=== PATIENT | female | born 1935 | race Caucasian/White ===

== ENCOUNTER 2020-04-28 11:52 | Emergency (ER) | payer MEDICARE, OTHER ==
--- NOTE | 2020-04-28 12:03 | EDM.PDOC ---
ED HPI GENERAL MEDICAL PROBLEM - General Stated Complaint: FALL VIA NORTH Time Seen by Provider: 04/28/20 11:56 Source of Information: Reports: Patient, EMS History Limitations: Reports: No Limitations - History of Present Illness INITIAL COMMENTS - FREE TEXT/NARRATIVE: Kathy is an 84 year old female who presents to the ED today via EMS after she fell down 2 stairs, striking her face on a carpeted surface. Patient reports that her left knee gave out on her. She denies any chest pain, lightheadedness/ SOB prior to the fall. Patient denies any injuries other than right eye swelling. Patient denies any visual changes or any significant pain. Patient is currently receiving IV antibiotics out patient for LE stasis ulcerations. Patient arrives here bradycardic, states that her heart rate normally runs low. Onset: Today, Sudden - Related Data Allergies Allergy/AdvReac Type Severity Reaction Status Date / Time bee venom protein (honey bee) Allergy Severe Anaphylactic Verified 04/24/20 14: 50 Shock Sulfa (Sulfonamide Allergy Hives Verified 04/20/20 12:50 Antibiotics) Home Meds: Home Meds Aspirin [Children's Aspirin] 81 mg PO DAILY 04/20/20 [History] Furosemide 40 mg PO BID 04/20/20 [History] Insuln Asp Prot/Insulin Aspart [NovoLOG Mix 70-30] 22 units SQ QPM 04/20/20 [ History] Insuln Asp Prot/Insulin Aspart [NovoLOG Mix 70-30] 25 units SQ QAM 04/20/20 [ History] Levothyroxine Sodium [Synthroid] 125 mcg PO DAILY 04/20/20 [History] Simvastatin 80 mg PO DAILY 04/20/20 [History] atenoloL [Tenormin] 100 mg PO DAILY 04/20/20 [History] lisinopriL [Lisinopril] 40 mg PO DAILY 04/20/20 [History] Review of Systems - Review of Systems Review Of Systems: Comprehensive ROS is negative, except as noted in HPI. ED EXAM, GENERAL - Physical Exam Exam: See Below Exam Limited By: No Limitations General Appearance: Alert, WD/WN, No Apparent Distress Eye Exam: Bilateral Eye: EOMI, Normal Fundi, Normal Inspection, PERRL Ears: Normal External Exam Nose: Normal Inspection Throat/Mouth: Normal Oropharynx Head: Facial Swelling (right periorbital region, no crepitus) Neck: Normal Inspection, Supple, Non-Tender. No: Tender Lateral, Tender Midline Respiratory/Chest: No Respiratory Distress, Lungs Clear, Normal Breath Sounds, Chest Non-Tender Cardiovascular: Normal Peripheral Pulses, Bradycardia GI/Abdominal: Normal Bowel Sounds, Soft, Non-Tender Back Exam: Normal Inspection, Full Range of Motion. No: Vertebral Tenderness Extremities: Other (left leg wrapped due to ulcerations) Neurological: Alert, Oriented, CN II-XII Intact Psychiatric: Normal Affect, Normal Mood Skin Exam: Warm, Dry, Intact, Other (PICC line in left AC) Lymphatic: No Adenopathy Course - Vital Signs Text/Narrative:: Kathy is an 84 year old female, presents to the ED via EMS today after she fell down two steps. Please refer to HPI and focused exam. Trauma called secondary to mechanism. Patient arrives alert and oriented, no loc, only positive finding on exam is right periorbital swelling and bruising. CT of head , cervical spine and facial CT obtained. Heart rate is bradycardic, in the 40' s. Last two clinic visits in [facility] reviewed with heart rate in the 40's. Radiology called, patient has non displaced fractures through both pedicles at C5 with no subluxation. CT of head and facial bones/orbits are negative for anything acute related to fall. GCS remains 15. I discussed patient with neurosurgeon, Dr. Dunne at [facility] who states this is a stable fracture and would like patient to wear a cervical collar for 3 months at all times, no driving during this time, she would like to see her in 3 months for reimaging. Patient was placed in foam collar as a [place] collar and [place] collar will in now way fit due to patient's body habitus. Patient instructed on fracture, C-Collar use including wearing at all times including bedtime. Tylenol for pain, ice right eye. Reasons to return to the ED discussed in detail. Patient's updated on plan of care by nursing staff. Patient discharged in stable condition with her driving to her infusion appt which is at 2 PM. Patient discharged in stable condition with GCS of 15 and intact neuro/focal status. - Orders/Labs/Meds Orders: Active Orders 24 hr Category Date Time Status EKG Documentation Completion [RC] ASDIRECTED Care 04/28/20 12:03 Active EKG 12 Lead [EK] Stat Ther 04/28/20 12:03 Stop Req Departure - Departure Time of Disposition: 13:30 Disposition: Home, Self-Care 01 Condition: Fair Clinical Impression: Fall (on) (from) other stairs and steps, initial encounter, C5 pedicle fracture Periorbital contusion of right eye Qualifiers: Encounter type: initial encounter Qualified Code(s): S05.11XA - Contusion of eyeball and orbital tissues, right eye, initial encounter - Discharge Information Instructions: Fall Prevention in the Home, Adult, [id number], Eye Contusion, [id number], Cervical Spine Fracture, Stable Referrals: PCP,None [Primary Care Provider] - Additional Instructions: Kathy, Wear collar at all times, you can remove to bath and change clothes, wear at bedtime as well. Do not drive for 3 months until collar can be cleared which you will need to follow up with Dr. Dunne, neurosurgeon, at [facility], in 3 months for repeat Cervical spine CT scan. I would recommend Tylenol 650 mg every 4 hours for pain as needed, do not exceed more than 4,000 mg in 24 hours. Ice to right eye for twenty minutes every couple of hours for the first 2 days. Return here with any new concerns or worsening symptoms. - My Orders Last 24 Hours: My Active Orders 04/28/20 12:03 EKG Documentation Completion [RC] ASDIRECTED EKG 12 Lead [EK] Stat - Assessment/Plan Last 24 Hours: My Active Orders 04/28/20 12:03 EKG Documentation Completion [RC] ASDIRECTED EKG 12 Lead [EK] Stat
--- NOTE | 2020-04-28 12:56 | CT ---
Cervical Spine wo Cont CLINICAL HISTORY: Fall TECHNIQUE: Multiple CT sections were taken through the cervical spine in the transaxial projection. Coronal and sagittal views were reconstructed. Images were viewed at bone as well as soft tissue windows on a digital workstation. Auto dosage reduction and iterative reconstruction techniques employed. FINDINGS: There is a nondisplaced fracture through both pedicles at C5. There is severe diffuse degenerative disc disease. There is moderate osteoarthritis throughout the cervical facets. Alignment is maintained. IMPRESSION: Nondisplaced fractures through both pedicles at C5. 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
--- NOTE | 2020-04-28 12:59 | CT ---
Head wo Cont CLINICAL HISTORY: Fall COMPARISON: None TECHNIQUE: Transverse scans were obtained from the base of the skull through the vertex without IV contrast on a multislice, multidetector CT scanner. 04/27/2020 FINDINGS: No focal abnormal parenchymal density is identified.. There is no mass effect, hemorrhage, or extraaxial collection. The basal cisterns and sulci over the convexities are prominent. The ventricles are prominent. There is sphenoid sinusitis. IMPRESSION: Moderate age-related atrophy. No acute intracranial findings
--- NOTE | 2020-04-28 13:07 | CT ---
Max Facial Sinus wo Cont : TECHNIQUE: Axial tomographic images were obtained from the upper calvarium through the upper neck, without iodinated contrast enhancement. Auto dosage reduction and iterative reconstruction techniques employed. CLINICAL HISTORY: Patient trauma FINDINGS: There is left maxillary, ethmoid and sphenoid sinusitis. Bony sinuses are intact. There is some moderate leftward deviation of the nasal septum and some leftward the angulation of the nasal bones. This is likely chronic. There is a punctate ossific or calcific density just off the tip of the anterior nasal spine. A small fracture is not excluded. Zygomatic arches are intact. Bony orbits appear intact orbital fat planes are well preserved. Mandible and TMJs appear intact IMPRESSION: Pansinusitis Moderate deviation of the nasal septum and curvature of the nasal bones Small defect off the tip of the anterior nasal spine could represent a tiny fracture
== END 2020-04-28 13:20 | disposition home or self-care (01) ==
LOC: JP.ED 11:52
DX: S12.401A Unspecified nondisplaced fracture of fifth cervical vertebra, initial encounter for closed fracture (principal); W10.8XXA Fall (on) (from) other stairs and steps, initial encounter; S05.11XA Contusion of eyeball and orbital tissues, right eye, initial encounter; Z91.030 Bee allergy status; Z88.2 Allergy status to sulfonamides; Z79.82 Long term (current) use of aspirin; Z79.84 Long term (current) use of oral hypoglycemic drugs; Z79.899 Other long term (current) drug therapy; L08.9 Local infection of the skin and subcutaneous tissue, unspecified
CPT/HCPCS: 70450; 70486; 72125; 96365; 99284; 99285; J1335; J7050; 93005

== ENCOUNTER 2020-04-29 19:57 | Emergency (ER) | payer MEDICARE, OTHER ==
--- NOTE | 2020-04-29 20:28 | EDM.PDOC ---
ED HPI GENERAL MEDICAL PROBLEM - General Chief Complaint: General Stated Complaint: MEDICAL VIA NORTH Time Seen by Provider: 04/29/20 20:13 Source of Information: Reports: Patient, Old Records, RN Notes Reviewed History Limitations: Reports: No Limitations - History of Present Illness INITIAL COMMENTS - FREE TEXT/NARRATIVE: 84-year-old female presents emergency department today for a fall, she was evaluated in the emergency department yesterday for a fall fell down [address] scan head facial bones and neck abnormality is nondisplaced fracture C5 pedicles. She also has a known history of bradycardia review of clinic records reveal multiple visits heart rate in the 40s she does take 100 mg daily of atenolol history of hypertension, she denies pain at this time states today's fall was mainly on her backside she did not hit her head there was no loss of consciousness she recently acquired a walker yesterday but has not had time to use it denies pain Pain Score (Numeric/FACES): 0 - Related Data Allergies Allergy/AdvReac Type Severity Reaction Status Date / Time bee venom protein (honey bee) Allergy Severe Anaphylactic Verified 04/29/20 20: 00 Shock Sulfa (Sulfonamide Allergy Hives Verified 04/29/20 20:00 Antibiotics) Home Meds: Home Meds Aspirin [Children's Aspirin] 81 mg PO DAILY 04/20/20 [History] Furosemide 40 mg PO BID 04/20/20 [History] Insuln Asp Prot/Insulin Aspart [NovoLOG Mix 70-30] 22 units SQ QPM 04/20/20 [ History] Insuln Asp Prot/Insulin Aspart [NovoLOG Mix 70-30] 25 units SQ QAM 04/20/20 [ History] Levothyroxine Sodium [Synthroid] 125 mcg PO DAILY 04/20/20 [History] Simvastatin 80 mg PO DAILY 04/20/20 [History] atenoloL [Tenormin] 100 mg PO DAILY 04/20/20 [History] lisinopriL [Lisinopril] 40 mg PO DAILY 04/20/20 [History] Past Medical History Cardiovascular History: Reports: Arrhythmia (Bradycardia), Hypertension Respiratory History: Reports: Sleep Apnea Social & Family History - Tobacco Use Smoking Status *Q: Never Smoker - Caffeine Use Caffeine Use: Reports: Coffee, Soda - Recreational Drug Use Recreational Drug Use: No ED ROS GENERAL - Review of Systems Review Of Systems: See Below Constitutional: Reports: No Symptoms HEENT: Reports: No Symptoms Respiratory: Reports: No Symptoms Cardiovascular: Reports: Other (Slow heart rate). Denies: Chest Pain, Blood Pressure Problem, Lightheadedness GI/Abdominal: Reports: No Symptoms : Reports: No Symptoms Musculoskeletal: Reports: No Symptoms Skin: Reports: No Symptoms Neurological: Reports: No Symptoms ED EXAM, GENERAL - Physical Exam Exam: See Below Free Text/Narrative:: No tenderness to shoulders elbows wrists bilaterally no chest wall tenderness pelvic rocks is negative no tenderness to knees ankles bilaterally Exam Limited By: Other (Is in a soft collar placed yesterday) General Appearance: Alert, WD/WN, No Apparent Distress Ears: Normal External Exam, Normal Canal, Hearing Grossly Normal, Normal TMs Nose: Normal Inspection, Normal Mucosa, No Blood Throat/Mouth: Normal Inspection, Normal Lips, Normal Teeth, Normal Gums, Normal Oropharynx, Normal Voice, No Airway Compromise Head: Atraumatic, Normocephalic Neck: Other (Placed in a soft collar) Respiratory/Chest: No Respiratory Distress, Lungs Clear, Normal Breath Sounds, No Accessory Muscle Use, Chest Non-Tender Cardiovascular: No Murmur, Bradycardia GI/Abdominal: Soft, Non-Tender Course - Vital Signs Last Recorded V/S: Last Vital Signs Temp 97.3 F 04/29/20 20:04 Pulse 49 L 04/29/20 21:27 Resp 29 H 04/29/20 21:27 BP 190/79 H 04/29/20 21:27 Pulse Ox 93 L 04/29/20 21:27 - Orders/Labs/Meds Orders: Active Orders 24 hr Category Date Time Status CULTURE URINE [RM] Urgent Lab 04/29/20 22:02 Received Labs: Laboratory Tests 04/29/20 04/29/20 04/29/20 Range/Units 20:24 21:06 21:06 WBC 11.9 H (4.5-11.0) K/uL RBC 4.81 (3.30-5.50) M/uL Hgb 12.5 (12.0-15.0) g/dL Hct 41.4 (36.0-48.0) % MCV 86 (80-98) fL MCH 26 L (27-31) pg MCHC 30 L (32-36) % Plt Count 146 L (150-400) K/uL Neut % (Auto) 77 H (36-66) % Lymph % (Auto) 14 L (24-44) % [place] % (Auto) 8 H (2-6) % Eos % (Auto) 1 L (2-4) % Baso % (Auto) 0 (0-1) % Sodium 145 (140-148) mmol/L Potassium 5.0 (3.6-5.2) mmol/L Chloride 109 H (100-108) mmol/L Carbon Dioxide 26 (21-32) mmol/L Anion Gap 15.0 H (5.0-14.0) mmol/L BUN 25 H (7-18) mg/dL Creatinine 1.0 (0.6-1.0) mg/dL Est Cr Clr Drug Dosing 32.53 mL/min Estimated GFR (MDRD) 53 L (>60) Glucose 87 (74-106) mg/dL Lactic Acid 1.5 (0.4-2.0) mmol/L Calcium 9.1 (8.5-10.1) mg/dL Total Bilirubin 0.9 (0.2-1.0) mg/dL AST 39 H (15-37) U/L ALT 44 (12-78) U/L Alkaline Phosphatase 80 (46-116) U/L Troponin I 0.024 (0.000-0.056) ng/mL Total Protein 7.1 (6.4-8.2) g/dL Albumin 3.2 L (3.4-5.0) g/dL Globulin 3.9 H (2.3-3.5) g/dL Albumin/Globulin Ratio 0.8 L (1.2-2.2) Urine Color (YELLOW) Urine Appearance (CLEAR) Urine pH (5.0-8.0) Ur Specific [place] (1.008-1.030) Urine Protein (NEGATIVE) mg/dL Urine Glucose (UA) (NEGATIVE) mg/dL Urine Ketones (NEGATIVE) mg/dL Urine Occult Blood (NEGATIVE) Urine Nitrite (NEGATIVE) Urine Bilirubin (NEGATIVE) Urine Urobilinogen (0.2-1.0) EU/dL Ur Leukocyte Esterase (NEGATIVE) Urine RBC (0-5) Urine WBC (0-5) Ur Epithelial Cells Amorphous Sediment Urine Bacteria Urine Mucus 04/29/20 Range/Units 21:36 WBC (4.5-11.0) K/uL RBC (3.30-5.50) M/uL Hgb (12.0-15.0) g/dL Hct (36.0-48.0) % MCV (80-98) fL MCH (27-31) pg MCHC (32-36) % Plt Count (150-400) K/uL Neut % (Auto) (36-66) % Lymph % (Auto) (24-44) % [place] % (Auto) (2-6) % Eos % (Auto) (2-4) % Baso % (Auto) (0-1) % Sodium (140-148) mmol/L Potassium (3.6-5.2) mmol/L Chloride (100-108) mmol/L Carbon Dioxide (21-32) mmol/L Anion Gap (5.0-14.0) mmol/L BUN (7-18) mg/dL Creatinine (0.6-1.0) mg/dL Est Cr Clr Drug Dosing mL/min Estimated GFR (MDRD) (>60) Glucose (74-106) mg/dL Lactic Acid (0.4-2.0) mmol/L Calcium (8.5-10.1) mg/dL Total Bilirubin (0.2-1.0) mg/dL AST (15-37) U/L ALT (12-78) U/L Alkaline Phosphatase (46-116) U/L Troponin I (0.000-0.056) ng/mL Total Protein (6.4-8.2) g/dL Albumin (3.4-5.0) g/dL Globulin (2.3-3.5) g/dL Albumin/Globulin Ratio (1.2-2.2) Urine Color Yellow (YELLOW) Urine Appearance Slightly cloudy A (CLEAR) Urine pH 7.0 (5.0-8.0) Ur Specific [place] 1.020 (1.008-1.030) Urine Protein 30 H (NEGATIVE) mg/dL Urine Glucose (UA) Negative (NEGATIVE) mg/dL Urine Ketones Negative (NEGATIVE) mg/dL Urine Occult Blood Small H (NEGATIVE) Urine Nitrite Negative (NEGATIVE) Urine Bilirubin Negative (NEGATIVE) Urine Urobilinogen 0.2 (0.2-1.0) EU/dL Ur Leukocyte Esterase Small H (NEGATIVE) Urine RBC 0-5 (0-5) Urine WBC 5-10 H (0-5) Ur Epithelial Cells Many Amorphous Sediment Many Urine Bacteria Not seen Urine Mucus Not seen - Re-Assessments/Exams Free Text/Narrative Re-Assessment/Exam: 04/29/20 22:06 We did go for test drive around the emergency department she used a walker moves slow however she was able to get out of bed use the walker ambulate around the emergency department without difficulty heart rate monitor at that time showed an excellent response heart rate was in the upper 50s to mid 60s during her ambulation, remained asymptomatic during this road test Departure - Departure Time of Disposition: 22:08 Disposition: Home, Self-Care 01 Condition: Fair Clinical Impression: Weakness, Bradycardia - Discharge Information Instructions: Weakness, [id number], Bradycardia, Adult Referrals: PCP,None [Primary Care Provider] - Forms: ED Department Discharge Additional Instructions: Continue with your current medications, recommend using the walker at all times , please follow-up with your primary care in the next 3 to 5 days for reevaluation, call or return to the emergency department worsening of symptoms Sepsis Event Note (ED) - Evaluation Sepsis Screening Result: No Definite Risk - Focused Exam Vital Signs: Vital Signs Temp Pulse Resp BP Pulse Ox 04/29/20 21:27 49 L 29 H 190/79 H 93 L 04/29/20 20:51 34 L 15 126/69 92 L 04/29/20 20:24 40 L 18 139/65 92 L 04/29/20 20:04 97.3 F 44 L 14 154/62 H 93 L 04/29/20 20:00 97.3 F 44 L 14 154/62 H 93 L - My Orders Last 24 Hours: My Active Orders 04/29/20 22:02 CULTURE URINE [RM] Urgent - Assessment/Plan Last 24 Hours: My Active Orders 04/29/20 22:02 CULTURE URINE [RM] Urgent Plan: Assessment Acuity = acute Site and laterality = weakness with increasing falls, asymptomatic bradycardia Etiology = unknown probable deconditioning, bradycardia suspicious for relationship to atenolol Manifestations = none Location of injury = Home Lab values = CBC CMP unremarkable urinalysis reveals 5-10 WBCs consistent with a pyuria however no bacteria noted in the urine cultures pending she is currently on antibiotics Invanz Plan I discussed with her hospitalization for weakness versus discharge home she would like to try it at home however she must use her walker whenever she ambulates I discussed this with her as well. Have him follow-up with her primary care in the next 3 to 5 days for reevaluation and also review beta- jersey for the ongoing bradycardia at rest This note was dictated using [employer] voice recognition software please call with any questions on syntax or grammar.
== END 2020-04-29 22:23 | disposition home or self-care (01) ==
LOC: JP.ED 19:57
DX: R53.1 Weakness (principal); R00.1 Bradycardia, unspecified; I10 Essential (primary) hypertension; L08.9 Local infection of the skin and subcutaneous tissue, unspecified; Z88.2 Allergy status to sulfonamides; Z91.030 Bee allergy status; Z79.82 Long term (current) use of aspirin; Z79.899 Other long term (current) drug therapy
CPT/HCPCS: 36415; 80053; 81001; 83605; 84484; 85025; 87086; 96365; 99283; 99284; J1335; J7050

== ENCOUNTER 2020-04-30 18:06 | Inpatient (IN) | payer MEDICARE, OTHER ==
[2020-04-30] MEDS ORDERED: Ertapenem 1 GM in Sodium Chloride 0.9% 100 ML IV ONE (19:13)
--- NOTE | 2020-04-30 19:43 | EDM.PDOC ---
ED HPI GENERAL MEDICAL PROBLEM - General Chief Complaint: General Stated Complaint: MEDICAL [facility] Time Seen by Provider: 04/30/20 18:55 Source of Information: Reports: Patient History Limitations: Reports: No Limitations - History of Present Illness INITIAL COMMENTS - FREE TEXT/NARRATIVE: This is an 84-year-old with a history of hypertension, diabetes, and recent fall who presents to the emergency department with weakness. She reports that she was seen in the ED on Friday after a fall from her mechanical chair. Trauma work-up was negative at that time. She was again seen yesterday for weakness, overall work-up was unrevealing, she was noted to be bradycardic which is not a new problem for her. She was able to pass an ambulatory trial and after discussion with the ED doctor last night, the patient decided to go home rather than be admitted. Early this morning she slid out of her bed, no head strike or LOC. Due to global weakness the patient was unable to get back to standing position. She spent the entire day today on the floor, sometimes crawling around her home. Even with the assistance of her she was unable to stand. She has no headache. No focal weakness. No speech difficulty. She endorses a chronic cough, no fevers or chills, no chest pain. No abdominal pain or urinary symptoms. 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 denies Pain Score (Numeric/FACES): 0 - Related Data Allergies Allergy/AdvReac Type Severity Reaction Status Date / Time bee venom protein (honey bee) Allergy Severe Anaphylactic Verified 04/29/20 20: 00 Shock Sulfa (Sulfonamide Allergy Hives Verified 04/29/20 20:00 Antibiotics) Home Meds: Home Meds Aspirin [Children's Aspirin] 81 mg PO DAILY 04/20/20 [History] Furosemide 40 mg PO BID 04/20/20 [History] Insuln Asp Prot/Insulin Aspart [NovoLOG Mix 70-30] 22 units SQ QPM 04/20/20 [ History] Insuln Asp Prot/Insulin Aspart [NovoLOG Mix 70-30] 25 units SQ QAM 04/20/20 [ History] Levothyroxine Sodium [Synthroid] 125 mcg PO DAILY 04/20/20 [History] Simvastatin 80 mg PO DAILY 04/20/20 [History] atenoloL [Tenormin] 100 mg PO DAILY 04/20/20 [History] lisinopriL [Lisinopril] 40 mg PO DAILY 04/20/20 [History] Past Medical History HEENT History: Reports: Cataract Cardiovascular History: Reports: Arrhythmia, Hypertension Respiratory History: Reports: Sleep Apnea Other Respiratory History: Cpap at home Genitourinary History: Reports: Renal Disease, Other (See Below) Other Genitourinary History: Stage 3 kidney disease Musculoskeletal History: Reports: Arthritis Endocrine/Metabolic History: Reports: Diabetes, Type II, Hypothyroidism Hematologic History: Reports: Anticoagulation Therapy Oncologic (Cancer) History: Reports: Uterine Dermatologic History: Reports: Other (See Below) Other Dermatologic History: Venous ulcer left leg - Infectious Disease History Infectious Disease History: Reports: Chicken Pox - Past Surgical History HEENT Surgical History: Reports: Cataract Surgery, Tonsillectomy Female Surgical History: Reports: Hysterectomy Social & Family History - Tobacco Use Smoking Status *Q: Never Smoker - Caffeine Use Caffeine Use: Reports: Coffee ED ROS GENERAL - Review of Systems Review Of Systems: See Below Constitutional: Reports: Weakness HEENT: Reports: No Symptoms Respiratory: Reports: No Symptoms Cardiovascular: Reports: No Symptoms Endocrine: Reports: No Symptoms GI/Abdominal: Reports: No Symptoms : Reports: No Symptoms Musculoskeletal: Reports: No Symptoms Skin: Reports: No Symptoms Neurological: Reports: No Symptoms Psychiatric: Reports: No Symptoms Hematologic/Lymphatic: Reports: No Symptoms Immunologic: Reports: No Symptoms ED EXAM, GENERAL - Physical Exam Exam: See Below Exam Limited By: No Limitations General Appearance: Alert, No Apparent Distress Nose: Normal Inspection Throat/Mouth: Normal Inspection Head: Normocephalic, Other (Ecchymosis over the right eye, vision is intact, no pain with extraocular movements.) Neck: Normal Inspection, Non-Tender, Full Range of Motion Respiratory/Chest: Lungs Clear Cardiovascular: No Murmur, Bradycardia GI/Abdominal: Soft, Non-Tender Back Exam: Normal Inspection, Full Range of Motion Extremities: Pedal Edema Neurological: Alert, Oriented Psychiatric: Normal Affect, Normal Mood Skin Exam: Warm, Dry EKG INTERPRETATION EKG Date: 04/30/20 Rhythm: A-Fib Course - Vital Signs Last Recorded V/S: Last Vital Signs Temp 37.5 C 04/30/20 21:09 Pulse 39 L 04/30/20 21:09 Resp 20 04/30/20 21:09 BP 174/102 H 04/30/20 21:29 Pulse Ox 96 04/30/20 21:22 - Orders/Labs/Meds Orders: Active Orders 24 hr Category Date Time Status EKG Documentation Completion [RC] ASDIRECTED Care 04/30/20 18:23 Active CXR [Chest 1V Frontal] [CR] Stat Exams 04/30/20 18:24 Taken EKG 12 Lead [EK] Routine Ther 04/30/20 18:22 Ordered Medication Orders Acetaminophen (Tylenol) 650 mg PO Q4H PRN PRN Reason: Pain (Mild 1-3)/fever Albuterol (Proventil Neb Soln) 2.5 mg NEB Q4H PRN PRN Reason: Shortness Of Breath/wheezing Enoxaparin Sodium (Lovenox) 30 mg SUBCUT DAILY [facility] Furosemide (Lasix) 40 mg PO DAILY [facility] Hydroxyzine HCl (Vistaril) 100 mg IM Q6H PRN PRN Reason: Nausea/Vomiting Promethazine HCl 6.25 mg/ (Sodium Chloride) 50.25 mls @ 200 mls/hr IV Q6H PRN PRN Reason: Nausea/Vomiting Ertapenem 1 gm/ Sodium (Chloride) 100 mls @ 200 mls/hr IV Q24H [facility] Insulin Human Isoph/Insulin Regular (Humulin 70-30) 25 units SUBCUT BIDAC [facility] Levothyroxine Sodium (Synthroid) 100 mcg PO ACBREAKFAST [facility] Lisinopril (Prinivil) 40 mg PO DAILY [facility] Morphine Sulfate (Morphine) 2 mg IVPUSH Q2H PRN PRN Reason: Pain (severe 7-10) Ondansetron HCl (Zofran Odt) 4 mg PO Q6H PRN PRN Reason: Nausea able to take PO Oxycodone HCl (Oxycodone) 5 mg PO Q4H PRN PRN Reason: Pain (moderate 4-6) Simvastatin (Zocor) 80 mg PO BEDTIME [facility] Last Admin: 04/30/20 21:48 Dose: 80 mg Labs: Laboratory Tests 04/30/20 04/30/20 04/30/20 Range/Units 18:00 18:36 18:36 WBC 10.5 (4.5-11.0) K/uL RBC 4.90 (3.30-5.50) M/uL Hgb 12.4 (12.0-15.0) g/dL Hct 42.1 (36.0-48.0) % MCV 86 (80-98) fL MCH 25 L (27-31) pg MCHC 30 L (32-36) % Plt Count 198 (150-400) K/uL Sodium 145 (140-148) mmol/L Potassium 3.9 (3.6-5.2) mmol/L Chloride 107 (100-108) mmol/L Carbon Dioxide 30 (21-32) mmol/L Anion Gap 7.9 (5.0-14.0) mmol/L BUN 22 H (7-18) mg/dL Creatinine 1.1 H (0.6-1.0) mg/dL Est Cr Clr Drug Dosing 29.57 mL/min Estimated GFR (MDRD) 47 L (>60) Glucose 134 H (74-106) mg/dL Calcium 8.9 (8.5-10.1) mg/dL Magnesium (1.8-2.4) mg/dL Total Bilirubin 1.1 H (0.2-1.0) mg/dL AST 43 H (15-37) U/L ALT 45 (12-78) U/L Alkaline Phosphatase 82 (46-116) U/L Troponin I (0.000-0.056) ng/mL Total Protein 7.0 (6.4-8.2) g/dL Albumin 3.2 L (3.4-5.0) g/dL Globulin 3.8 H (2.3-3.5) g/dL Albumin/Globulin Ratio 0.8 L (1.2-2.2) TSH, Ultra Sensitive 2.147 (0.358-3.740) uIU/mL 04/30/20 04/30/20 Range/Units 18:36 18:36 WBC (4.5-11.0) K/uL RBC (3.30-5.50) M/uL Hgb (12.0-15.0) g/dL Hct (36.0-48.0) % MCV (80-98) fL MCH (27-31) pg MCHC (32-36) % Plt Count (150-400) K/uL Sodium (140-148) mmol/L Potassium (3.6-5.2) mmol/L Chloride (100-108) mmol/L Carbon Dioxide (21-32) mmol/L Anion Gap (5.0-14.0) mmol/L BUN (7-18) mg/dL Creatinine (0.6-1.0) mg/dL Est Cr Clr Drug Dosing mL/min Estimated GFR (MDRD) (>60) Glucose (74-106) mg/dL Calcium (8.5-10.1) mg/dL Magnesium 2.2 (1.8-2.4) mg/dL Total Bilirubin (0.2-1.0) mg/dL AST (15-37) U/L ALT (12-78) U/L Alkaline Phosphatase (46-116) U/L Troponin I 0.026 (0.000-0.056) ng/mL Total Protein (6.4-8.2) g/dL Albumin (3.4-5.0) g/dL Globulin (2.3-3.5) g/dL Albumin/Globulin Ratio (1.2-2.2) TSH, Ultra Sensitive (0.358-3.740) uIU/mL Meds: Medications Generic Name Dose Route Start Last Admin Trade Name Freq PRN Reason Stop Dose Admin Acetaminophen 650 mg 04/30/20 20:17 Tylenol PO Q4H PRN Pain (Mild 1-3)/fever Albuterol 2.5 mg 04/30/20 20:17 Proventil Neb Soln NEB Q4H PRN Shortness Of Breath/wheezing Enoxaparin Sodium 30 mg 05/01/20 09:00 Lovenox SUBCUT DAILY [facility] Furosemide 40 mg 05/01/20 09:00 Lasix PO DAILY [facility] Hydroxyzine HCl 100 mg 04/30/20 20:17 Vistaril IM Q6H PRN Nausea/Vomiting Promethazine HCl 6.25 mg/ 50.25 mls @ 200 mls/hr 04/30/20 20:17 Sodium Chloride IV Q6H PRN Nausea/Vomiting Ertapenem 1 gm/ Sodium 100 mls @ 200 mls/hr 05/01/20 20:00 Chloride IV Q24H [facility] Insulin Human Isoph/Insulin Regular 25 units 05/01/20 07:30 Humulin 70-30 SUBCUT BIDAC [facility] Levothyroxine Sodium 100 mcg 05/01/20 07:30 Synthroid PO ACBREAKFAST [facility] Lisinopril 40 mg 05/01/20 09:00 Prinivil PO DAILY [facility] Morphine Sulfate 2 mg 04/30/20 20:17 Morphine IVPUSH Q2H PRN Pain (severe 7-10) Ondansetron HCl 4 mg 04/30/20 20:17 Zofran Odt PO Q6H PRN Nausea able to take PO Oxycodone HCl 5 mg 04/30/20 20:17 Oxycodone PO Q4H PRN Pain (moderate 4-6) Simvastatin 80 mg 04/30/20 21:00 04/30/20 21:48 Zocor PO 80 mg BEDTIME [facility] Administration Discontinued Medications Generic Name Dose Route Start Last Admin Trade Name Freq PRN Reason Stop Dose Admin Ertapenem 1 gm/ Sodium 100 mls @ 200 mls/hr 04/30/20 19:13 04/30/20 19:23 Chloride IV 04/30/20 19:42 200 mls/hr ONETIME ONE Administration Levothyroxine Sodium 25 mcg 04/30/20 20:39 04/30/20 21:37 Levothyroxine PO 04/30/20 20:40 Not Given ONETIME ONE - Re-Assessments/Exams Free Text/Narrative Re-Assessment/Exam: 84-year-old presents with global weakness. This in the setting of recent fall. By history and exam she has no acute inciting event. She is noted to be bradycardic in the emergency department, EKG reveals slow A. fib. Exam does not show any evidence of missed traumatic injuries. She is on a low level of supplemental oxygen, but does wear this at night. Bedside ultrasound was performed which shows a grossly preserved ejection fraction. Lab work is generally unrevealing including troponin testing. BNP is pending, as well as TSH. She is not safe to be at home, at minimum requires admission for this. I did give her a dose of ertapenem which she is maintained on as an outpatient through her wound clinic. Admitted for further work-up. 04/30/20 19:44 Departure - Departure Time of Disposition: 21:00 Disposition: Admitted As Inpatient 65 Clinical Impression: Bradycardia, Fall (on) (from) other stairs and steps, subsequent encounter, Weakness A-fib Qualifiers: Atrial fibrillation type: unspecified Qualified Code(s): I48.91 - Unspecified atrial fibrillation - Discharge Information Sepsis Event Note (ED) - Evaluation Sepsis Screening Result: No Definite Risk - Focused Exam Vital Signs: Vital Signs Temp Pulse Resp BP Pulse Ox 04/30/20 19:42 53 L 24 H 170/63 H 96 04/30/20 19:05 49 L 19 173/66 H 94 L 04/30/20 18:15 36.3 C 53 L 18 130/58 L 77 L - My Orders Last 24 Hours: My Active Orders 04/30/20 18:22 EKG 12 Lead [EK] Routine 04/30/20 18:23 EKG Documentation Completion [RC] ASDIRECTED 04/30/20 18:24 CXR [Chest 1V Frontal] [CR] Stat - Assessment/Plan Last 24 Hours: My Active Orders 04/30/20 18:22 EKG 12 Lead [EK] Routine 04/30/20 18:23 EKG Documentation Completion [RC] ASDIRECTED 04/30/20 18:24 CXR [Chest 1V Frontal] [CR] Stat
[2020-04-30] MEDS ORDERED: Ondansetron 4 MG Tab.DIS PO PRN (20:17)
[2020-04-30] MEDS ORDERED: Acetaminophen 325 MG Tab PO PRN (20:17)
[2020-04-30] MEDS ORDERED: Albuterol 0.083% 2.5 MG/3 ML Neb Soln NEB PRN (20:17)
[2020-04-30] MEDS ORDERED: hydrOXYzine HCL 100 MG/2 ML SDV IM PRN (20:17)
[2020-04-30] MEDS ORDERED: oxyCODONE 5 MG Tab PO PRN (20:17)
[2020-04-30] MEDS ORDERED: Morphine 2 MG/ML Syringe IVPUSH PRN (20:17)
[2020-04-30] MEDS ORDERED: Promethazine 6.25 MG in Sodium Chloride 0.9% 50 ML IV PRN (20:17)
[2020-04-30] MEDS ORDERED: Levothyroxine 25 MCG Tab PO ONE (20:39)
--- NOTE | 2020-04-30 21:07 | PCM.HP.2 ---
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 She was found in the ED to have new onset A-fib and symptomatic but stable bradycardia. She has never been diagnosed with this before as far as she knows. She says over the last few days she has been feeling very weak and having issues with falling. She had a fall on both friday and friday nights. She was going to be admitted last night but per reports there were no beds available and she refused transfer to another facility. She is back today after saying she needed to crawl around on the floor because standing caused her to be weak and light headed. She says she feels okay as long as she is sitting. She says that as far as she knew the atenolol was for blood pressure not for a heart arrhythmia. She says now she is feeling okay and says she took all her meds today except her atenolol. She denies any NVD, changes to vision or hearing. She endorses weakness and lightheadedness. Onset of Symptoms: Reports: Gradual Symptom Onset Date: 04/28/20 Duration of Symptoms: Reports: Getting Worse Improves with: Reports: Rest Worsens with: Reports: Movement Associated Symptoms: Reports: Syncope - Related Data Allergies/Adverse Reactions: Allergies Allergy/AdvReac Type Severity Reaction Status Date / Time bee venom protein (honey bee) Allergy Severe Anaphylactic Verified 04/29/20 20: 00 Shock Sulfa (Sulfonamide Allergy Hives Verified 04/29/20 20:00 Antibiotics) Home Medications: Home Meds Aspirin [Children's Aspirin] 81 mg PO DAILY 04/20/20 [History] Furosemide 40 mg PO BID 04/20/20 [History] Insuln Asp Prot/Insulin Aspart [NovoLOG Mix 70-30] 22 units SQ QPM 04/20/20 [ History] Insuln Asp Prot/Insulin Aspart [NovoLOG Mix 70-30] 25 units SQ QAM 04/20/20 [ History] Levothyroxine Sodium [Synthroid] 125 mcg PO DAILY 04/20/20 [History] Simvastatin 80 mg PO DAILY 04/20/20 [History] atenoloL [Tenormin] 100 mg PO DAILY 04/20/20 [History] lisinopriL [Lisinopril] 40 mg PO DAILY 04/20/20 [History] Past Medical History HEENT History: Reports: Cataract Cardiovascular History: Reports: Arrhythmia, Hypertension Respiratory History: Reports: Sleep Apnea Other Respiratory History: Cpap at home Genitourinary History: Reports: Renal Disease, Other (See Below) Other Genitourinary History: Stage 3 kidney disease Musculoskeletal History: Reports: Arthritis Endocrine/Metabolic History: Reports: Diabetes, Type II, Hypothyroidism Hematologic History: Reports: Anticoagulation Therapy Oncologic (Cancer) History: Reports: Uterine Dermatologic History: Reports: Other (See Below) Other Dermatologic History: Venous ulcer left leg - Infectious Disease History Infectious Disease History: Reports: Chicken Pox - Past Surgical History HEENT Surgical History: Reports: Cataract Surgery, Tonsillectomy Female Surgical History: Reports: Hysterectomy Social & Family History - Family History Family Medical History: Noncontributory - Tobacco Use Smoking Status *Q: Never Smoker - Caffeine Use Caffeine Use: Reports: Coffee H&P Review of Systems - Review of Systems: Review Of Systems: See Below General: Reports: Weakness, Fatigue. Denies: Fever, Chills HEENT: Reports: No Symptoms (no new symptoms) Pulmonary: Reports: No Symptoms. Denies: Shortness of Breath, Wheezing, Cough Cardiovascular: Reports: Edema. Denies: Chest Pain, Palpitations, Orthopnea Gastrointestinal: Reports: No Symptoms. Denies: Abdominal Pain, Anorexia, Constipation, Diarrhea, Nausea, Vomiting Genitourinary: Reports: No Symptoms. Denies: Dysuria, Frequency Musculoskeletal: Reports: No Symptoms (has bruises that are POA from fall on friday night) Skin: Reports: Bruising (has bruises that are POA from fall on friday night, arm , face, R eye, others), Wound (L leg wound POA) Psychiatric: Reports: No Symptoms. Denies: Confusion, Depression, Anxiety Neurological: Reports: Syncope. Denies: Confusion, Dizziness, Headache, Numbness, Tingling Hematologic/Lymphatic: Reports: No Symptoms Immunologic: Reports: No Symptoms Exam - Exam Exam: See Below - Vital Signs Vital Signs: Last Vital Signs Temp 36.3 C 04/30/20 18:15 Pulse 43 L 04/30/20 20:20 Resp 25 H 04/30/20 20:20 BP 172/79 H 04/30/20 20:20 Pulse Ox 97 04/30/20 20:20 Weight: 108.862 kg - Exam Quality Assessment: Supplemental Oxygen General: Alert, Oriented, Cooperative HEENT: PERRLA (patient has swollen R eye and bruises on face from fall on Friday night, bruises are POA), EOMI, Pupils Equal. No: Conjunctiva Clear (R eye erythematous, POA from fall on 04/28/20) Neck: Supple, Trachea Midline, 2 Lungs: Clear to Auscultation, Normal Respiratory Effort Cardiovascular: Regular Rate, Regular Rhythm GI/Abdominal Exam: Normal Bowel Sounds, Soft, Non-Tender, No Organomegaly, No Distention, No Abnormal Bruit, No Mass, Pelvis Stable (Female) Exam: Deferred Rectal (Female) Exam: Deferred Back Exam: Normal Inspection, Full Range of Motion, NT Extremities: Normal Inspection, Normal Range of Motion, Non-Tender, No Pedal Edema, Normal Capillary Refill Skin: Warm, Dry, Ecchymosis (POA, from fall on 04/28), Wound (POA on L leg, ) Neurological: Cranial Nerves Intact, Reflexes Equal Bilateral Neuro Extensive - Mental Status: Alert, Oriented x3, Normal Mood/Affect, Normal Cognition Neuro Extensive - Motor, Sensory, Reflexes: CN II-XII Intact, Normal Gait, Normal Reflexes Psychiatric: Alert, Normal Affect, Normal Mood - Patient Data Lab Results Last 24 hrs: Laboratory Results - last 24 hr 04/30/20 04/30/20 04/30/20 Range/Units 18:00 18:36 18:36 WBC 10.5 (4.5-11.0) K/uL RBC 4.90 (3.30-5.50) M/uL Hgb 12.4 (12.0-15.0) g/dL Hct 42.1 (36.0-48.0) % MCV 86 (80-98) fL MCH 25 L (27-31) pg MCHC 30 L (32-36) % Plt Count 198 (150-400) K/uL Sodium 145 (140-148) mmol/L Potassium 3.9 (3.6-5.2) mmol/L Chloride 107 (100-108) mmol/L Carbon Dioxide 30 (21-32) mmol/L Anion Gap 7.9 (5.0-14.0) mmol/L BUN 22 H (7-18) mg/dL Creatinine 1.1 H (0.6-1.0) mg/dL Est Cr Clr Drug Dosing 29.57 mL/min Estimated GFR (MDRD) 47 L (>60) Glucose 134 H (74-106) mg/dL Calcium 8.9 (8.5-10.1) mg/dL Magnesium (1.8-2.4) mg/dL Total Bilirubin 1.1 H (0.2-1.0) mg/dL AST 43 H (15-37) U/L ALT 45 (12-78) U/L Alkaline Phosphatase 82 (46-116) U/L Troponin I (0.000-0.056) ng/mL Total Protein 7.0 (6.4-8.2) g/dL Albumin 3.2 L (3.4-5.0) g/dL Globulin 3.8 H (2.3-3.5) g/dL Albumin/Globulin Ratio 0.8 L (1.2-2.2) TSH, Ultra Sensitive 2.147 (0.358-3.740) uIU/mL 04/30/20 04/30/20 Range/Units 18:36 18:36 WBC (4.5-11.0) K/uL RBC (3.30-5.50) M/uL Hgb (12.0-15.0) g/dL Hct (36.0-48.0) % MCV (80-98) fL MCH (27-31) pg MCHC (32-36) % Plt Count (150-400) K/uL Sodium (140-148) mmol/L Potassium (3.6-5.2) mmol/L Chloride (100-108) mmol/L Carbon Dioxide (21-32) mmol/L Anion Gap (5.0-14.0) mmol/L BUN (7-18) mg/dL Creatinine (0.6-1.0) mg/dL Est Cr Clr Drug Dosing mL/min Estimated GFR (MDRD) (>60) Glucose (74-106) mg/dL Calcium (8.5-10.1) mg/dL Magnesium 2.2 (1.8-2.4) mg/dL Total Bilirubin (0.2-1.0) mg/dL AST (15-37) U/L ALT (12-78) U/L Alkaline Phosphatase (46-116) U/L Troponin I 0.026 (0.000-0.056) ng/mL Total Protein (6.4-8.2) g/dL Albumin (3.4-5.0) g/dL Globulin (2.3-3.5) g/dL Albumin/Globulin Ratio (1.2-2.2) TSH, Ultra Sensitive (0.358-3.740) uIU/mL Result Diagrams: 04/30/20 18:36 04/30/20 18:36 EKG INTERPRETATION EKG Date: 04/30/20 Rhythm: A-Fib Sepsis Event Note - Evaluation Sepsis Screening Result: No Definite Risk - Focused Exam Vital Signs: Vital Signs Temp Pulse Resp BP Pulse Ox 04/30/20 20:20 43 L 25 H 172/79 H 97 04/30/20 19:42 53 L 24 H 170/63 H 96 04/30/20 19:05 49 L 19 173/66 H 94 L 04/30/20 18:15 36.3 C 53 L 18 130/58 L 77 L Date Exam was Performed: 04/30/20 Time Exam was Performed: 21:09 *Q Meaningful Use (ADM) - VTE *Q VTE Mechanical Contraindications *Q: At Risk for Falls - Problem List (1) Bradycardia SNOMED Code(s): 71220384 ICD Code: R00.1 - BRADYCARDIA, UNSPECIFIED Status: Acute Current Visit: No Onset Date: Unknown Problem Details: Will place patient on continuous cardiac monitoring. If patient becomes symptomatic please call provider. Call if lower than 20. DNR (2) A-fib SNOMED Code(s): 81430231 ICD Code: I48.91 - UNSPECIFIED ATRIAL FIBRILLATION Status: Acute Current Visit: Yes Onset Date: Unknown Problem Details: Will hold atenolol for now as patient is bradycardic. Likely patient may need cardiology consult as an outpatient if she remains stable. Qualifiers: Atrial fibrillation type: unspecified Qualified Code(s): I48.91 - Unspecified atrial fibrillation (3) Weakness SNOMED Code(s): 60568383 ICD Code: R53.1 - WEAKNESS Status: Acute Current Visit: No Onset Date: ~04/28/20 Problem Details: Will hold atenolol for now, if patient develops symptoms she may require transfer to an outside hospital. Otherwise likely this will resolve with resumption of normal heartrate (4) HLD (hyperlipidemia) SNOMED Code(s): 68588248 ICD Code: E78.5 - HYPERLIPIDEMIA, UNSPECIFIED Status: Acute Current Visit : Yes Onset Date: Unknown Problem Details: Will resume patient's simvastatin 80mg QD Qualifiers: Hyperlipidemia type: mixed hyperlipidemia Qualified Code(s): E78.2 - Mixed hyperlipidemia (5) Diabetes type 2, controlled SNOMED Code(s): 15271223, 125583108 ICD Code: E11.9 - TYPE 2 DIABETES MELLITUS WITHOUT COMPLICATIONS Status: Acute Current Visit: Yes Onset Date: Unknown Problem Details: Will continue patient's 70/30 insulin for T2DM at 25u nightly Qualifiers: Diabetes mellitus correction insulin use: unspecified correction insulin use status Diabetes mellitus complication status: with unspecified complications Qualified Code(s): E11.8 - Type 2 diabetes mellitus with unspecified complications (6) HTN (hypertension) SNOMED Code(s): 61640200 ICD Code: I10 - ESSENTIAL (PRIMARY) HYPERTENSION Status: Acute Current Visit: Yes Onset Date: Unknown Problem Details: Will resume patient's lisinopril and hold atenolol for now (7) Periorbital contusion of right eye SNOMED Code(s): 40448618 ICD Code: S05.11XA - CONTUSION OF EYEBALL AND ORBITAL TISSUES, RIGHT EYE, INIT Status: Acute Current Visit: No Onset Date: ~04/28/20 Problem Details: Patient's fall happened on 04/28/20 and is POA Qualifiers: Encounter type: subsequent encounter Qualified Code(s): S05.11XD - Contusion of eyeball and orbital tissues, right eye, subsequent encounter (8) Hypothyroidism SNOMED Code(s): 29393201 ICD Code: E03.9 - HYPOTHYROIDISM, UNSPECIFIED Status: Acute Current Visit : Yes Onset Date: Unknown Problem Details: her TSH is normal and not likely contributing to her A-fib. Will resume her 125mg Levothyroxine Qualifiers: Hypothyroidism type: unspecified Qualified Code(s): E03.9 - Hypothyroidism , unspecified (9) Fall (on) (from) other stairs and steps, subsequent encounter SNOMED Code(s): 959335477 ICD Code: W10.8XXD - FALL (ON) (FROM) OTHER STAIRS AND STEPS, SUBS ENCNTR Status: Acute Current Visit: Yes Onset Date: ~04/28/20 Problem Details: Patient's fall is POA from 04/28/20 (10) Edema of both lower extremities SNOMED Code(s): 841942167, 25855408, 378861258 ICD Code: R60.0 - LOCALIZED EDEMA Status: Acute Current Visit: Yes Onset Date: Unknown Problem Details: Will continue furosemide for patient's LE edema. Patient has wounds on Left leg that are POA (11) Stasis ulcer of left lower extremity SNOMED Code(s): 025303370 ICD Code: I83.029 - VARICOSE VEINS OF LEFT LOWER EXTREMITY W ULCER OF UNSP SITE; L97.929 - NON-PRS CHRONIC ULC UNSP PRT OF L LOW LEG W UNSP SEVERITY Status: Acute Current Visit: Yes Onset Date: Unknown Problem Details: Patient has been seeing Dr. Teixeira and has been receiving ertapenem for this. The wound is POA Problem List Initiated/Reviewed/Updated: Yes Orders Last 24hrs: Active Orders 24 hr Category Date Time Status Patient Status [ADT] Routine ADT 04/30/20 20:12 Ordered Cardiac Monitoring [RC] CONTINUOUS Care 04/30/20 20:20 Ordered EKG Documentation Completion [RC] ASDIRECTED Care 04/30/20 18:23 Active Oxygen Therapy [RC] PRN Care 04/30/20 20:12 Ordered Pulse Oximetry [RC] CONTINUOUS Care 04/30/20 20:20 Ordered RT Aerosol Therapy [RC] ASDIRECTED Care 04/30/20 20:24 Ordered Up With Assistance [RC] ASDIRECTED Care 04/30/20 20:17 Ordered VTE/DVT Education [RC] DAILY Care 04/30/20 20:46 Ordered VTE/DVT Education [RC] Per Unit Routine Care 04/30/20 20:12 Ordered Vital Signs [RC] Q4H Care 04/30/20 20:12 Ordered Regular Diet [DIET] Diet 05/01/20 Breakfast Ordered CXR [Chest 1V Frontal] [CR] Stat Exams 04/30/20 18:24 Taken CBC WITH AUTO DIFF [HEME] Timed Lab 05/01/20 08:17 Ordered COMPREHENSIVE METABOLIC PN,CMP [CHEM] Timed Lab 05/01/20 08:17 Ordered Acetaminophen [Tylenol] Med 04/30/20 20:17 Ordered 650 mg PO Q4H PRN Albuterol [Proventil Neb Soln] Med 04/30/20 20:17 Ordered 2.5 mg NEB Q4H PRN Enoxaparin [Lovenox] Med 05/01/20 09:00 Ordered 40 mg SUBCUT DAILY Furosemide [Lasix] Med 05/01/20 09:00 Ordered 40 mg PO DAILY Insulin NPH/Insulin Reg,Human [HumuLIN 70-30] Med 05/01/20 07:30 Ordered 25 units SUBCUT BIDAC Levothyroxine [Synthroid] Med 05/01/20 07:30 Ordered 100 mcg PO ACBREAKFAST Morphine Sulfate [Morphine] Med 04/30/20 20:17 Ordered 2 mg IVPUSH Q2H PRN Ondansetron [Zofran ODT] Med 04/30/20 20:17 Ordered 4 mg PO Q6H PRN Promethazine [Phenergan] 6.25 mg Med 04/30/20 20:17 Ordered Sodium Chloride 0.9% [Normal Saline] 50 ml IV Q6H Simvastatin [Zocor] Med 04/30/20 21:00 Ordered 80 mg PO BEDTIME hydrOXYzine HCL [Vistaril] Med 04/30/20 20:17 Ordered 100 mg IM Q6H PRN lisinopriL [Prinivil] Med 05/01/20 09:00 Ordered 40 mg PO DAILY oxyCODONE Med 04/30/20 20:17 Ordered 5 mg PO Q4H PRN Resuscitation Status Routine Resus Stat 04/30/20 20:12 Ordered EKG 12 Lead [EK] Routine Ther 04/30/20 18:22 Ordered Medication Orders Acetaminophen (Tylenol) 650 mg PO Q4H PRN PRN Reason: Pain (Mild 1-3)/fever Albuterol (Proventil Neb Soln) 2.5 mg NEB Q4H PRN PRN Reason: Shortness Of Breath/wheezing Enoxaparin Sodium (Lovenox) 40 mg SUBCUT DAILY [facility] Furosemide (Lasix) 40 mg PO DAILY [facility] Hydroxyzine HCl (Vistaril) 100 mg IM Q6H PRN PRN Reason: Nausea/Vomiting Promethazine HCl 6.25 mg/ (Sodium Chloride) 50.25 mls @ 200 mls/hr IV Q6H PRN PRN Reason: Nausea/Vomiting Insulin Human Isoph/Insulin Regular (Humulin 70-30) 25 units SUBCUT BIDAC [facility] Levothyroxine Sodium (Synthroid) 100 mcg PO ACBREAKFAST [facility] Lisinopril (Prinivil) 40 mg PO DAILY [facility] Morphine Sulfate (Morphine) 2 mg IVPUSH Q2H PRN PRN Reason: Pain (severe 7-10) Ondansetron HCl (Zofran Odt) 4 mg PO Q6H PRN PRN Reason: Nausea able to take PO Oxycodone HCl (Oxycodone) 5 mg PO Q4H PRN PRN Reason: Pain (moderate 4-6) Simvastatin (Zocor) 80 mg PO BEDTIME JULIANNE - Mortality Measure Prognosis:: Good
[2020-04-30] MEDS: Simvastatin 20 MG Tab PO SCH (21:48)
[2020-05-01] MEDS ORDERED: Insulin NPH/Insulin Regular,Human 70-30 100 Units/ML 10 ML Vial SUBCUT SCH (07:30)
[2020-05-01] MEDS ORDERED: [UNRECOGNIZED DRUG - OTHER] SQ SCH (09:00)
[2020-05-01] MEDS ORDERED: INSULN ASP PROT SQ SCH ×2 (09:00→17:00)
[2020-05-01] MEDS ORDERED: INSULIN ASPART SQ SCH ×2 (09:00→17:00)
[2020-05-01] MEDS: Aspirin 81 MG Tab.Chew PO SCH (09:49)
[2020-05-01] MEDS: Levothyroxine 100 MCG Tab PO SCH (09:50)
[2020-05-01] MEDS: Insulin Lispro Protamine/Lispro 75-25 100 Units/ML 10 ML Vial SUBCUT SCH ×2 (09:51→18:26)
[2020-05-01] MEDS: Enoxaparin 30 MG/0.3 ML Syringe SUBCUT SCH (09:54)
--- NOTE | 2020-05-01 09:54 | CR ---
CHEST: Portable 04/30/2020 at 6:48 PM CLINICAL HISTORY:Hypoxia COMPARISON:2012 FINDINGS: Heart is moderately enlarged. Pulmonary vascular is mildly cephalized. There are atherosclerotic changes in the aorta. Lung markings are mildly prominent. Some of this is due to patient body habitus. Impression: Cardiomegaly with mild vascular cephalization may represent some pulmonary venous hypertension
[2020-05-01] MEDS: Albuterol/Ipratropium 3.0-0.5 MG/3 ML Neb Soln NEB SCH ×3 (11:14→20:53)
[2020-05-01] MEDS: Furosemide 40 MG Tab PO SCH (11:52)
[2020-05-01] MEDS: Lisinopril 20 MG Tab PO SCH (11:53)
--- NOTE | 2020-05-01 14:45 | PCM.PN ---
- General Info Date of Service: 05/01/20 Subjective Update: No acute events overnight. No fevers. She still feels weak but feels a little better than yesterday. Heart rate has been pretty consistently in the 40s though occasionally will rise to the low 50s. Also will drop into the upper 20s and low 30s at times. No chest pain. No complaints of shortness of breath. Functional Status: Reports: Pain Controlled, Tolerating Diet - Review of Systems General: Reports: Weakness - Patient Data Vitals - Most Recent: Last Vital Signs Temp 36.9 C 05/01/20 10:19 Pulse 45 L 05/01/20 11:14 Resp 18 05/01/20 10:19 BP 150/46 H 05/01/20 10:19 Pulse Ox 92 L 05/01/20 11:14 Weight - Most Recent: 111.811 kg I&O - Last 24 Hours: Intake & Output 04/30/20 05/01/20 05/01/20 22:59 06:59 14:59 Intake Total 50 180 Balance 50 180 Lab Results Last 24 Hours: Laboratory Results - last 24 hr 04/30/20 04/30/20 04/30/20 Range/Units 18:00 18:36 18:36 WBC 10.5 (4.5-11.0) K/uL RBC 4.90 (3.30-5.50) M/uL Hgb 12.4 (12.0-15.0) g/dL Hct 42.1 (36.0-48.0) % MCV 86 (80-98) fL MCH 25 L (27-31) pg MCHC 30 L (32-36) % Plt Count 198 (150-400) K/uL Neut % (Auto) (36-66) % Lymph % (Auto) (24-44) % [place] % (Auto) (2-6) % Eos % (Auto) (2-4) % Baso % (Auto) (0-1) % Sodium 145 (140-148) mmol/L Potassium 3.9 (3.6-5.2) mmol/L Chloride 107 (100-108) mmol/L Carbon Dioxide 30 (21-32) mmol/L Anion Gap 7.9 (5.0-14.0) mmol/L BUN 22 H (7-18) mg/dL Creatinine 1.1 H (0.6-1.0) mg/dL Est Cr Clr Drug Dosing 29.57 mL/min Estimated GFR (MDRD) 47 L (>60) Glucose 134 H (74-106) mg/dL Calcium 8.9 (8.5-10.1) mg/dL Magnesium (1.8-2.4) mg/dL Total Bilirubin 1.1 H (0.2-1.0) mg/dL AST 43 H (15-37) U/L ALT 45 (12-78) U/L Alkaline Phosphatase 82 (46-116) U/L Troponin I (0.000-0.056) ng/mL Total Protein 7.0 (6.4-8.2) g/dL Albumin 3.2 L (3.4-5.0) g/dL Globulin 3.8 H (2.3-3.5) g/dL Albumin/Globulin Ratio 0.8 L (1.2-2.2) TSH, Ultra Sensitive 2.147 (0.358-3.740) uIU/mL 04/30/20 04/30/20 05/01/20 Range/Units 18:36 18:36 04:10 WBC 10.3 (4.5-11.0) K/uL RBC 4.47 (3.30-5.50) M/uL Hgb 11.5 L (12.0-15.0) g/dL Hct 38.6 (36.0-48.0) % MCV 86 (80-98) fL MCH 26 L (27-31) pg MCHC 30 L (32-36) % Plt Count 193 (150-400) K/uL Neut % (Auto) 80 H (36-66) % Lymph % (Auto) 11 L (24-44) % [place] % (Auto) 9 H (2-6) % Eos % (Auto) 1 L (2-4) % Baso % (Auto) 0 (0-1) % Sodium (140-148) mmol/L Potassium (3.6-5.2) mmol/L Chloride (100-108) mmol/L Carbon Dioxide (21-32) mmol/L Anion Gap (5.0-14.0) mmol/L BUN (7-18) mg/dL Creatinine (0.6-1.0) mg/dL Est Cr Clr Drug Dosing mL/min Estimated GFR (MDRD) (>60) Glucose (74-106) mg/dL Calcium (8.5-10.1) mg/dL Magnesium 2.2 (1.8-2.4) mg/dL Total Bilirubin (0.2-1.0) mg/dL AST (15-37) U/L ALT (12-78) U/L Alkaline Phosphatase (46-116) U/L Troponin I 0.026 (0.000-0.056) ng/mL Total Protein (6.4-8.2) g/dL Albumin (3.4-5.0) g/dL Globulin (2.3-3.5) g/dL Albumin/Globulin Ratio (1.2-2.2) TSH, Ultra Sensitive (0.358-3.740) uIU/mL 05/01/20 Range/Units 04:10 WBC (4.5-11.0) K/uL RBC (3.30-5.50) M/uL Hgb (12.0-15.0) g/dL Hct (36.0-48.0) % MCV (80-98) fL MCH (27-31) pg MCHC (32-36) % Plt Count (150-400) K/uL Neut % (Auto) (36-66) % Lymph % (Auto) (24-44) % [place] % (Auto) (2-6) % Eos % (Auto) (2-4) % Baso % (Auto) (0-1) % Sodium 145 (140-148) mmol/L Potassium 4.0 (3.6-5.2) mmol/L Chloride 108 (100-108) mmol/L Carbon Dioxide 30 (21-32) mmol/L Anion Gap 7.2 (5.0-14.0) mmol/L BUN 20 H (7-18) mg/dL Creatinine 1.1 H (0.6-1.0) mg/dL Est Cr Clr Drug Dosing 29.57 mL/min Estimated GFR (MDRD) 47 L (>60) Glucose 107 H (74-106) mg/dL Calcium 8.6 (8.5-10.1) mg/dL Magnesium (1.8-2.4) mg/dL Total Bilirubin 1.1 H (0.2-1.0) mg/dL AST 38 H (15-37) U/L ALT 39 (12-78) U/L Alkaline Phosphatase 73 (46-116) U/L Troponin I (0.000-0.056) ng/mL Total Protein 6.4 (6.4-8.2) g/dL Albumin 2.9 L (3.4-5.0) g/dL Globulin 3.5 (2.3-3.5) g/dL Albumin/Globulin Ratio 0.8 L (1.2-2.2) TSH, Ultra Sensitive (0.358-3.740) uIU/mL Med Orders - Current: Current Medications Acetaminophen (Tylenol) 650 mg PO Q4H PRN PRN Reason: Pain (Mild 1-3)/fever Last Admin: 05/01/20 01:57 Dose: 650 mg Albuterol (Proventil Neb Soln) 2.5 mg NEB Q4H PRN PRN Reason: Shortness Of Breath/wheezing Last Admin: 05/01/20 01:26 Dose: 2.5 mg Albuterol/Ipratropium (Duoneb 3.0-0.5 Mg/3 Ml) 3 ml NEB QIDRT [facility] Last Admin: 05/01/20 14:38 Dose: 3 ml Aspirin (Aspirin) 81 mg PO DAILY [facility] Last Admin: 05/01/20 09:49 Dose: 81 mg Enoxaparin Sodium (Lovenox) 30 mg SUBCUT DAILY [facility] Last Admin: 05/01/20 09:54 Dose: 30 mg Furosemide (Lasix) 40 mg PO DAILY [facility] Last Admin: 05/01/20 11:52 Dose: 40 mg Hydroxyzine HCl (Vistaril) 100 mg IM Q6H PRN PRN Reason: Nausea/Vomiting Promethazine HCl 6.25 mg/ (Sodium Chloride) 50.25 mls @ 200 mls/hr IV Q6H PRN PRN Reason: Nausea/Vomiting Ertapenem 1 gm/ Sodium (Chloride) 100 mls @ 200 mls/hr IV Q24H [facility] Insulin Lispro Protam/Lispro Human (Humalog Mix 75-25) 22 unit SUBCUT QPM [facility] Insulin Lispro Protam/Lispro Human (Humalog Mix 75-25) 25 unit SUBCUT QAM [facility] Last Admin: 05/01/20 09:51 Dose: 25 units Levothyroxine Sodium (Synthroid) 100 mcg PO ACBREAKFAST [facility] Last Admin: 05/01/20 09:50 Dose: 100 mcg Lisinopril (Prinivil) 40 mg PO DAILY [facility] Last Admin: 05/01/20 11:53 Dose: Not Given Morphine Sulfate (Morphine) 2 mg IVPUSH Q2H PRN PRN Reason: Pain (severe 7-10) Ondansetron HCl (Zofran Odt) 4 mg PO Q6H PRN PRN Reason: Nausea able to take PO Oxycodone HCl (Oxycodone) 5 mg PO Q4H PRN PRN Reason: Pain (moderate 4-6) Simvastatin (Zocor) 80 mg PO BEDTIME [facility] Last Admin: 04/30/20 21:48 Dose: 80 mg Discontinued Medications Ertapenem 1 gm/ Sodium (Chloride) 100 mls @ 200 mls/hr IV ONETIME ONE Stop: 04/30/20 19:42 Last Admin: 04/30/20 19:23 Dose: 200 mls/hr Levothyroxine Sodium (Levothyroxine) 25 mcg PO ONETIME ONE Stop: 04/30/20 20:40 Last Admin: 04/30/20 21:37 Dose: Not Given - Exam Quality Assessment: Supplemental Oxygen General: Alert, Oriented, Cooperative, No Acute Distress Lungs: Clear to Auscultation, Normal Respiratory Effort Cardiovascular: Irregular Rhythm, Bradycardia GI/Abdominal Exam: Soft, No Distention Extremities: Other (Both lower legs wrapped in compression dressings) Psy/Mental Status: Alert, Normal Affect Sepsis Event Note - Evaluation Sepsis Screening Result: No Definite Risk - Focused Exam Vital Signs: Vital Signs Temp Temp Pulse Resp BP Pulse Ox Pulse Ox 05/01/20 11:14 45 L 92 L 05/01/20 10:19 36.9 C 50 L 18 150/46 H 100 05/01/20 07:00 37.1 C 56 L 18 116/55 L 98 05/01/20 04:00 98.5 C H 05/01/20 03:28 36.9 C Date Exam was Performed: 05/01/20 Time Exam was Performed: 14:41 - Problem List Review Problem List Initiated/Reviewed/Updated: Yes - My Orders Last 24 Hours: My Active Orders 05/01/20 09:00 Aspirin 81 mg PO DAILY Insulin Lispro Prot/Lispro [HumaLOG Mix 75-25] 25 unit SUBCUT QAM 05/01/20 10:40 RT Aerosol Therapy [RC] ASDIRECTED 05/01/20 11:00 Albuterol/Ipratropium [DuoNeb 3.0-0.5 MG/3 ML] 3 ml NEB QIDRT 05/01/20 17:00 Insulin Lispro Prot/Lispro [HumaLOG Mix 75-25] 22 unit SUBCUT QPM - Plan Plan:: ASSESSMENT AND PLAN - Symptomatic bradycardia-secondary to sick sinus syndrome. She is chronically in atrial fibrillation. I suspect that the weakness that has been bothering her is related to the bradycardia with no other obvious cause. Atenolol is on hold. Anticipate that she will need a pacemaker but is currently being treated for an infection. -Continue cardiac monitoring -Continue to hold atenolol -Consider pacemaker placement after treatment for her lower extremity infection Chronic lower extremity ulceration-currently receiving outpatient wound care as well as IV antibiotics. This appears to be healing. She will complete her antibiotics in a few days. -Continue outpatient antibiotics -Outpatient follow-up Oxygen dependent COPD-Stable. -Continue home medications Insulin-dependent diabetes mellitus-sugars acceptable so far. -Continue home medications Maintenance issues - - DVT prophylaxis -enoxaparin - GI prophylaxis -not indicated - Nutrition -diabetic - Ramos catheter -not indicated Disposition -I would anticipate discharge home after the hospital stay Lyndon Choi M.D.
[2020-05-01] MEDS ORDERED: [UNRECOGNIZED DRUG - OTHER] SQ SCH (17:00)
[2020-05-01] MEDS: Ertapenem 1 GM in Sodium Chloride 0.9% 100 ML IV SCH (19:58)
[2020-05-01] MEDS: Simvastatin 20 MG Tab PO SCH (20:53)
[2020-05-02] MEDS: Albuterol/Ipratropium 3.0-0.5 MG/3 ML Neb Soln NEB SCH ×4 (07:12→22:24)
[2020-05-02] MEDS: Levothyroxine 100 MCG Tab PO SCH (07:48)
[2020-05-02] MEDS: Enoxaparin 30 MG/0.3 ML Syringe SUBCUT SCH (08:46)
[2020-05-02] MEDS: Aspirin 81 MG Tab.Chew PO SCH (08:46)
[2020-05-02] MEDS: Furosemide 40 MG Tab PO SCH (08:47)
[2020-05-02] MEDS: Insulin Lispro Protamine/Lispro 75-25 100 Units/ML 10 ML Vial SUBCUT SCH ×2 (08:47→18:00)
--- NOTE | 2020-05-02 09:23 | PCM.PN ---
- General Info Date of Service: 05/02/20 Subjective Update: No acute events overnight. She is still weak but otherwise feeling better. Heart rate has improved and is in the upper 50s, 60s and some low 70s. Shortness of breath is at baseline. She is stable on 2 L of supplemental oxygen which is less than her usual requirement. No fevers. Functional Status: Reports: Pain Controlled, Tolerating Diet - Review of Systems General: Reports: Weakness - Patient Data Vitals - Most Recent: Last Vital Signs Temp 37.0 C 05/02/20 07:00 Pulse 56 L 05/02/20 07:12 Resp 18 05/02/20 07:00 BP 153/68 H 05/02/20 07:00 Pulse Ox 95 05/02/20 07:00 Weight - Most Recent: 111.811 kg I&O - Last 24 Hours: Intake & Output 05/01/20 05/02/20 05/02/20 22:59 06:59 14:59 Intake Total 200 Output Total 500 Balance -300 Med Orders - Current: Current Medications Acetaminophen (Tylenol) 650 mg PO Q4H PRN PRN Reason: Pain (Mild 1-3)/fever Last Admin: 05/01/20 01:57 Dose: 650 mg Albuterol (Proventil Neb Soln) 2.5 mg NEB Q4H PRN PRN Reason: Shortness Of Breath/wheezing Last Admin: 05/01/20 01:26 Dose: 2.5 mg Albuterol/Ipratropium (Duoneb 3.0-0.5 Mg/3 Ml) 3 ml NEB QIDRT [facility] Last Admin: 05/02/20 07:12 Dose: 3 ml Aspirin (Aspirin) 81 mg PO DAILY [facility] Last Admin: 05/02/20 08:46 Dose: 81 mg Enoxaparin Sodium (Lovenox) 30 mg SUBCUT DAILY [facility] Last Admin: 05/02/20 08:46 Dose: 30 mg Furosemide (Lasix) 40 mg PO DAILY [facility] Last Admin: 05/02/20 08:47 Dose: 40 mg Hydroxyzine HCl (Vistaril) 100 mg IM Q6H PRN PRN Reason: Nausea/Vomiting Promethazine HCl 6.25 mg/ (Sodium Chloride) 50.25 mls @ 200 mls/hr IV Q6H PRN PRN Reason: Nausea/Vomiting Ertapenem 1 gm/ Sodium (Chloride) 100 mls @ 200 mls/hr IV Q24H [facility] Last Admin: 05/01/20 19:58 Dose: 200 mls/hr Insulin Lispro Protam/Lispro Human (Humalog Mix 75-25) 22 unit SUBCUT QPM [facility] Last Admin: 05/01/20 18:26 Dose: 22 units Insulin Lispro Protam/Lispro Human (Humalog Mix 75-25) 25 unit SUBCUT QAM [facility] Last Admin: 05/02/20 08:47 Dose: 25 units Levothyroxine Sodium (Synthroid) 100 mcg PO ACBREAKFAST [facility] Last Admin: 05/02/20 07:48 Dose: 100 mcg Lisinopril (Prinivil) 40 mg PO DAILY [facility] Last Admin: 05/01/20 11:53 Dose: Not Given Morphine Sulfate (Morphine) 2 mg IVPUSH Q2H PRN PRN Reason: Pain (severe 7-10) Ondansetron HCl (Zofran Odt) 4 mg PO Q6H PRN PRN Reason: Nausea able to take PO Oxycodone HCl (Oxycodone) 5 mg PO Q4H PRN PRN Reason: Pain (moderate 4-6) Simvastatin (Zocor) 80 mg PO BEDTIME [facility] Last Admin: 05/01/20 20:53 Dose: 80 mg Discontinued Medications Ertapenem 1 gm/ Sodium (Chloride) 100 mls @ 200 mls/hr IV ONETIME ONE Stop: 04/30/20 19:42 Last Admin: 04/30/20 19:23 Dose: 200 mls/hr Levothyroxine Sodium (Levothyroxine) 25 mcg PO ONETIME ONE Stop: 04/30/20 20:40 Last Admin: 04/30/20 21:37 Dose: Not Given - Exam Quality Assessment: Supplemental Oxygen General: Alert, Oriented, Cooperative, No Acute Distress Lungs: Normal Respiratory Effort GI/Abdominal Exam: Soft, No Distention Extremities: No Pedal Edema Skin: Warm, Dry Psy/Mental Status: Alert, Normal Affect Sepsis Event Note - Evaluation Sepsis Screening Result: No Definite Risk - Focused Exam Vital Signs: Vital Signs Temp Pulse Resp BP Pulse Ox 05/02/20 07:12 56 L 05/02/20 07:00 37.0 C 65 18 153/68 H 95 05/02/20 03:21 36.6 C 62 18 139/65 95 05/02/20 01:35 93 L 05/01/20 22:30 37.1 C 59 L 24 H 141/52 H 95 Date Exam was Performed: 05/02/20 Time Exam was Performed: 10:31 - Problem List Review Problem List Initiated/Reviewed/Updated: Yes - My Orders Last 24 Hours: My Active Orders 05/01/20 09:00 Aspirin 81 mg PO DAILY Insulin Lispro Prot/Lispro [HumaLOG Mix 75-25] 25 unit SUBCUT QAM 05/01/20 10:40 RT Aerosol Therapy [RC] ASDIRECTED 05/01/20 11:00 Albuterol/Ipratropium [DuoNeb 3.0-0.5 MG/3 ML] 3 ml NEB QIDRT 05/01/20 17:00 Insulin Lispro Prot/Lispro [HumaLOG Mix 75-25] 22 unit SUBCUT QPM 05/02/20 09:21 PT Evaluation and Treatment [CONS] Routine 05/02/20 09:22 Communication Order [RC] ROUTINE 05/02/20 17:00 GLUCOSE POC LAB TO COLLECT [POC] BIDAC 05/03/20 08:00 GLUCOSE POC LAB TO COLLECT [POC] BIDAC 05/03/20 17:00 GLUCOSE POC LAB TO COLLECT [POC] BIDAC 05/04/20 08:00 GLUCOSE POC LAB TO COLLECT [POC] BIDAC 05/04/20 17:00 GLUCOSE POC LAB TO COLLECT [POC] BIDAC 05/05/20 08:00 GLUCOSE POC LAB TO COLLECT [POC] BIDAC 05/05/20 17:00 GLUCOSE POC LAB TO COLLECT [POC] BIDAC 05/06/20 08:00 GLUCOSE POC LAB TO COLLECT [POC] BIDAC 05/06/20 17:00 GLUCOSE POC LAB TO COLLECT [POC] BIDAC 05/07/20 08:00 GLUCOSE POC LAB TO COLLECT [POC] BIDAC 05/07/20 17:00 GLUCOSE POC LAB TO COLLECT [POC] BIDAC 05/08/20 08:00 GLUCOSE POC LAB TO COLLECT [POC] BIDAC - Plan Plan:: ASSESSMENT AND PLAN - Symptomatic bradycardia-secondary to sick sinus syndrome. She is chronically in atrial fibrillation. Weak but otherwise doing fairly well. Heart rate has improved with stopping the atenolol. -Continue cardiac monitoring -Permanently discontinue atenolol -Consider low-dose metoprolol if additional rate control as needed -Consider pacemaker placement after treatment for her lower extremity infection if bradycardia and weakness persist Chronic lower extremity ulceration-currently receiving outpatient wound care as well as IV antibiotics. This appears to be healing. She will complete her antibiotics after tomorrow's dose -Continue outpatient antibiotics -Outpatient follow-up Oxygen dependent COPD-Stable. -Continue home medications Insulin-dependent diabetes mellitus-sugars acceptable so far. -Continue home medications Maintenance issues - - DVT prophylaxis -enoxaparin - GI prophylaxis -not indicated - Nutrition -diabetic - Ramos catheter -not indicated Disposition -I would anticipate discharge home with home care after the hospital stay Lyndon Choi M.D.
[2020-05-02] MEDS: Ertapenem 1 GM in Sodium Chloride 0.9% 100 ML IV SCH (19:36)
[2020-05-02] MEDS: Simvastatin 20 MG Tab PO SCH (21:27)
[2020-05-03] MEDS: Albuterol/Ipratropium 3.0-0.5 MG/3 ML Neb Soln NEB SCH ×4 (07:17→21:35)
[2020-05-03] MEDS: Levothyroxine 100 MCG Tab PO SCH (07:44)
[2020-05-03] MEDS: Lisinopril 20 MG Tab PO SCH (08:58)
[2020-05-03] MEDS: Enoxaparin 30 MG/0.3 ML Syringe SUBCUT SCH (08:58)
[2020-05-03] MEDS: Furosemide 40 MG Tab PO SCH (08:58)
[2020-05-03] MEDS: Aspirin 81 MG Tab.Chew PO SCH (08:58)
[2020-05-03] MEDS: Insulin Lispro Protamine/Lispro 75-25 100 Units/ML 10 ML Vial SUBCUT SCH ×2 (08:59→17:26)
--- NOTE | 2020-05-03 11:27 | PCM.PN ---
- General Info Date of Service: 05/03/20 Subjective Update: No acute events overnight. Heart rate has been good in the 60s and 70s. No complaints of shortness of breath. She does still feel weak though she is moving better today. She had her first round of physical therapy today and when she is standing she moves okay but has difficulty rising from the bed or from the chair. She does not feel strong enough to be safe at home but is hopeful that with little more therapy she will be. No fevers. Blood pressure has been normal. Functional Status: Reports: Pain Controlled, Tolerating Diet - Review of Systems General: Reports: Weakness - Patient Data Vitals - Most Recent: Last Vital Signs Temp 35.5 C L 05/03/20 11:00 Pulse 85 05/03/20 11:00 Resp 16 05/03/20 11:00 BP 146/54 H 05/03/20 11:00 Pulse Ox 93 L 05/03/20 11:00 Weight - Most Recent: 111.811 kg I&O - Last 24 Hours: Intake & Output 05/02/20 05/03/20 05/03/20 22:59 06:59 14:59 Intake Total 740 200 200 Balance 740 200 200 Med Orders - Current: Current Medications Acetaminophen (Tylenol) 650 mg PO Q4H PRN PRN Reason: Pain (Mild 1-3)/fever Last Admin: 05/01/20 01:57 Dose: 650 mg Documented by: Albuterol (Proventil Neb Soln) 2.5 mg NEB Q4H PRN PRN Reason: Shortness Of Breath/wheezing Last Admin: 05/01/20 01:26 Dose: 2.5 mg Documented by: Albuterol/Ipratropium (Duoneb 3.0-0.5 Mg/3 Ml) 3 ml NEB QIDRT [facility] Last Admin: 05/03/20 10:48 Dose: 3 ml Documented by: Aspirin (Aspirin) 81 mg PO DAILY [facility] Last Admin: 05/03/20 08:58 Dose: 81 mg Documented by: Enoxaparin Sodium (Lovenox) 30 mg SUBCUT DAILY [facility] Last Admin: 05/03/20 08:58 Dose: 30 mg Documented by: Furosemide (Lasix) 40 mg PO DAILY [facility] Last Admin: 05/03/20 08:58 Dose: 40 mg Documented by: Hydroxyzine HCl (Vistaril) 100 mg IM Q6H PRN PRN Reason: Nausea/Vomiting Promethazine HCl 6.25 mg/ (Sodium Chloride) 50.25 mls @ 200 mls/hr IV Q6H PRN PRN Reason: Nausea/Vomiting Ertapenem 1 gm/ Sodium (Chloride) 100 mls @ 200 mls/hr IV Q24H [facility] Last Admin: 05/02/20 19:36 Dose: 200 mls/hr Documented by: Insulin Lispro Protam/Lispro Human (Humalog Mix 75-25) 22 unit SUBCUT QPM [facility] Last Admin: 05/02/20 18:00 Dose: 22 units Documented by: Insulin Lispro Protam/Lispro Human (Humalog Mix 75-25) 25 unit SUBCUT QAM [facility] Last Admin: 05/03/20 08:59 Dose: 25 units Documented by: Levothyroxine Sodium (Synthroid) 100 mcg PO ACBREAKFAST [facility] Last Admin: 05/03/20 07:44 Dose: 100 mcg Documented by: Lisinopril (Prinivil) 40 mg PO DAILY [facility] Last Admin: 05/03/20 08:58 Dose: 40 mg Documented by: Morphine Sulfate (Morphine) 2 mg IVPUSH Q2H PRN PRN Reason: Pain (severe 7-10) Ondansetron HCl (Zofran Odt) 4 mg PO Q6H PRN PRN Reason: Nausea able to take PO Oxycodone HCl (Oxycodone) 5 mg PO Q4H PRN PRN Reason: Pain (moderate 4-6) Simvastatin (Zocor) 80 mg PO BEDTIME [facility] Last Admin: 05/02/20 21:27 Dose: 80 mg Documented by: Discontinued Medications Ertapenem 1 gm/ Sodium (Chloride) 100 mls @ 200 mls/hr IV ONETIME ONE Stop: 04/30/20 19:42 Last Admin: 04/30/20 19:23 Dose: 200 mls/hr Documented by: Levothyroxine Sodium (Levothyroxine) 25 mcg PO ONETIME ONE Stop: 04/30/20 20:40 Last Admin: 04/30/20 21:37 Dose: Not Given Documented by: - Exam Quality Assessment: Supplemental Oxygen General: Alert, Oriented, Cooperative, No Acute Distress Lungs: Normal Respiratory Effort Cardiovascular: Regular Rate, Irregular Rhythm GI/Abdominal Exam: Soft, No Distention Extremities: No Pedal Edema Skin: Warm, Dry, Other (small blister right upper gluteal cleft and ruptured blister left gluteal cleft ) Psy/Mental Status: Alert, Normal Affect Sepsis Event Note - Evaluation Sepsis Screening Result: No Definite Risk - Focused Exam Vital Signs: Vital Signs Temp Pulse Resp BP BP Pulse Ox Pulse Ox 05/03/20 11:00 35.5 C L 85 16 146/54 H 93 L 05/03/20 10:48 78 97 05/03/20 08:58 167/79 H 05/03/20 08:18 60 100 05/03/20 07:00 36.6 C 65 16 167/79 H 97 05/03/20 03:00 37.1 C 63 18 126/41 L 96 Date Exam was Performed: 05/03/20 Time Exam was Performed: 15:07 - Problem List Review Problem List Initiated/Reviewed/Updated: Yes - My Orders Last 24 Hours: My Active Orders 05/03/20 17:00 GLUCOSE POC LAB TO COLLECT [POC] BIDAC 05/04/20 08:00 GLUCOSE POC LAB TO COLLECT [POC] BIDAC 05/04/20 17:00 GLUCOSE POC LAB TO COLLECT [POC] BIDAC 05/05/20 08:00 GLUCOSE POC LAB TO COLLECT [POC] BIDAC 05/05/20 17:00 GLUCOSE POC LAB TO COLLECT [POC] BIDAC 05/06/20 08:00 GLUCOSE POC LAB TO COLLECT [POC] BIDAC 05/06/20 17:00 GLUCOSE POC LAB TO COLLECT [POC] BIDAC 05/07/20 08:00 GLUCOSE POC LAB TO COLLECT [POC] BIDAC 05/07/20 17:00 GLUCOSE POC LAB TO COLLECT [POC] BIDAC 05/08/20 08:00 GLUCOSE POC LAB TO COLLECT [POC] BIDAC - Plan Plan:: ASSESSMENT AND PLAN - Symptomatic bradycardia-secondary to sick sinus syndrome. She is chronically in atrial fibrillation. Heart rate is in the 60s and 70s since atenolol was stopped. No strong indication for pacemaker at this time. -discontinue cardiac monitoring -Permanently discontinue atenolol -Consider low-dose metoprolol if additional rate control as needed -Consider pacemaker placement after treatment for her lower extremity infection if bradycardia and weakness persist Chronic lower extremity ulceration-currently receiving outpatient wound care as well as IV antibiotics. This appears to be healing. She will complete her antibiotics after today's dose. -Continue outpatient antibiotics -Outpatient follow-up -Follow-up with Dr. Teixeira tomorrow afternoon Oxygen dependent COPD-Stable. -Continue home medications Insulin-dependent diabetes mellitus-sugars acceptable so far. -Continue home medications Maintenance issues - - DVT prophylaxis -enoxaparin - GI prophylaxis -not indicated - Nutrition -diabetic - Ramos catheter -not indicated Disposition -I would anticipate discharge home with home care after the hospital stay Lyndon Choi M.D.
[2020-05-03] MEDS ORDERED: Alteplase 2 MG Vial IVPUSH ONE (13:08)
[2020-05-03] MEDS: Ertapenem 1 GM in Sodium Chloride 0.9% 100 ML IV SCH (19:22)
[2020-05-03] MEDS: Simvastatin 20 MG Tab PO SCH (21:35)
[2020-05-04] MEDS: Albuterol/Ipratropium 3.0-0.5 MG/3 ML Neb Soln NEB SCH ×3 (07:18→14:34)
[2020-05-04] MEDS: Levothyroxine 100 MCG Tab PO SCH (07:32)
[2020-05-04] MEDS: Furosemide 40 MG Tab PO SCH (08:25)
[2020-05-04] MEDS: Lisinopril 20 MG Tab PO SCH (08:26)
[2020-05-04] MEDS: Aspirin 81 MG Tab.Chew PO SCH (08:26)
[2020-05-04] MEDS: Insulin Lispro Protamine/Lispro 75-25 100 Units/ML 10 ML Vial SUBCUT SCH (08:27)
[2020-05-04] MEDS: Enoxaparin 30 MG/0.3 ML Syringe SUBCUT SCH (08:27)
--- NOTE | 2020-05-04 10:22 | PCM.DCSUM1 ---
Discharge Summary - Hospital Course Brief History: 84-year-old female with chronic atrial fibrillation, insulin-dependent diabetes mellitus and a lower extremity ulceration currently on IV antibiotics who presented with progressive weakness and several falls at home. She was admitted for management of symptomatic bradycardia. Diagnosis: Stroke: No - Discharge Data Discharge Date: 05/04/20 Discharge Disposition: Home, W Home Health Agency 06 Condition: Good - Referral to Home Health Date of Face to Face Encounter: 05/04/20 Reason for Homebound Status: Acute on chronic weakness secondary to symptomatic bradycardia Primary Care Physician: PCP None Skilled Need: Nursing to monitor heart rate and lower extremity wounds. Physical therapy to improve strength and endurance - Discharge Diagnosis/Problem(s) (1) Symptomatic bradycardia SNOMED Code(s): 47261829, 733534908 ICD Code: R00.1 - BRADYCARDIA, UNSPECIFIED Status: Acute Current Visit: Yes (2) Chronic atrial fibrillation SNOMED Code(s): 452774868 ICD Code: I48.20 - CHRONIC ATRIAL FIBRILLATION, UNSPECIFIED Status: Chronic Current Visit: Yes (3) Diabetes type 2, controlled SNOMED Code(s): 53188543, 066767778 ICD Code: E11.9 - TYPE 2 DIABETES MELLITUS WITHOUT COMPLICATIONS Status: Chronic Current Visit: No Onset Date: Unknown Problem Details: Will continue patient's 70/30 insulin for T2DM at 25u nightly Qualifiers: Diabetes mellitus shelter insulin use: unspecified shelter insulin use status Diabetes mellitus complication status: with unspecified complications Qualified Code(s): E11.8 - Type 2 diabetes mellitus with unspecified complications (4) Stasis ulcer of left lower extremity SNOMED Code(s): 414048066 ICD Code: I83.029 - VARICOSE VEINS OF LEFT LOWER EXTREMITY W ULCER OF UNSP SITE; L97.929 - NON-PRS CHRONIC ULC UNSP PRT OF L LOW LEG W UNSP SEVERITY Status: Acute Current Visit: No Onset Date: Unknown Problem Details: - Patient Summary/Data Consults: Consultations 05/02/20 09:21 PT Evaluation and Treatment [CONS] Routine Please Evaluate and Treat. PT Reason for Consult: Strengthening This query below is only for informational purposes and is not editable. Admission Diagnosis/Problem: Bradycardia Hospital Course: Manjula presented to the emergency room with weakness and several falls at home. Work-up in the emergency room revealed reassuring laboratory studies but her heart rate was noted to be in the 40s and sometimes dropped even below 30. She was admitted to the hospital for management of symptomatic bradycardia. She had been on atenolol as an outpatient and this medication was discontinued. Over the first 24 hours or so during the hospital stay there was concern that she may need pacemaker with persistent bradycardia. I did talk to Dr. Teixeira who is managing her lower extremity ulcers that are currently being treated with IV antibiotics and he felt that it was not safe to do a pacemaker if needed because of the concern for active infection and potential for complications. Over the second 24 hours fortunately we saw an improvement in her heart rate. Her average heart rate has been in the 60s and lower 70s. Symptomatically she is feeling much better now that she is off of the atenolol. Her strength is steadily been improving. She did work with physical therapy during the course of the hospital stay and has made some strides with her strength. Vital signs have all been stable including her heart rate. At this point there is no indication for a pacemaker but one may be necessary down the road if she has additional difficulties with bradycardia. She has completed her first round of antibiotics for the lower extremity ulceration. She was seen by Dr. Teixeira of the wound care team prior to hospital discharge. She will be following up with her primary care and with Dr. Teixeira next week. Atenolol has been completely discontinued at this time. She is otherwise doing well. She was interested in home care to help ease her transition home. - Patient Instructions Diet: Diabetic Diet Activity: As Tolerated Showering/Bathing: May Shower Notify Provider of: Fever, Increased Pain Other/Special Instructions: 1. You were in the hospital for management of symptomatic bradycardia. Your heart rate has improved with stopping atenolol. Initially there was some concern that she may need a pacemaker but fortunately your heart rate has improved to the point that you do not need a device at this time. I would recommend permanently discontinuing the atenolol. If your heart rate does rise above where it is now and we need to use a medication to slow down your heart rate I would recommend a very low-dose metoprolol. If your heart rate drops and stays below 60 or if you have persistent weakness or fainting we may need to consider a pacemaker. 2. Continue your other home medications as previously prescribed. 3. I have placed a referral to home health care. They will provide nursing and physical therapy services to help e ase your transition home. - Discharge Plan *PRESCRIPTION DRUG MONITORING PROGRAM REVIEWED*: Not Applicable *COPY OF PRESCRIPTION DRUG MONITORING REPORT IN PATIENT MARTINEZ: Not Applicable Home Medications: Home Meds Aspirin [Children's Aspirin] 81 mg PO DAILY 04/20/20 [History] Furosemide 40 mg PO BID 04/20/20 [History] Insuln Asp Prot/Insulin Aspart [NovoLOG Mix 70-30] 22 units SQ QPM 04/20/20 [History] Insuln Asp Prot/Insulin Aspart [NovoLOG Mix 70-30] 25 units SQ QAM 04/20/20 [History] Levothyroxine Sodium [Synthroid] 125 mcg PO DAILY 04/20/20 [History] Simvastatin 80 mg PO DAILY 04/20/20 [History] lisinopriL [Lisinopril] 40 mg PO DAILY 04/20/20 [History] Oxygen Therapy Mode: Room Air Patient Handouts: Bradycardia, Adult Referrals: Jordan Milton NP [Nurse Practitioner] - 05/11/20 1:00 pm (1 [id number] hospital stay for symptomatic bradycardia) Guilherme Teixeira MD [Physician] - 05/11/20 10:20 am - Discharge Summary/Plan Comment DC Time >30 min.: Yes (40-coordinating home care ) - Patient Data Vitals - Most Recent: Last Vital Signs Temp 36.8 C 05/04/20 07:00 Pulse 57 L 05/04/20 07:19 Resp 16 05/04/20 07:00 BP 150/61 H 05/04/20 08:26 Pulse Ox 97 05/04/20 07:19 Weight - Most Recent: 111.811 kg I&O - Last 24 hours: Intake & Output 05/03/20 05/04/20 05/04/20 22:59 06:59 14:59 Intake Total 1120 Output Total 400 Balance 720 Med Orders - Current: Current Medications Acetaminophen (Tylenol) 650 mg PO Q4H PRN PRN Reason: Pain (Mild 1-3)/fever Last Admin: 05/01/20 01:57 Dose: 650 mg Documented by: Albuterol (Proventil Neb Soln) 2.5 mg NEB Q4H PRN PRN Reason: Shortness Of Breath/wheezing Last Admin: 05/01/20 01:26 Dose: 2.5 mg Documented by: Albuterol/Ipratropium (Duoneb 3.0-0.5 Mg/3 Ml) 3 ml NEB QIDRT [facility] Last Admin: 05/04/20 07:18 Dose: 3 ml Documented by: Aspirin (Aspirin) 81 mg PO DAILY [facility] Last Admin: 05/04/20 08:26 Dose: 81 mg Documented by: Enoxaparin Sodium (Lovenox) 30 mg SUBCUT DAILY [facility] Last Admin: 05/04/20 08:27 Dose: 30 mg Documented by: Furosemide (Lasix) 40 mg PO DAILY [facility] Last Admin: 05/04/20 08:25 Dose: 40 mg Documented by: Hydroxyzine HCl (Vistaril) 100 mg IM Q6H PRN PRN Reason: Nausea/Vomiting Promethazine HCl 6.25 mg/ (Sodium Chloride) 50.25 mls @ 200 mls/hr IV Q6H PRN PRN Reason: Nausea/Vomiting Ertapenem 1 gm/ Sodium (Chloride) 100 mls @ 200 mls/hr IV Q24H [facility] Last Admin: 05/03/20 19:22 Dose: 200 mls/hr Documented by: Insulin Lispro Protam/Lispro Human (Humalog Mix 75-25) 22 unit SUBCUT QPM [facility] Last Admin: 05/03/20 17:26 Dose: 22 units Documented by: Insulin Lispro Protam/Lispro Human (Humalog Mix 75-25) 25 unit SUBCUT QAM [facility] Last Admin: 05/04/20 08:27 Dose: 25 units Documented by: Levothyroxine Sodium (Synthroid) 100 mcg PO ACBREAKFAST [facility] Last Admin: 05/04/20 07:32 Dose: 100 mcg Documented by: Lisinopril (Prinivil) 40 mg PO DAILY [facility] Last Admin: 05/04/20 08:26 Dose: 40 mg Documented by: Morphine Sulfate (Morphine) 2 mg IVPUSH Q2H PRN PRN Reason: Pain (severe 7-10) Ondansetron HCl (Zofran Odt) 4 mg PO Q6H PRN PRN Reason: Nausea able to take PO Oxycodone HCl (Oxycodone) 5 mg PO Q4H PRN PRN Reason: Pain (moderate 4-6) Simvastatin (Zocor) 80 mg PO BEDTIME [facility] Last Admin: 05/03/20 21:35 Dose: 80 mg Documented by: Discontinued Medications Alteplase, Recombinant (Cathflo Activase) 2 mg IVPUSH ONETIME ONE Stop: 05/03/20 13:09 Last Admin: 05/03/20 13:21 Dose: 2 mg Documented by: Ertapenem 1 gm/ Sodium (Chloride) 100 mls @ 200 mls/hr IV ONETIME ONE Stop: 04/30/20 19:42 Last Admin: 04/30/20 19:23 Dose: 200 mls/hr Documented by: Levothyroxine Sodium (Levothyroxine) 25 mcg PO ONETIME ONE Stop: 04/30/20 20:40 Last Admin: 04/30/20 21:37 Dose: Not Given Documented by: *Q Meaningful Use (DIS) - VTE *Q VTE Mechanical Contraindications *Q: At Risk for Falls
--- NOTE | 2020-05-05 20:08 | CONS ---
DATE OF SERVICE: 05/04/2020 REFERRING PHYSICIAN: Lyndon Choi MD CONSULTING PHYSICIAN: Guilherme Teixeira MD REASON FOR EVALUATION: Left leg wound. 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 This has been ongoing for months and has been treated with compression wrapping previously. At present, her pain is 1 to 2/10. This is further compounded by her second problem, which is the patient has been feeling weak and dizzy. She had a fall on Friday and Friday nights. She is having ongoing issues with this, which looks to be consistent with bradycardia but it is being also managed by the Medicine Service. PAST MEDICAL HISTORY: Chronic wounds, type 2 diabetes, hypothyroidism, stage 3 renal disease, sleep apnea, hypertension, and cataracts. SOCIAL HISTORY: She does not smoke. FAMILY HISTORY: Noncontributory. REVIEW OF SYSTEMS: GENERAL: The patient has weakness, fatigue, and dizziness as described above. ENT: Dizziness. CARDIOVASCULAR: Reported bradycardia during this hospitalization. RESPIRATORY: No shortness of breath. GASTROINTESTINAL: Noncontributory. GENITOURINARY: No symptoms. MUSCULOSKELETAL: Chronic leg wounds. SKIN: Chronic leg wounds. Also bruising noted on part of the right face. PSYCHIATRIC: No gross abnormalities. NEUROLOGICAL: No gross abnormalities. The remainder of systems is reviewed and is negative. PHYSICAL EXAMINATION: VITAL SIGNS: Temperature 97.5, blood pressure 173/80, and pulse 55. HEENT: Pupils are equal. NECK: Supple. LUNGS: Clear. CARDIOVASCULAR: Regular rhythm and rate. ABDOMEN: Bowel sounds are positive. MUSCULOSKELETAL: Lower extremities, left leg has good range of motion. SKIN: Shows a noninfected ulcer of approximately 3 cm x 4 cm, left lower leg. LABORATORY RESULTS: Show normal white blood cell count. Creatinine is 1.1. Total bilirubin was also 1.1. IMAGING DATA: I did review this, which the patient did undergo a chest x-ray which showed some mild pulmonary hypertension. She also had a head CT among other CTs but no significant abnormalities. ASSESSMENT: Venous ulcer. PLAN: Continue compression wrapping to be changed every 5 days with a three-layered stage dressing including Border Lite and Coban 2 type systems. As far as pacemaker requirement, this is not required at this time as the patient is not symptomatic enough. Guilherme Teixeira MD /[id number]
== END 2020-05-04 16:35 | disposition home health service (06) | DRG 309 ==
LOC: JP.ED 18:06 → JP.MS 20:12
PROVIDERS: ADMIT Family Medicine; ATTEND Internal Medicine
DX: R53.1 Weakness (principal); I48.91 Unspecified atrial fibrillation; R00.1 Bradycardia, unspecified; Z91.81 History of falling; I10 Essential (primary) hypertension; I49.5 Sick sinus syndrome; I48.20 Chronic atrial fibrillation, unspecified; I83.028 Varicose veins of left lower extremity with ulcer other part of lower leg; G47.30 Sleep apnea, unspecified; E03.9 Hypothyroidism, unspecified; Z85.42 Personal history of malignant neoplasm of other parts of uterus; Z98.49 Cataract extraction status, unspecified eye; E78.2 Mixed hyperlipidemia; J44.9 Chronic obstructive pulmonary disease, unspecified; I12.9 Hypertensive chronic kidney disease with stage 1 through stage 4 chronic kidney disease, or unspecified chronic kidney disease; E11.22 Type 2 diabetes mellitus with diabetic chronic kidney disease; N18.3 Chronic kidney disease, stage 3 (moderate); Z79.4 Long term (current) use of insulin; Z79.01 Long term (current) use of anticoagulants; Z90.710 Acquired absence of both cervix and uterus; Z79.82 Long term (current) use of aspirin; Z79.890 Hormone replacement therapy; Z79.899 Other long term (current) drug therapy; Z91.030 Bee allergy status; Z88.2 Allergy status to sulfonamides; S05.11XD Contusion of eyeball and orbital tissues, right eye, subsequent encounter; Z99.81 Dependence on supplemental oxygen
CPT/HCPCS: 36415; 71045 ×2; 80053; 83735; 84443; 84484; 85027; 93005; 93010; 96365; 99285; J1335; J7050; 82962; 85025; 94640; 94762; 97161-GP; 97530-GP; A9270-GY; J1650; J1815-GY; J2997; J7620-GY

== ENCOUNTER 2020-05-05 09:11 | Emergency (ER) | payer MEDICARE, OTHER ==
--- NOTE | 2020-05-05 09:56 | EDM.PDOC ---
ED HPI GENERAL MEDICAL PROBLEM - General Chief Complaint: General Stated Complaint: FALL VIA NORTH Time Seen by Provider: 05/05/20 09:53 Source of Information: Reports: Patient, RN Notes Reviewed History Limitations: Reports: No Limitations - History of Present Illness INITIAL COMMENTS - FREE TEXT/NARRATIVE: 84-year-old female presents emergency department today via EMS services for fall at home. She has been in and out of the emergency department multiple times has been hospitalized was discharged yesterday for symptomatic bradycardia. Her beta-blockers have been stopped she is not a candidate for pacemaker implantation because of ongoing wound infection at this time. For this particular event she states she was going up the stairs felt her left knee just gave out on her and she fell predominantly on her left side is complaining of left knee and left hip pain at this time, no shortness of breath no syncope no chest pain Left Lower Back Pain Score (Numeric/FACES): 1 - Related Data Allergies Allergy/AdvReac Type Severity Reaction Status Date / Time bee venom protein (honey bee) Allergy Severe Anaphylactic Verified 05/05/20 09:23 Shock Sulfa (Sulfonamide Allergy Hives Verified 05/05/20 09:23 Antibiotics) Home Meds: Home Meds Aspirin [Children's Aspirin] 81 mg PO DAILY 04/20/20 [History] Furosemide 40 mg PO BID 04/20/20 [History] Insuln Asp Prot/Insulin Aspart [NovoLOG Mix 70-30] 22 units SQ QPM 04/20/20 [History] Insuln Asp Prot/Insulin Aspart [NovoLOG Mix 70-30] 25 units SQ QAM 04/20/20 [History] Levothyroxine Sodium [Synthroid] 125 mcg PO DAILY 04/20/20 [History] Simvastatin 80 mg PO DAILY 04/20/20 [History] lisinopriL [Lisinopril] 40 mg PO DAILY 04/20/20 [History] Past Medical History HEENT History: Reports: Cataract Cardiovascular History: Reports: Arrhythmia (Symptomatic bradycardia), Hypertension Respiratory History: Reports: Sleep Apnea Other Respiratory History: Cpap at home Genitourinary History: Reports: Renal Disease, Other (See Below) Other Genitourinary History: Stage 3 kidney disease Musculoskeletal History: Reports: Arthritis, Other (See Below) Other Musculoskeletal History: neck fx Neurological History: Reports: Concussion Endocrine/Metabolic History: Reports: Diabetes, Type II, Hypothyroidism Hematologic History: Reports: Anticoagulation Therapy Oncologic (Cancer) History: Reports: Uterine Dermatologic History: Reports: Other (See Below) Other Dermatologic History: Venous ulcer left leg - Infectious Disease History Infectious Disease History: Reports: Chicken Pox, Measles, Mumps - Past Surgical History HEENT Surgical History: Reports: Cataract Surgery, Tonsillectomy Female Surgical History: Reports: Hysterectomy Social & Family History - Family History Family Medical History: Noncontributory - Tobacco Use Smoking Status *Q: Never Smoker Second Hand Smoke Exposure: No - Caffeine Use Caffeine Use: Reports: Coffee, Soda, Tea - Alcohol Use Days Per Week of Alcohol Use: 0 - Recreational Drug Use Recreational Drug Use: No ED ROS GENERAL - Review of Systems Review Of Systems: See Below Constitutional: Reports: No Symptoms Respiratory: Reports: No Symptoms Cardiovascular: Reports: No Symptoms GI/Abdominal: Reports: No Symptoms Musculoskeletal: Reports: Leg Pain, Joint Pain (Knee and hip pain on the left side) Skin: Reports: Bruising ED EXAM, GENERAL - Physical Exam Exam: See Below Free Text/Narrative:: Examination of the left knee I do appreciate some bruising below the knee however this is not new she is tender to the touch on the medial aspect with palpitation however good range of motion of the knee examination of the hip she is tender to the touch over palpation of the greater trochanter however no tenderness with flexion extension or rotation of the hip pelvic rocks is negative Exam Limited By: No Limitations General Appearance: Alert, WD/WN, No Apparent Distress Respiratory/Chest: No Respiratory Distress Course - Vital Signs Last Recorded V/S: Last Vital Signs Temp 97.5 F 05/05/20 09:40 Pulse 52 L 05/05/20 11:27 Resp 12 05/05/20 09:40 BP 166/79 H 05/05/20 11:27 Pulse Ox 98 05/05/20 11:27 Departure - Departure Time of Disposition: 11:50 Disposition: Home, Self-Care 01 Condition: Fair Clinical Impression: Contusion Qualifiers: Encounter type: initial encounter Contusion area: hip Laterality: left Qualified Code(s): S70.02XA - Contusion of left hip, initial encounter Knee contusion Qualifiers: Encounter type: initial encounter Laterality: left Qualified Code(s): S80.02XA - Contusion of left knee, initial encounter - Discharge Information Instructions: Contusion, [id number] Referrals: PCP,None [Primary Care Provider] - Forms: ED Department Discharge Additional Instructions: Please keep your follow-up appointments with your primary care provider as well as physical therapy, call or return to the emergency department worsening of symptoms Sepsis Event Note (ED) - Evaluation Sepsis Screening Result: No Definite Risk - Focused Exam Vital Signs: Vital Signs Temp Pulse Resp BP Pulse Ox 05/05/20 11:27 52 L 166/79 H 98 05/05/20 10:08 55 L 198/88 H 97 05/05/20 09:40 97.5 F 55 L 12 173/80 H 95 05/05/20 09:39 56 L 124/82 93 L 05/05/20 09:33 97.5 F 55 L 12 173/80 H 95 05/05/20 09:11 57 L 173/80 H 88 L - Assessment/Plan Plan: Assessment Acuity = acute Site and laterality = left knee contusion, left hip contusion Etiology = secondary to fall Manifestations = none Location of injury = Home Lab values = x-rays revealed no fracture of hip pelvis knee Plan I did review x-ray films with her she would like to try going home she does have physical therapy and home working with her from her prior hospitalization keep her regular follow-up appointments with her primary care This note was dictated using [employer] voice recognition software please call with any questions on syntax or grammar.
--- NOTE | 2020-05-05 11:11 | CR ---
Knee 1V or 2V Lt, CLINICAL HISTORY: Fall, pain FINDINGS: No acute fracture or dislocation is noted. There are no osseous lesions. There is severe joint space narrowing most prominent in the medial compartment. There is significant periarticular and patellar spurring. Impression: Severe osteoarthritic change No fracture Hip Min 2V or 3V w Pelvis Lt CLINICAL HISTORY: Fall, pain FINDINGS: No acute fractures identified. There is some osteoarthritis in both hips with acetabular spurring. There is some widening of the SI joints bilaterally. This may be degenerative. IMPRESSION: No acute fracture seen Osteoarthritis Widening of the SI joints bilaterally may be degenerative. Clinical correlation necessary
== END 2020-05-05 12:31 | disposition home or self-care (01) ==
LOC: JP.ED 09:11
DX: S70.02XA Contusion of left hip, initial encounter (principal); S80.02XA Contusion of left knee, initial encounter; I12.9 Hypertensive chronic kidney disease with stage 1 through stage 4 chronic kidney disease, or unspecified chronic kidney disease; N18.3 Chronic kidney disease, stage 3 (moderate); E11.22 Type 2 diabetes mellitus with diabetic chronic kidney disease; E03.9 Hypothyroidism, unspecified; M19.90 Unspecified osteoarthritis, unspecified site; Z91.030 Bee allergy status; Z88.2 Allergy status to sulfonamides; Z79.82 Long term (current) use of aspirin; Z79.4 Long term (current) use of insulin; Z79.899 Other long term (current) drug therapy; W10.8XXA Fall (on) (from) other stairs and steps, initial encounter; Y92.009 Unspecified place in unspecified non-institutional (private) residence as the place of occurrence of the external cause
CPT/HCPCS: 73502-26-LT; 73502-LT; 73560-26-LT; 73560-LT; 99283; 99284

== ENCOUNTER 2020-05-08 14:56 | Inpatient (IN) | payer MEDICARE, OTHER ==
--- NOTE | 2020-05-08 15:50 | EDM.PDOC ---
<Bryon Mo - Last Filed: 05/08/20 19:30> ED HPI GENERAL MEDICAL PROBLEM - General Chief Complaint: General Stated Complaint: FOUND ON THE FLOOR 30 HOURS Time Seen by Provider: 05/08/20 15:50 - Related Data Allergies Allergy/AdvReac Type Severity Reaction Status Date / Time bee venom protein (honey bee) Allergy Severe Anaphylactic Verified 05/08/20 15:59 Shock Sulfa (Sulfonamide Allergy Hives Verified 05/08/20 15:59 Antibiotics) Home Meds: Home Meds Aspirin [Children's Aspirin] 81 mg PO DAILY 04/20/20 [History] Furosemide 40 mg PO BID 04/20/20 [History] Insuln Asp Prot/Insulin Aspart [NovoLOG Mix 70-30] 22 units SQ QPM 04/20/20 [History] Insuln Asp Prot/Insulin Aspart [NovoLOG Mix 70-30] 25 units SQ QAM 04/20/20 [History] Levothyroxine Sodium [Synthroid] 125 mcg PO DAILY 04/20/20 [History] Simvastatin 80 mg PO DAILY 04/20/20 [History] lisinopriL [Lisinopril] 40 mg PO DAILY 04/20/20 [History] Course - Vital Signs Text/Narrative:: Dr. Perry called @ 1935h Departure - Departure Time of Disposition: 19:40 Disposition: Refer to Observation Condition: Fair Clinical Impression: Fall in elderly patient, Weakness, Elevated TSH, Elevated blood sugar - Discharge Information *PRESCRIPTION DRUG MONITORING PROGRAM REVIEWED*: Not Applicable *COPY OF PRESCRIPTION DRUG MONITORING REPORT IN PATIENT MARTIENZ: Not Applicable <Latia Coley - Last Filed: 05/12/20 07:17> ED HPI GENERAL MEDICAL PROBLEM - General Source of Information: Reports: Patient History Limitations: Reports: No Limitations - History of Present Illness INITIAL COMMENTS - FREE TEXT/NARRATIVE: pt arrived with a history of falling forward over the walker. Her when able to ease her to the floor. She had a bad fall 3 weeks ago and ended up with fracture of the c5 pedicles. She is in a cervical collar. She does not feel she injured herself today when she fell. She had a bradiczardia earlier when she had her atenolol stopped. She does not know why she is falling so much. She does walk with a walker. Onset: Other (pt fell on the floor and did lay thre for 30 hours. ) Duration: Hour(s): Location: Reports: Generalized Associated Symptoms: Reports: Weakness, Other (pt is falling but she is not definitely passing out. ) Past Medical History HEENT History: Reports: Cataract Cardiovascular History: Reports: Arrhythmia (Symptomatic bradycardia), Hypertension Respiratory History: Reports: Sleep Apnea Other Respiratory History: Cpap at home Genitourinary History: Reports: Renal Disease, Other (See Below) Other Genitourinary History: Stage 3 kidney disease Musculoskeletal History: Reports: Arthritis, Other (See Below) Other Musculoskeletal History: neck fx Neurological History: Reports: Concussion Endocrine/Metabolic History: Reports: Diabetes, Type II, Hypothyroidism Hematologic History: Reports: Anticoagulation Therapy Oncologic (Cancer) History: Reports: Uterine Dermatologic History: Reports: Other (See Below) Other Dermatologic History: Venous ulcer left leg - Infectious Disease History Infectious Disease History: Reports: Chicken Pox, Measles, Mumps - Past Surgical History HEENT Surgical History: Reports: Cataract Surgery, Tonsillectomy Female Surgical History: Reports: Hysterectomy Social & Family History - Family History Family Medical History: Noncontributory - Caffeine Use Caffeine Use: Reports: Coffee, Soda, Tea ED ROS GENERAL - Review of Systems Review Of Systems: See Below Constitutional: Reports: Malaise, Weakness HEENT: Reports: No Symptoms Respiratory: Reports: No Symptoms, Other (pt does use o2 at nite at 2 liters. ) Cardiovascular: Reports: Other (pt does have a higher bp/ ) GI/Abdominal: Reports: No Symptoms : Reports: No Symptoms Musculoskeletal: Reports: Other (pt is not having new muscle or joint pain. ) Skin: Reports: No Symptoms ED EXAM, GENERAL - Physical Exam Exam: See Below Free Text/Narrative:: pt arrived after falling forward over a walker. She ended up lying on the floor for about 30 hours. Exam Limited By: No Limitations General Appearance: Alert, No Apparent Distress, Anxious, Other (pupils are equal and not reactive. ) Ears: Normal TMs Nose: Normal Inspection Throat/Mouth: Normal Inspection Head: Atraumatic Neck: Other (pt has a cervical collar on for fractures in c5 pedicles. ) Respiratory/Chest: No Respiratory Distress Cardiovascular: Regular Rate, Rhythm GI/Abdominal: Soft, Non-Tender (Female) Exam: Deferred Rectal (Female) Exam: Deferred Back Exam: Normal Inspection Extremities: Other (pt has a deep leg ulcer that she is seeing Dr Galo with. She has a pick leg that she is receiving antibiotics in. ) Neurological: Alert, Oriented, Normal Cognition Psychiatric: Anxious Course - Vital Signs Last Recorded V/S: Last Vital Signs Temp 36.3 C 05/11/20 11:00 Pulse 70 05/11/20 11:00 Resp 15 05/11/20 11:00 BP 139/50 L 05/11/20 11:00 Pulse Ox 94 L 05/11/20 11:00 Orthostatic Blood Pressure [ 239/116 Standing] Orthostatic Blood Pressure [ 210/114 Sitting] Orthostatic Blood Pressure [ 188/87 Supine] - Orders/Labs/Meds Labs: Laboratory Tests 05/08/20 05/08/20 05/08/20 Range/Units 16:00 16:01 16:01 WBC 8.7 (4.5-11.0) K/uL RBC 4.89 (3.30-5.50) M/uL Hgb 12.6 (12.0-15.0) g/dL Hct 41.7 (36.0-48.0) % MCV 85 (80-98) fL MCH 26 L (27-31) pg MCHC 30 L (32-36) % Plt Count 241 (150-400) K/uL Neut % (Auto) 76 H (36-66) % Lymph % (Auto) 15 L (24-44) % Moore % (Auto) 8 H (2-6) % Eos % (Auto) 1 L (2-4) % Baso % (Auto) 0 (0-1) % Sodium 146 (140-148) mmol/L Potassium 3.7 (3.6-5.2) mmol/L Chloride 109 H (100-108) mmol/L Carbon Dioxide 33 H (21-32) mmol/L Anion Gap 7.7 (5.0-14.0) mmol/L BUN 14 (7-18) mg/dL Creatinine 1.1 H (0.6-1.0) mg/dL Est Cr Clr Drug Dosing 29.57 mL/min Estimated GFR (MDRD) 47 L (>60) Glucose 180 H (74-106) mg/dL Calcium 8.6 (8.5-10.1) mg/dL Total Bilirubin 0.9 (0.2-1.0) mg/dL AST 30 (15-37) U/L ALT 36 (12-78) U/L Alkaline Phosphatase 82 (46-116) U/L Creatine Kinase 129 (26-192) U/L Total Protein 6.5 (6.4-8.2) g/dL Albumin 2.7 L (3.4-5.0) g/dL Globulin 3.8 H (2.3-3.5) g/dL Albumin/Globulin Ratio 0.7 L (1.2-2.2) TSH, Ultra Sensitive 4.417 H (0.358-3.740) uIU/mL 05/08/20 Range/Units 18:19 WBC (4.5-11.0) K/uL RBC (3.30-5.50) M/uL Hgb (12.0-15.0) g/dL Hct (36.0-48.0) % MCV (80-98) fL MCH (27-31) pg MCHC (32-36) % Plt Count (150-400) K/uL Neut % (Auto) (36-66) % Lymph % (Auto) (24-44) % Moore % (Auto) (2-6) % Eos % (Auto) (2-4) % Baso % (Auto) (0-1) % Sodium (140-148) mmol/L Potassium (3.6-5.2) mmol/L Chloride (100-108) mmol/L Carbon Dioxide (21-32) mmol/L Anion Gap (5.0-14.0) mmol/L BUN (7-18) mg/dL Creatinine (0.6-1.0) mg/dL Est Cr Clr Drug Dosing mL/min Estimated GFR (MDRD) (>60) Glucose (74-106) mg/dL Calcium (8.5-10.1) mg/dL Total Bilirubin (0.2-1.0) mg/dL AST (15-37) U/L ALT (12-78) U/L Alkaline Phosphatase (46-116) U/L Creatine Kinase 130 (26-192) U/L Total Protein (6.4-8.2) g/dL Albumin (3.4-5.0) g/dL Globulin (2.3-3.5) g/dL Albumin/Globulin Ratio (1.2-2.2) TSH, Ultra Sensitive (0.358-3.740) uIU/mL Meds: Medications Discontinued Medications Generic Name Dose Route Start Last Admin Trade Name [place] PRN Reason Stop Dose Admin Acetaminophen 650 mg 05/08/20 20:47 Tylenol PO Q4H PRN Pain (Mild 1-3)/fever Aspirin 81 mg 05/09/20 09:00 05/11/20 08:18 Aspirin PO 81 mg DAILY JULIANNE Administration Bupivacaine HCl Confirm 05/10/20 09:43 05/10/20 16:05 Marcaine 0.5% Administered 05/10/20 09:44 10 ml Dose Administration 50 ml .ROUTE .STK-MED ONE Dextrose 15 gm 05/08/20 20:47 Glutose 15 PO ONETIME PRN Hypoglycemia Dextrose/Water 50 ml 05/08/20 20:47 Dextrose 50% In Water IV ONETIME PRN Hypoglycemia Enoxaparin Sodium 30 mg 05/08/20 20:47 05/08/20 22:27 Lovenox SUBCUT 30 mg DAILY JULIANNE Administration Enoxaparin Sodium 30 mg 05/09/20 21:00 Lovenox SUBCUT BEDTIME JULIANNE Fentanyl Confirm 05/10/20 14:38 Sublimaze Administered 05/10/20 14:39 Dose 100 mcg .ROUTE .STK-MED ONE Furosemide 40 mg 05/08/20 21:00 05/08/20 22:33 Lasix PO Not Given BID JULIANNE Furosemide 40 mg 05/08/20 21:45 05/11/20 08:18 Lasix PO 40 mg BIDDIURETIC JULIANNE Administration Sodium Chloride 1,000 mls @ 500 mls/hr 05/08/20 16:00 05/08/20 16:45 Normal Saline IV 500 mls/hr ASDIRECTED JULIANNE Administration Lactated Ringer's 1,000 mls @ 125 mls/hr 05/10/20 08:00 Ringers, Lactated IV ASDIRECTED JULIANNE Cefazolin Sodium/Dextrose 2 gm 50 mls @ 100 mls/hr 05/10/20 14:30 05/10/20 13:41 / Premix IV 05/10/20 14:59 100 mls/hr ONCALL ONE Administration Dextrose/Lactated Ringer's 1,000 mls @ 40 mls/hr 05/10/20 09:15 05/10/20 18:09 Dextrose 5%-Lactated Ringers IV 40 mls/hr ASDIRECTED JULIANNE Administration Linezolid Confirm 05/10/20 15:12 Zyvox Administered 05/10/20 15:13 Dose 300 mls @ as directed .ROUTE .STK-MED ONE Cefazolin Sodium/Dextrose 2 gm 50 mls @ 100 mls/hr 05/10/20 22:30 05/11/20 05:56 / Premix IV 05/11/20 14:59 100 mls/hr Q8H JULIANNE Administration Insulin Human Lispro 0 unit 05/08/20 20:47 05/11/20 13:39 Humalog SUBCUT Not Given QIDACANDBED [facility] Protocol Labetalol HCl Confirm 05/10/20 16:56 Normodyne Administered 05/10/20 16:57 Dose 20 mg .ROUTE .STK-MED ONE Lidocaine/Epinephrine Confirm 05/10/20 09:43 05/10/20 16:05 Xylocaine 1% With Epinephrine 1:100,000 Administered 05/10/20 09:44 10 ml Dose Administration 50 ml .ROUTE .STK-MED ONE Linezolid 600 mg 05/10/20 16:37 05/10/20 16:37 Zyvox IV 05/10/20 16:38 600 mg .STK-MED ONE Administration Lisinopril 40 mg 05/08/20 16:58 05/08/20 17:43 Prinivil PO 05/08/20 16:59 40 mg ONETIME ONE Administration Meropenem Confirm 05/10/20 09:43 Merrem Administered 05/10/20 09:44 Dose 500 mg .ROUTE .STK-MED ONE Midazolam HCl Confirm 05/10/20 14:38 Versed 1 Mg/Ml Administered 05/10/20 14:39 Dose 2 mg .ROUTE .STK-MED ONE Novolog Mix 70-30 0 units 05/09/20 17:00 05/10/20 18:29 Ptom SQ 22 units QPM JULIANNE Administration Novolog Mix 70-30 0 units 05/09/20 09:00 05/11/20 08:24 Ptom SQ 25 units QAM JULIANNE Administration Novolog Mix 70-30 15 units 05/10/20 09:30 06/24/20 09:30 Ptom SQ 06/24/20 09:31 15 units ONETIME ONE Administration Ondansetron HCl 4 mg 05/08/20 20:47 Zofran IV Q4H PRN Nausea/Vomiting Levothyroxine 125mcg 0 each 05/09/20 09:00 05/11/20 07:45 Ptom PO 1 each DAILY@0730 JULIANNE Administration Lisinopril 40mg 0 each 05/09/20 09:00 05/11/20 08:18 Ptom PO 1 each DAILY JULIANNE Administration Simvastatin 80mg 0 each 05/09/20 21:00 05/10/20 21:04 Ptom PO 1 each BEDTIME JULIANNE Administration Polyethylene Glycol 17 gm 05/08/20 20:47 05/10/20 21:06 Miralax PO 17 gm DAILY PRN Administration Constipation Propofol Confirm 05/10/20 14:38 Diprivan 20 Ml Administered 05/10/20 14:39 Dose 200 mg .ROUTE .STK-MED ONE Sodium Chloride 10 ml 05/08/20 20:47 Saline Flush FLUSH ASDIRECTED PRN Keep Vein Open - Re-Assessments/Exams Free Text/Narrative Re-Assessment/Exam: 05/08/20 17:00 pt has a bs of 180. She has good looking labs . Her cpk was normal.
[2020-05-08] MEDS ORDERED: Sodium Chloride 0.9% 1,000 ML IV SCH (16:00)
[2020-05-08] MEDS ORDERED: Lisinopril 10 MG Tab PO ONE (16:58)
--- NOTE | 2020-05-08 19:45 | PCM.HP.2 ---
H&P History of Present Illness - General Date of Service: 05/08/20 Admit Problem/Dx: Admission Diagnosis/Problem Admission Diagnosis/Problem Weakness Source of Information: Patient, Old Records, Provider, RN Notes Reviewed History Limitations: Reports: No Limitations - History of Present Illness Initial Comments - Free Text/Narative: Ms. Field is an 84-year-old woman who was admitted through the emergency department to observation status, for management of generalized weakness resulting in several recent falls. Over the last 2 weeks she has experienced 7 falls. 1 of which resulted in fractures of both pedicles at C5. This was felt to be a stable fracture and she is instructed to wear her soft cervical collar for a period of 3 months. She was hospitalized at this facility last week following a fall and was noted to have significant bradycardia when in the [facility] department. She was hospitalized for 4 days, during that period of time her atenolol was discontinued and by the time of discharge heart rate was into the 60s and 70s. Despite this she has had ongoing weakness at home and yesterday experienced another fall and was unable to get up. She spent the night on the floor until EMS was called today. On evaluation in the emergency department her CK level is within normal range and other labs are unremarkable. Heart rate is within acceptable range as is her blood pressure. She denies any other symptoms and there is no evidence of underlying infection. - Related Data Allergies/Adverse Reactions: Allergies Allergy/AdvReac Type Severity Reaction Status Date / Time bee venom protein (honey bee) Allergy Severe Anaphylactic Verified 05/08/20 15:59 Shock Sulfa (Sulfonamide Allergy Hives Verified 05/08/20 15:59 Antibiotics) Home Medications: Home Meds Aspirin [Children's Aspirin] 81 mg PO DAILY 04/20/20 [History] Furosemide 40 mg PO BID 04/20/20 [History] Insuln Asp Prot/Insulin Aspart [NovoLOG Mix 70-30] 22 units SQ QPM 04/20/20 [History] Insuln Asp Prot/Insulin Aspart [NovoLOG Mix 70-30] 25 units SQ QAM 04/20/20 [History] Levothyroxine Sodium [Synthroid] 125 mcg PO DAILY 04/20/20 [History] Simvastatin 80 mg PO DAILY 04/20/20 [History] lisinopriL [Lisinopril] 40 mg PO DAILY 04/20/20 [History] Past Medical History HEENT History: Reports: Cataract Cardiovascular History: Reports: Arrhythmia (Symptomatic bradycardia), Hypertension Respiratory History: Reports: Sleep Apnea Other Respiratory History: Cpap at home Gastrointestinal History: Reports: None Genitourinary History: Reports: Renal Disease, Other (See Below) Other Genitourinary History: Stage 3 kidney disease GAME MANAGER History: Reports: Dysfunctional Uterine Bleeding Musculoskeletal History: Reports: Arthritis, Other (See Below) Other Musculoskeletal History: neck fx Neurological History: Reports: Concussion Endocrine/Metabolic History: Reports: Diabetes, Type II, Hypothyroidism Hematologic History: Reports: Anticoagulation Therapy Oncologic (Cancer) History: Reports: Uterine Dermatologic History: Reports: Other (See Below) Other Dermatologic History: Venous ulcer left leg - Infectious Disease History Infectious Disease History: Reports: Chicken Pox, Measles, Mumps - Past Surgical History HEENT Surgical History: Reports: Cataract Surgery, Tonsillectomy Female Surgical History: Reports: Hysterectomy Social & Family History - Family History Family Medical History: Noncontributory - Tobacco Use Smoking Status *Q: Never Smoker - Caffeine Use Caffeine Use: Reports: Coffee, Soda, Tea - Recreational Drug Use Recreational Drug Use: No H&P Review of Systems - Review of Systems: Review Of Systems: See Below General: Reports: Weakness. Denies: Fever, Chills, Malaise, Fatigue HEENT: Reports: No Symptoms Pulmonary: Reports: No Symptoms Cardiovascular: Reports: No Symptoms Gastrointestinal: Reports: No Symptoms Genitourinary: Reports: No Symptoms Musculoskeletal: Reports: Neck Pain Skin: Reports: Other (Chronic venous stasis ulcer left leg) Psychiatric: Reports: No Symptoms Neurological: Reports: No Symptoms Hematologic/Lymphatic: Reports: No Symptoms Immunologic: Reports: No Symptoms Exam - Exam Exam: See Below - Vital Signs Vital Signs: Last Vital Signs Temp 97.8 F 05/08/20 15:58 Pulse 67 05/08/20 19:19 Resp 23 H 05/08/20 19:19 BP 178/67 H 05/08/20 19:19 Pulse Ox 96 05/08/20 19:19 Orthostatic Blood Pressure [ 239/116 Standing] Orthostatic Blood Pressure [ 210/114 Sitting] Orthostatic Blood Pressure [ 188/87 Supine] Weight: 241 lb - Exam Quality Assessment: DVT Prophylaxis General: Alert, Oriented, Cooperative, Mild Distress HEENT: Conjunctiva Clear, Hearing Intact, Mucosa Moist & Sun, Normal Nasal Septum, Posterior Pharynx Clear, Pupils Equal Neck: Supple, Trachea Midline, +2 Carotid Pulse wo Bruit Lungs: Clear to Auscultation, Normal Respiratory Effort Cardiovascular: Regular Rate, Regular Rhythm, Normal S1, Normal S2. No: Systolic Murmur, Diastolic Murmur GI/Abdominal Exam: Soft, Non-Tender, No Organomegaly, No Distention Extremities: Non-Tender, Other (Compression wrapping in place left lower leg) Neurological: Cranial Nerves Intact, Strength Equal Bilateral, Normal Speech, Normal Tone, Sensation Intact. No: Focal Deficit Neuro Extensive - Mental Status: Alert, Oriented x3, Normal Mood/Affect, Normal Cognition, Memory Intact - Patient Data Lab Results Last 24 hrs: Laboratory Results - last 24 hr 05/08/20 05/08/20 05/08/20 Range/Units 16:00 16:01 16:01 WBC 8.7 (4.5-11.0) K/uL RBC 4.89 (3.30-5.50) M/uL Hgb 12.6 (12.0-15.0) g/dL Hct 41.7 (36.0-48.0) % MCV 85 (80-98) fL MCH 26 L (27-31) pg MCHC 30 L (32-36) % Plt Count 241 (150-400) K/uL Neut % (Auto) 76 H (36-66) % Lymph % (Auto) 15 L (24-44) % [place] % (Auto) 8 H (2-6) % Eos % (Auto) 1 L (2-4) % Baso % (Auto) 0 (0-1) % Sodium 146 (140-148) mmol/L Potassium 3.7 (3.6-5.2) mmol/L Chloride 109 H (100-108) mmol/L Carbon Dioxide 33 H (21-32) mmol/L Anion Gap 7.7 (5.0-14.0) mmol/L BUN 14 (7-18) mg/dL Creatinine 1.1 H (0.6-1.0) mg/dL Est Cr Clr Drug Dosing 29.57 mL/min Estimated GFR (MDRD) 47 L (>60) Glucose 180 H (74-106) mg/dL Calcium 8.6 (8.5-10.1) mg/dL Total Bilirubin 0.9 (0.2-1.0) mg/dL AST 30 (15-37) U/L ALT 36 (12-78) U/L Alkaline Phosphatase 82 (46-116) U/L Creatine Kinase 129 (26-192) U/L Total Protein 6.5 (6.4-8.2) g/dL Albumin 2.7 L (3.4-5.0) g/dL Globulin 3.8 H (2.3-3.5) g/dL Albumin/Globulin Ratio 0.7 L (1.2-2.2) TSH, Ultra Sensitive 4.417 H (0.358-3.740) uIU/mL 05/08/20 Range/Units 18:19 WBC (4.5-11.0) K/uL RBC (3.30-5.50) M/uL Hgb (12.0-15.0) g/dL Hct (36.0-48.0) % MCV (80-98) fL MCH (27-31) pg MCHC (32-36) % Plt Count (150-400) K/uL Neut % (Auto) (36-66) % Lymph % (Auto) (24-44) % [place] % (Auto) (2-6) % Eos % (Auto) (2-4) % Baso % (Auto) (0-1) % Sodium (140-148) mmol/L Potassium (3.6-5.2) mmol/L Chloride (100-108) mmol/L Carbon Dioxide (21-32) mmol/L Anion Gap (5.0-14.0) mmol/L BUN (7-18) mg/dL Creatinine (0.6-1.0) mg/dL Est Cr Clr Drug Dosing mL/min Estimated GFR (MDRD) (>60) Glucose (74-106) mg/dL Calcium (8.5-10.1) mg/dL Total Bilirubin (0.2-1.0) mg/dL AST (15-37) U/L ALT (12-78) U/L Alkaline Phosphatase (46-116) U/L Creatine Kinase 130 (26-192) U/L Total Protein (6.4-8.2) g/dL Albumin (3.4-5.0) g/dL Globulin (2.3-3.5) g/dL Albumin/Globulin Ratio (1.2-2.2) TSH, Ultra Sensitive (0.358-3.740) uIU/mL Result Diagrams: 05/08/20 16:01 05/08/20 16:01 Sepsis Event Note - Evaluation Sepsis Screening Result: No Definite Risk - Focused Exam Vital Signs: Vital Signs Temp Pulse Resp BP BP Pulse Ox 05/08/20 19:19 67 23 H 178/67 H 96 05/08/20 17:43 199/91 H 05/08/20 15:58 97.8 F 54 L 11 L 165/59 H 94 L 05/08/20 15:41 54 L 11 L 165/59 H 94 L 05/08/20 15:06 97.8 F 56 L 16 181/67 H 93 L Date Exam was Performed: 05/08/20 Time Exam was Performed: 20:35 *Q Meaningful Use (ADM) - VTE Risk Assess *Q Each Risk Factor Represents 1 Point: Swollen Legs, Current, Obesity ( BMI > 25 kg/m2) Total Score 1 Point Risk Factors: 2 Each Risk Factor Represents 2 Points: None Total Score 2 Point Risk Factors: 0 Each Risk Factor Represents 3 Points: Age 75 Years or Greater Total Score 3 Point Risk Factors: 3 Each Risk Factor Represents 5 Points: None Total Score 5 Point Risk Factors: 0 Venous Thromboembolism Risk Factor Score *Q: 5 Problem List Initiated/Reviewed/Updated: Yes Orders Last 24hrs: Active Orders 24 hr Category Date Time Status Patient Status Manage Transfer [TRANSFER] Routine ADT 05/08/20 19:40 Ordered Orthostatic Vital Signs [RC] ASDIRECTED Care 05/08/20 15:48 Active Chest 1V Frontal [CR] Stat Exams 05/08/20 15:49 Taken UA W/MICROSCOPIC [URIN] Urgent Lab 05/08/20 15:48 Ordered Sodium Chloride 0.9% [Normal Saline] 1,000 ml Med 05/08/20 16:00 Active IV ASDIRECTED Resuscitation Status Routine Resus Stat 05/08/20 19:41 Ordered Medication Orders Sodium Chloride (Normal Saline) 1,000 mls @ 500 mls/hr IV ASDIRECTED JULIANNE Last Admin: 05/08/20 16:45 Dose: 500 mls/hr Documented by: PREILOR Assessment/Plan Comment:: ASSESSMENT AND PLAN GENERALIZED WEAKNESS WITH RECURRENT FALLS-no other specific etiology has been identified on multiple evaluations. On hospitalization last week was felt that bradycardia may be a contributing factor. Heart rate is within better range and she is continued to experience falls. She denies any loss of consciousness but just feels that her legs get weak and give out. -[facility]irement placement for restorative physical therapy and Occupational Therapy TYPE 2 DIABETES MELLITUS -Continue usual outpatient insulin regimen -Low-dose sliding scale Humalog -4 times daily glucometers C5 FRACTURES-with a recent fall was noted to have fractures of both pedicles at C5 -Continue to wear soft cervical collar at all times MAINTENANCE ISSUES -DVT prophylaxis; Lovenox 40 mg subcu daily -GI prophylaxis; not indicated -Ramos catheter; not indicated -Nutrition; consistent carb diet -Nicotine dependence; not required CODE STATUS-FULL CODE ADMISSION STATUS-this patient will be admitted to observation status, expect no more than a one night hospital stay for evaluation and management of problems as outlined above. DISPOSITION-anticipate discharge to home after the hospital stay. PRIMARY CARE PROVIDER-Jordan Milton - Mortality Measure Prognosis:: Good
[2020-05-08] MEDS ORDERED: Sodium Chloride 0.9% 10 ML Syringe FLUSH PRN (20:47)
[2020-05-08] MEDS ORDERED: Glucose Gel 15 GM in 37.5 GM Tube PO PRN (20:47)
[2020-05-08] MEDS ORDERED: Polyethylene Glycol 3350 Powder 17 GM Packet PO PRN (20:47)
[2020-05-08] MEDS ORDERED: Acetaminophen 325 MG Tab PO PRN (20:47)
[2020-05-08] MEDS ORDERED: 50% Dextrose in Water 50 ML Syringe IV PRN (20:47)
[2020-05-08] MEDS ORDERED: Ondansetron 4 MG/2 ML SDV IV PRN (20:47)
[2020-05-08] MEDS ORDERED: Enoxaparin 30 MG/0.3 ML Syringe SUBCUT SCH (20:47)
[2020-05-08] MEDS ORDERED: Furosemide 40 MG Tab PO SCH (21:00)
[2020-05-08] MEDS: Insulin Lispro 100 Unit/ML 3 ML KwikPen SUBCUT SCH (21:27)
[2020-05-08] MEDS: Furosemide 40 MG **PTOM PO SCH (22:27)
[2020-05-09] MEDS ORDERED: SIMVASTATIN 80 MG PO SCH (09:00)
--- NOTE | 2020-05-09 09:11 | CR ---
CHEST: Portable 05/08/2020 at 407 CLINICAL HISTORY:SOB COMPARISON:04/30/2020 FINDINGS: Heart is enlarged. There are atherosclerotic changes in the aorta.. Pulmonary vascularity is somewhat cephalized but similar to prior study. No infiltrates are seen Impression: Cardiomegaly with mild vascular cephalization. This is similar to prior study may be chronic No infiltrates or effusions.
[2020-05-09] MEDS: Furosemide 40 MG **PTOM PO SCH ×2 (09:34→14:08)
[2020-05-09] MEDS: NOVOLOG MIX SQ SCH ×2 (09:35→17:17)
[2020-05-09] MEDS: Aspirin 81 MG Tab.Chew PO SCH (09:35)
[2020-05-09] MEDS: Insulin Lispro 100 Unit/ML 3 ML KwikPen SUBCUT SCH ×4 (09:38→22:16)
[2020-05-09] MEDS: LISINOPRIL 40MG **PTOM PO SCH (09:41)
[2020-05-09] MEDS: LEVOTHYROXINE 125 MCG PO SCH (09:41)
--- NOTE | 2020-05-09 18:21 | PCM.PN ---
- General Info Date of Service: 05/09/20 Subjective Update: Ms. Field has had recurrent episodes of severe bradycardia since admission with heart rates into the low 30s on a regular basis. Underlying rhythm is atrial fibrillation indicating there is severe conduction disease. Because of ongoing bradycardia despite having recently stopped beta-jersey therapy will require single chamber permanent pacemaker placement. She is otherwise been stable and reports that she is feeling relatively well. Functional Status: Reports: Tolerating Diet, Urinating. Denies: Ambulating - Review of Systems General: Reports: Weakness, Fatigue. Denies: Fever, Chills Pulmonary: Reports: No Symptoms Cardiovascular: Reports: Lightheadedness. Denies: Chest Pain, Palpitations, Dyspnea on Exertion, Orthopnea, PND, Edema Gastrointestinal: Reports: No Symptoms - Patient Data Vitals - Most Recent: Last Vital Signs Temp 98.2 F 05/09/20 14:45 Pulse 46 L 05/09/20 14:45 Resp 18 05/09/20 14:45 BP 141/43 H 05/09/20 14:45 Pulse Ox 97 05/09/20 14:45 Orthostatic Blood Pressure [ 239/116 Standing] Orthostatic Blood Pressure [ 210/114 Sitting] Orthostatic Blood Pressure [ 188/87 Supine] Weight - Most Recent: 240 lb 12.8 oz I&O - Last 24 Hours: Intake & Output 05/09/20 05/09/20 05/09/20 06:59 14:59 22:59 Intake Total 100 700 Output Total 1500 900 900 Balance -1400 -900 -200 Lab Results Last 24 Hours: Laboratory Results - last 24 hr 05/08/20 Range/Units 18:19 Creatine Kinase 130 (26-192) U/L Med Orders - Current: Current Medications Acetaminophen (Tylenol) 650 mg PO Q4H PRN PRN Reason: Pain (Mild 1-3)/fever Aspirin (Aspirin) 81 mg PO DAILY JULIANNE Last Admin: 05/09/20 09:35 Dose: 81 mg Documented by: Dextrose (Glutose 15) 15 gm PO ONETIME PRN PRN Reason: Hypoglycemia Dextrose/Water (Dextrose 50% In Water) 50 ml IV ONETIME PRN PRN Reason: Hypoglycemia Enoxaparin Sodium (Lovenox) 30 mg SUBCUT BEDTIME JULIANNE Furosemide (Lasix) 40 mg PO BIDDIURETIC JULIANNE Last Admin: 05/09/20 14:08 Dose: 40 mg Documented by: Lactated Ringer's (Ringers, Lactated) 1,000 mls @ 125 mls/hr IV ASDIRECTED [facility] Insulin Human Lispro (Humalog) 0 unit SUBCUT QIDACANDBED [facility]; Protocol Last Admin: 05/09/20 17:16 Dose: Not Given Documented by: Novolog Mix 70-30 (Ptom) 0 units SQ QPM [facility] Last Admin: 05/09/20 17:17 Dose: 22 units Documented by: Novolog Mix 70-30 (Ptom) 0 units SQ QAM [facility] Last Admin: 05/09/20 09:35 Dose: 25 units Documented by: Ondansetron HCl (Zofran) 4 mg IV Q4H PRN PRN Reason: Nausea/Vomiting Levothyroxine 125mcg (Ptom) 0 each PO DAILY@0730 [facility] Last Admin: 05/09/20 09:41 Dose: 1 each Documented by: Lisinopril 40mg (Ptom) 0 each PO DAILY [facility] Last Admin: 05/09/20 09:41 Dose: 1 each Documented by: Simvastatin 80mg (Ptom) 0 each PO BEDTIME [facility] Polyethylene Glycol (Miralax) 17 gm PO DAILY PRN PRN Reason: Constipation Sodium Chloride (Saline Flush) 10 ml FLUSH ASDIRECTED PRN PRN Reason: Keep Vein Open Discontinued Medications Enoxaparin Sodium (Lovenox) 30 mg SUBCUT DAILY [facility] Last Admin: 05/08/20 22:27 Dose: 30 mg Documented by: Furosemide (Lasix) 40 mg PO BID [facility] Last Admin: 05/08/20 22:33 Dose: Not Given Documented by: Sodium Chloride (Normal Saline) 1,000 mls @ 500 mls/hr IV ASDIRECTED [facility] Last Admin: 05/08/20 16:45 Dose: 500 mls/hr Documented by: Lisinopril (Prinivil) 40 mg PO ONETIME ONE Stop: 05/08/20 16:59 Last Admin: 05/08/20 17:43 Dose: 40 mg Documented by: - Exam General: Alert, Oriented, Cooperative, Mild Distress Lungs: Clear to Auscultation, Normal Respiratory Effort Cardiovascular: No Murmurs, Irregular Rhythm, Bradycardia GI/Abdominal Exam: Soft, Non-Tender, No Organomegaly, No Distention Extremities: Non-Tender, No Pedal Edema Sepsis Event Note - Evaluation Sepsis Screening Result: No Definite Risk - Focused Exam Vital Signs: Vital Signs Temp Pulse Resp BP Pulse Ox 05/09/20 14:45 98.2 F 46 L 18 141/43 H 97 05/09/20 11:00 95.9 F L 55 L 18 136/50 L 99 05/09/20 08:36 97.1 F 45 L 18 148/69 H 96 05/09/20 08:32 29 L 05/09/20 07:00 98.9 F 49 L 20 156/47 H 98 Date Exam was Performed: 05/09/20 Time Exam was Performed: 18:16 - Problem List Review Problem List Initiated/Reviewed/Updated: Yes - My Orders Last 24 Hours: My Active Orders 05/08/20 19:41 Resuscitation Status Routine 05/08/20 20:47 Acetaminophen [Tylenol] 650 mg PO Q4H PRN Dextrose 50% in Water 50 ml IV ONETIME PRN Dextrose [Glutose 15] 15 gm PO ONETIME PRN Insulin Lispro [HumaLOG] See Protocol SUBCUT QIDACANDBED Ondansetron [Zofran] 4 mg IV Q4H PRN Sodium Chloride 0.9% [Saline Flush] 10 ml FLUSH ASDIRECTED PRN polyethylene glycoL 3350 [MiraLAX] 17 gm PO DAILY PRN 05/08/20 20:47 Patient Status [ADT] Routine Ambulate [RC] QID Blood Glucose Check, Bedside [RC] QIDACANDBED Cardiac Monitoring [RC] .As Directed Diabetes Education [RC] Click to Edit Height and Weight [RC] 0500 Intake and Output [RC] QSHIFT Notify Provider Vital Signs [RC] ASDIRECTED Notify Provider [RC] PRN Oxygen Therapy [RC] PRN Up With Assistance [RC] ASDIRECTED Up to Chair [RC] QID VTE/DVT Education [RC] Per Unit Routine Vital Signs [RC] Q4H PT Evaluation and Treatment [CONS] Routine Saline Lock Insert [OM.PC] Routine 05/08/20 21:45 Furosemide [Lasix] 40 mg PO BIDDIURETIC 05/09/20 09:00 Aspirin 81 mg PO DAILY Insuln Asp Prot/Insulin Aspart [NovoLOG Mix 70-30] 0 units SQ QAM Patient's Own Medication [Ptom] 0 each PO DAILY Patient's Own Medication [Ptom] 0 each PO DAILY@0730 05/09/20 17:00 Insuln Asp Prot/Insulin Aspart [NovoLOG Mix 70-30] 0 units SQ QPM 05/09/20 18:15 Notify Provider Consults [RC] ASDIRECTED Consult to Physician [CONS] Routine 05/09/20 21:00 GLUCOSE POC LAB TO COLLECT [POC] QIDACANDBED Enoxaparin [Lovenox] 30 mg SUBCUT BEDTIME Patient's Own Medication [Ptom] 0 each PO BEDTIME 05/10/20 07:30 GLUCOSE POC LAB TO COLLECT [POC] QIDACANDBED 05/10/20 Breakfast NPO Now [Nothing per Oral Now Diet] [DIET] Lactated Ringers @ 125 MLS/HR(1000ml) Lactated Ringers [Ringers, Lactated] 1,000 ml IV ASDIRECTED 05/10/20 11:30 GLUCOSE POC LAB TO COLLECT [POC] QIDACANDBED 05/10/20 16:30 GLUCOSE POC LAB TO COLLECT [POC] QIDACANDBED 05/10/20 21:00 GLUCOSE POC LAB TO COLLECT [POC] QIDACANDBED 05/11/20 07:30 GLUCOSE POC LAB TO COLLECT [POC] QIDACANDBED 05/11/20 11:30 GLUCOSE POC LAB TO COLLECT [POC] QIDACANDBED 05/11/20 16:30 GLUCOSE POC LAB TO COLLECT [POC] QIDACANDBED 05/11/20 21:00 GLUCOSE POC LAB TO COLLECT [POC] QIDACANDBED 05/12/20 07:30 GLUCOSE POC LAB TO COLLECT [POC] QIDACANDBED 05/12/20 11:30 GLUCOSE POC LAB TO COLLECT [POC] QIDACANDBED 05/12/20 16:30 GLUCOSE POC LAB TO COLLECT [POC] QIDACANDBED 05/12/20 21:00 GLUCOSE POC LAB TO COLLECT [POC] QIDACANDBED 05/13/20 07:30 GLUCOSE POC LAB TO COLLECT [POC] QIDACANDBED 05/13/20 11:30 GLUCOSE POC LAB TO COLLECT [POC] QIDACANDBED 05/13/20 16:30 GLUCOSE POC LAB TO COLLECT [POC] QIDACANDBED - Plan Plan:: ASSESSMENT AND PLAN GENERALIZED WEAKNESS WITH RECURRENT FALLS-and's admission she has been noted to have recurrent episodes of severe bradycardia which also may be a contributing factor to recent falls. -[facility] placement for restorative physical therapy and Occupational Therapy ATRIAL FIBRILLATION WITH SLOW VENTRICULAR RESPONSE-indicates severe underlying conduction disease. Beta-jersey therapy was stopped during her last hospitalization and despite this she continues to experience episodes of severe bradycardia. -Single-chamber permanent pacemaker placement -Consult Dr. Holder for pacemaker placement tomorrow TYPE 2 DIABETES MELLITUS -Continue usual outpatient insulin regimen -Low-dose sliding scale Humalog -4 times daily glucometers C5 FRACTURES-with a recent fall was noted to have fractures of both pedicles at C5 -Continue to wear soft cervical collar at all times MAINTENANCE ISSUES -DVT prophylaxis; Lovenox 40 mg subcu daily -GI prophylaxis; not indicated -Ramos catheter; not indicated -Nutrition; consistent carb diet -Nicotine dependence; not required CODE STATUS-FULL CODE ADMISSION STATUS-this patient will be admitted to observation status, expect no more than a one night hospital stay for evaluation and management of problems as outlined above. DISPOSITION-anticipate discharge to home after the hospital stay. PRIMARY CARE PROVIDER-Jordan Milton
[2020-05-09] MEDS: SIMVASTATIN 80 MG PO SCH (20:13)
[2020-05-09] MEDS ORDERED: Enoxaparin 30 MG/0.3 ML Syringe SUBCUT SCH (21:00)
[2020-05-10] MEDS: LEVOTHYROXINE 125 MCG PO SCH (07:23)
[2020-05-10] MEDS: Furosemide 40 MG **PTOM PO SCH ×2 (07:24→13:22)
[2020-05-10] MEDS ORDERED: Lactated Ringers 1,000 ML IV SCH (08:00)
--- NOTE | 2020-05-10 08:26 | PCM.CONS ---
H&P History of Present Illness - General Date of Service: 05/10/20 Admit Problem/Dx: Admission Diagnosis/Problem Bradycardia Source of Information: Patient History Limitations: Reports: No Limitations - History of Present Illness Other HPI/Comments: Kathy states that she has had several episodes of slow heart rate and she would pass out. She has been talking about a pacemaker for a couple of months and states that after passing out at home she is ready. - Related Data Allergies/Adverse Reactions: Allergies Allergy/AdvReac Type Severity Reaction Status Date / Time bee venom protein (honey bee) Allergy Severe Anaphylactic Verified 05/08/20 15:59 Shock Sulfa (Sulfonamide Allergy Hives Verified 05/08/20 15:59 Antibiotics) Home Medications: Home Meds Aspirin [Children's Aspirin] 81 mg PO DAILY 04/20/20 [History] Furosemide 40 mg PO BID 04/20/20 [History] Insuln Asp Prot/Insulin Aspart [NovoLOG Mix 70-30] 22 units SQ QPM 04/20/20 [History] Insuln Asp Prot/Insulin Aspart [NovoLOG Mix 70-30] 25 units SQ QAM 04/20/20 [History] Levothyroxine Sodium [Synthroid] 125 mcg PO DAILY 04/20/20 [History] Simvastatin 80 mg PO DAILY 04/20/20 [History] lisinopriL [Lisinopril] 40 mg PO DAILY 04/20/20 [History] Past Medical History HEENT History: Reports: Cataract Cardiovascular History: Reports: Arrhythmia, Hypertension Respiratory History: Reports: Sleep Apnea Other Respiratory History: Cpap at home Gastrointestinal History: Reports: None Genitourinary History: Reports: Renal Disease, Other (See Below) Other Genitourinary History: Stage 3 kidney disease FEATHER STITCHER History: Reports: Dysfunctional Uterine Bleeding Musculoskeletal History: Reports: Arthritis, Other (See Below) Other Musculoskeletal History: neck fx Neurological History: Reports: Concussion Endocrine/Metabolic History: Reports: Diabetes, Type II, Hypothyroidism Hematologic History: Reports: Anticoagulation Therapy Oncologic (Cancer) History: Reports: Uterine Dermatologic History: Reports: Other (See Below) Other Dermatologic History: Venous ulcer left leg - Infectious Disease History Infectious Disease History: Reports: Chicken Pox, Measles, Mumps - Past Surgical History HEENT Surgical History: Reports: Cataract Surgery, Tonsillectomy Female Surgical History: Reports: Hysterectomy Social & Family History - Family History Family Medical History: Noncontributory - Tobacco Use Smoking Status *Q: Never Smoker Second Hand Smoke Exposure: No - Caffeine Use Caffeine Use: Reports: Coffee - Recreational Drug Use Recreational Drug Use: No H&P Review of Systems - Review of Systems: Review Of Systems: Comprehensive ROS is negative, except as noted in HPI. Exam - Exam Exam: See Below - Vital Signs Vital Signs: Last Vital Signs Temp 97.1 F 05/10/20 06:23 Pulse 67 05/10/20 06:23 Resp 18 05/10/20 06:23 BP 121/97 H 05/10/20 06:23 Pulse Ox 95 05/10/20 06:23 Orthostatic Blood Pressure [ 239/116 Standing] Orthostatic Blood Pressure [ 210/114 Sitting] Orthostatic Blood Pressure [ 188/87 Supine] Weight: 239 lb 1.6 oz - Exam Quality Assessment: DVT Prophylaxis General: Alert, Oriented, Cooperative HEENT: PERRLA Neck: Supple, Trachea Midline Lungs: Clear to Auscultation, Normal Respiratory Effort Cardiovascular: Regular Rate, Regular Rhythm GI/Abdominal Exam: Soft, Non-Tender (Female) Exam: Deferred Rectal (Female) Exam: Deferred Back Exam: Normal Inspection, Full Range of Motion Extremities: Normal Inspection Skin: Warm, Dry, Intact Neurological: Cranial Nerves Intact, Reflexes Equal Bilateral Neuro Extensive - Mental Status: Alert, Oriented x3, Normal Mood/Affect Neuro Extensive - Motor, Sensory, Reflexes: CN II-XII Intact Psychiatric: Alert, Normal Affect, Normal Mood - Patient Data Result Diagrams: 05/08/20 16:01 05/08/20 16:01 Sepsis Event Note - Evaluation Sepsis Screening Result: No Definite Risk - Focused Exam Vital Signs: Vital Signs Temp Pulse Resp BP BP Pulse Ox 05/10/20 06:23 97.1 F 67 18 121/97 H 95 05/10/20 03:00 98.2 F 50 L 20 153/50 H 98 05/09/20 22:38 96.8 F L 50 L 16 152/48 H 97 Date Exam was Performed: 05/10/20 Time Exam was Performed: 08:26 Consult PN Assessment/Plan POD#: 0 Procedures: Procedures AIRWAY INHALATION TREATMENT (04/30/20) ASSAY OF LACTIC ACID (04/29/20) ASSAY OF MAGNESIUM (04/30/20) ASSAY OF TROPONIN QUANT (04/30/20) ASSAY THYROID STIM HORMONE (04/30/20) COMPLETE CBC AUTOMATED (04/30/20) COMPLETE CBC W/AUTO DIFF WBC (04/30/20) COMPREHEN METABOLIC PANEL (04/30/20) CT HEAD/BRAIN W/O DYE (04/28/20) CT MAXILLOFACIAL W/O DYE (04/28/20) CT NECK SPINE W/O DYE (04/28/20) ELECTROCARDIOGRAM REPORT (04/30/20) ELECTROCARDIOGRAM TRACING (04/30/20) EMERGENCY DEPT VISIT (05/05/20) EMERGENCY DEPT VISIT (05/05/20) EMERGENCY DEPT VISIT (04/30/20) EMERGENCY DEPT VISIT (04/29/20) EMERGENCY DEPT VISIT (04/29/20) EMERGENCY DEPT VISIT (04/28/20) GLUCOSE BLOOD TEST (04/30/20) MEASURE BLOOD OXYGEN LEVEL (04/30/20) PT EVAL LOW COMPLEX 20 MIN (04/30/20) ROUTINE VENIPUNCTURE (04/30/20) THER/PROPH/DIAG IV INF INIT (04/30/20) THERAPEUTIC ACTIVITIES (04/30/20) URINALYSIS AUTO W/SCOPE (04/29/20) URINE CULTURE/COLONY COUNT (04/29/20) X-RAY EXAM CHEST 1 VIEW (04/30/20) X-RAY EXAM HIP UNI 2-3 VIEWS (05/05/20) X-RAY EXAM OF KNEE 1 OR 2 (05/05/20) Problem List Initiated/Reviewed/Updated: Yes My Orders Last 24 Hours: My Active Orders 05/10/20 14:30 Verify Patient Consent Obtain [RC] ASDIRECTED ceFAZolin [Ancef] 2 gm Premix Bag 1 bag IV ONCALL
[2020-05-10] MEDS: Aspirin 81 MG Tab.Chew PO SCH (08:53)
[2020-05-10] MEDS: LISINOPRIL 40MG **PTOM PO SCH (08:53)
[2020-05-10] MEDS: Insulin Lispro 100 Unit/ML 3 ML KwikPen SUBCUT SCH ×3 (09:27→21:16)
[2020-05-10] MEDS ORDERED: NOVOLOG MIX SQ ONE (09:30)
[2020-05-10] MEDS: NOVOLOG MIX SQ SCH ×2 (09:30→18:29)
[2020-05-10] MEDS: Dextrose 5%-Lactated Ringers 1,000 ML IV SCH ×2 (09:32→18:09)
[2020-05-10] MEDS ORDERED: Lidocaine 1% with EPINEPHrine 1:100,000 50 ML MDV ONE (09:43)
[2020-05-10] MEDS ORDERED: Meropenem 500 MG SDV ONE (09:43)
[2020-05-10] MEDS ORDERED: Bupivacaine 0.5% 50 ML MDV ONE (09:43)
[2020-05-10] MEDS ORDERED: ceFAZolin 2 GM in Premix Bag 1 BAG IV ONE (14:30)
[2020-05-10] MEDS ORDERED: fentaNYL 100 MCG/2 ML SDV ONE (14:38)
[2020-05-10] MEDS ORDERED: Midazolam 1 MG/ML 2 ML SDV ONE (14:38)
[2020-05-10] MEDS ORDERED: Propofol 200 MG/20 ML SDV ONE (14:38)
--- NOTE | 2020-05-10 15:38 | PCM.PN ---
- General Info Date of Service: 05/10/20 Subjective Update: Ms. Field is continued to experience episodes of severe bradycardia. She has been seen and evaluated by Dr. Holder and a single-chamber pacemaker will be placed this afternoon. She has been doing well with physical therapy and was able to walk a short distance today with their assistance. Functional Status: Reports: Tolerating Diet, Ambulating, Urinating - Review of Systems General: Reports: Weakness. Denies: Fever, Chills Pulmonary: Reports: No Symptoms Cardiovascular: Reports: Palpitations, Lightheadedness. Denies: Chest Pain, Dyspnea on Exertion, Orthopnea, PND, Edema Gastrointestinal: Reports: No Symptoms - Patient Data Vitals - Most Recent: Last Vital Signs Temp 97.4 F 05/10/20 14:48 Pulse 48 L 05/10/20 14:48 Resp 18 05/10/20 14:48 BP 161/92 H 05/10/20 14:48 Pulse Ox 98 05/10/20 14:48 Orthostatic Blood Pressure [ 239/116 Standing] Orthostatic Blood Pressure [ 210/114 Sitting] Orthostatic Blood Pressure [ 188/87 Supine] Weight - Most Recent: 239 lb 1.6 oz I&O - Last 24 Hours: Intake & Output 05/10/20 05/10/20 05/10/20 06:59 14:59 22:59 Intake Total 430 Balance 430 Med Orders - Current: Current Medications Acetaminophen (Tylenol) 650 mg PO Q4H PRN PRN Reason: Pain (Mild 1-3)/fever Aspirin (Aspirin) 81 mg PO DAILY [facility] Last Admin: 05/10/20 08:53 Dose: Not Given Documented by: Dextrose (Glutose 15) 15 gm PO ONETIME PRN PRN Reason: Hypoglycemia Dextrose/Water (Dextrose 50% In Water) 50 ml IV ONETIME PRN PRN Reason: Hypoglycemia Furosemide (Lasix) 40 mg PO BIDDIURETIC [facility] Last Admin: 05/10/20 13:22 Dose: Not Given Documented by: Dextrose/Lactated Ringer's (Dextrose 5%-Lactated Ringers) 1,000 mls @ 125 mls/hr IV ASDIRECTED [facility] Last Admin: 05/10/20 09:32 Dose: 125 mls/hr Documented by: Insulin Human Lispro (Humalog) 0 unit SUBCUT QIDACANDBED [facility]; Protocol Last Admin: 05/10/20 09:27 Dose: Not Given Documented by: Novolog Mix 70-30 (Ptom) 0 units SQ QPM [facility] Last Admin: 05/09/20 17:17 Dose: 22 units Documented by: Novolog Mix 70-30 (Ptom) 0 units SQ QAM [facility] Last Admin: 05/10/20 09:30 Dose: Not Given Documented by: Ondansetron HCl (Zofran) 4 mg IV Q4H PRN PRN Reason: Nausea/Vomiting Levothyroxine 125mcg (Ptom) 0 each PO DAILY@0730 [facility] Last Admin: 05/10/20 07:23 Dose: Not Given Documented by: Lisinopril 40mg (Ptom) 0 each PO DAILY [facility] Last Admin: 05/10/20 08:53 Dose: 1 each Documented by: Simvastatin 80mg (Ptom) 0 each PO BEDTIME [facility] Last Admin: 05/09/20 20:13 Dose: 1 each Documented by: Polyethylene Glycol (Miralax) 17 gm PO DAILY PRN PRN Reason: Constipation Sodium Chloride (Saline Flush) 10 ml FLUSH ASDIRECTED PRN PRN Reason: Keep Vein Open Discontinued Medications Bupivacaine HCl (Marcaine 0.5%) Confirm Administered Dose 50 ml .ROUTE .STK-MED ONE Stop: 05/10/20 09:44 Enoxaparin Sodium (Lovenox) 30 mg SUBCUT DAILY [facility] Last Admin: 05/08/20 22:27 Dose: 30 mg Documented by: Enoxaparin Sodium (Lovenox) 30 mg SUBCUT BEDTIME [facility] Fentanyl (Sublimaze) Confirm Administered Dose 100 mcg .ROUTE .STK-MED ONE Stop: 05/10/20 14:39 Furosemide (Lasix) 40 mg PO BID [facility] Last Admin: 05/08/20 22:33 Dose: Not Given Documented by: Sodium Chloride (Normal Saline) 1,000 mls @ 500 mls/hr IV ASDIRECTED [facility] Last Admin: 05/08/20 16:45 Dose: 500 mls/hr Documented by: Lactated Ringer's (Ringers, Lactated) 1,000 mls @ 125 mls/hr IV ASDIRECTED JULIANNE Cefazolin Sodium/Dextrose 2 gm (/ Premix) 50 mls @ 100 mls/hr IV ONCALL ONE Stop: 05/10/20 14:59 Last Admin: 05/10/20 13:41 Dose: 100 mls/hr Documented by: Linezolid (Zyvox) Confirm Administered Dose 300 mls @ as directed .ROUTE .STK- MED ONE Stop: 05/10/20 15:13 Lidocaine/Epinephrine (Xylocaine 1% With Epinephrine 1:100,000) Confirm Administered Dose 50 ml .ROUTE .STK-MED ONE Stop: 05/10/20 09:44 Lisinopril (Prinivil) 40 mg PO ONETIME ONE Stop: 05/08/20 16:59 Last Admin: 05/08/20 17:43 Dose: 40 mg Documented by: Meropenem (Merrem) Confirm Administered Dose 500 mg .ROUTE .STK-MED ONE Stop: 05/10/20 09:44 Midazolam HCl (Versed 1 Mg/Ml) Confirm Administered Dose 2 mg .ROUTE .STK-MED ONE Stop: 05/10/20 14:39 Novolog Mix 70-30 (Ptom) 15 units SQ ONETIME ONE Stop: 05/10/20 09:31 Last Admin: 05/10/20 09:30 Dose: 15 units Documented by: Propofol (Diprivan 20 Ml) Confirm Administered Dose 200 mg .ROUTE .STK-MED ONE Stop: 05/10/20 14:39 - Exam Quality Assessment: DVT Prophylaxis General: Alert, Oriented, Cooperative, No Acute Distress Lungs: Clear to Auscultation, Normal Respiratory Effort Cardiovascular: No Murmurs, Irregular Rhythm, Bradycardia GI/Abdominal Exam: Soft, Non-Tender, No Organomegaly, No Distention Extremities: Non-Tender, No Pedal Edema Sepsis Event Note - Evaluation Sepsis Screening Result: No Definite Risk - Focused Exam Vital Signs: Vital Signs Temp Pulse Resp BP Pulse Ox 05/10/20 14:48 97.4 F 48 L 18 161/92 H 98 05/10/20 10:53 97.4 F 51 L 18 127/50 L 99 05/10/20 06:23 97.1 F 67 18 121/97 H 95 Date Exam was Performed: 05/10/20 Time Exam was Performed: 15:35 - Problem List Review Problem List Initiated/Reviewed/Updated: Yes - My Orders Last 24 Hours: My Active Orders 05/09/20 17:00 Insuln Asp Prot/Insulin Aspart [NovoLOG Mix 70-30] 0 units SQ QPM 05/09/20 18:15 Notify Provider Consults [RC] ASDIRECTED Consult to Physician [CONS] Routine 05/09/20 18:21 Patient Status [ADT] Routine Antiembolic Devices [RC] .Routine Sequential Compression Device [OM.PC] Routine 05/09/20 21:00 Patient's Own Medication [Ptom] 0 each PO BEDTIME 05/10/20 Breakfast NPO Now [Nothing per Oral Now Diet] [DIET] 05/10/20 09:15 Dextrose 5%-Lactated Ringers 1,000 ml IV ASDIRECTED 05/10/20 16:30 GLUCOSE POC LAB TO COLLECT [POC] QIDACANDBED 05/10/20 21:00 GLUCOSE POC LAB TO COLLECT [POC] QIDACANDBED 05/11/20 07:30 GLUCOSE POC LAB TO COLLECT [POC] QIDACANDBED 05/11/20 11:30 GLUCOSE POC LAB TO COLLECT [POC] QIDACANDBED 05/11/20 16:30 GLUCOSE POC LAB TO COLLECT [POC] QIDACANDBED 05/11/20 21:00 GLUCOSE POC LAB TO COLLECT [POC] QIDACANDBED 05/12/20 07:30 GLUCOSE POC LAB TO COLLECT [POC] QIDACANDBED 05/12/20 11:30 GLUCOSE POC LAB TO COLLECT [POC] QIDACANDBED 05/12/20 16:30 GLUCOSE POC LAB TO COLLECT [POC] QIDACANDBED 05/12/20 21:00 GLUCOSE POC LAB TO COLLECT [POC] QIDACANDBED 05/13/20 07:30 GLUCOSE POC LAB TO COLLECT [POC] QIDACANDBED 05/13/20 11:30 GLUCOSE POC LAB TO COLLECT [POC] QIDACANDBED 05/13/20 16:30 GLUCOSE POC LAB TO COLLECT [POC] QIDACANDBED - Plan Plan:: ASSESSMENT AND PLAN GENERALIZED WEAKNESS WITH RECURRENT FALLS-since admission she has been noted to have recurrent episodes of severe bradycardia which also may be a contributing factor to recent falls. -[facility]DC placement for restorative physical therapy and Occupational Therapy ATRIAL FIBRILLATION WITH SLOW VENTRICULAR RESPONSE-indicates severe underlying conduction disease. Beta-jersey therapy was stopped during her last hospitalization and despite this she continues to experience episodes of severe bradycardia. -Single-chamber permanent pacemaker placement -Consult Dr. Holder for pacemaker placement today TYPE 2 DIABETES MELLITUS -Continue usual outpatient insulin regimen -Low-dose sliding scale Humalog -4 times daily glucometers C5 FRACTURES-with a recent fall was noted to have fractures of both pedicles at C5 -Continue to wear soft cervical collar at all times MAINTENANCE ISSUES -DVT prophylaxis; Lovenox 40 mg subcu daily -GI prophylaxis; not indicated -Ramos catheter; not indicated -Nutrition; consistent carb diet -Nicotine dependence; not required CODE STATUS-FULL CODE ADMISSION STATUS-this patient will be admitted to observation status, expect no more than a one night hospital stay for evaluation and management of problems as outlined above. DISPOSITION-anticipate discharge to home after the hospital stay. PRIMARY CARE PROVIDER-Jordan Milton
[2020-05-10] MEDS ORDERED: Labetalol 20 MG/4 ML Syringe ONE (16:56)
[2020-05-10] MEDS: SIMVASTATIN 80 MG PO SCH (21:04)
[2020-05-10] MEDS: ceFAZolin 2 GM in Premix Bag 1 BAG IV SCH (22:40)
[2020-05-11] MEDS: ceFAZolin 2 GM in Premix Bag 1 BAG IV SCH (05:56)
[2020-05-11] MEDS: LEVOTHYROXINE 125 MCG PO SCH (07:45)
[2020-05-11] MEDS: Insulin Lispro 100 Unit/ML 3 ML KwikPen SUBCUT SCH ×2 (08:17→13:39)
[2020-05-11] MEDS: Aspirin 81 MG Tab.Chew PO SCH (08:18)
[2020-05-11] MEDS: Furosemide 40 MG **PTOM PO SCH (08:18)
[2020-05-11] MEDS: LISINOPRIL 40MG **PTOM PO SCH (08:18)
[2020-05-11] MEDS: NOVOLOG MIX SQ SCH (08:24)
--- NOTE | 2020-05-11 11:52 | PN ---
DATE OF SERVICE: 05/11/2020 SUBJECTIVE: Kathy is postoperative day #1 following placement of a pacemaker. She states she feels the best she has in several years. Her pacemaker has been set at 70. Vital signs have been stable. Oral intake 860, urine output 800. REVIEW OF SYSTEMS: Remainder of review of systems negative for any pertinent positives and negatives. OBJECTIVE: GENERAL: Kathy Field is a pleasant 84-year-old female. VITAL SIGNS: TPR at 0700, 97; 70; 19; blood pressure 165/85. HEENT: Negative. NECK: Supple. HEART: Regular rate and rhythm. LUNGS: Clear. EXTREMITIES: Negative. ASSESSMENT: 1. Status post placement of transvenous pacemaker. 2. Pacemaker is compatible with MRI. This was explained to the patient. She is to follow up with Natan Holder MD on 05/17/2020. Dressing is to be left on and replaced as needed because it is going to be rubbed by the cervical collar. New cervical collar to be given. 3. We will evaluate p.r.n. or in a.m. Loyda Armendariz PA-C /[id number]
--- NOTE | 2020-05-11 12:02 | PCM.DCSUM1 ---
Discharge Summary - Hospital Course Brief History: Ms. Field was admitted to observation status through the emergency room after a recurrent fall at home secondary to bradycardia and generalized weakness. - Discharge Data Discharge Date: 05/11/20 Discharge Disposition: DC/Tfer to SNF 03 Condition: Fair - Referral to Home Health Primary Care Physician: PCP None - Discharge Diagnosis/Problem(s) (1) Symptomatic bradycardia SNOMED Code(s): 71927471, 607438213 ICD Code: R00.1 - BRADYCARDIA, UNSPECIFIED Status: Acute Current Visit: No (2) Chronic atrial fibrillation SNOMED Code(s): 450121524 ICD Code: I48.20 - CHRONIC ATRIAL FIBRILLATION, UNSPECIFIED Status: Chronic Current Visit: No (3) Fall in elderly patient SNOMED Code(s): 557755398 ICD Code: R29.6 - REPEATED FALLS Status: Acute Current Visit: Yes (4) C5 pedicle fracture SNOMED Code(s): 56641106555588940, 30485880724661304 ICD Code: S12.490A - OTH DISP FX OF FIFTH CERVICAL VERTEBRA, INIT FOR CLOS FX Status: Acute Current Visit: No (5) Weakness SNOMED Code(s): 08893795 ICD Code: R53.1 - WEAKNESS Status: Acute Current Visit: Yes Onset Date: ~04/28/20 Problem Details: Will hold atenolol for now, if patient develops symptoms she may require transfer to an outside hospital. Otherwise likely this will resolve with resumption of normal heartrate - Patient Summary/Data Consults: Consultations 05/08/20 20:47 PT Evaluation and Treatment [CONS] Routine Please Evaluate and Treat. PT Reason for Consult: Weakness with recurrent falls This query below is only for informational purposes and is not editable. 05/09/20 18:15 Consult to Physician [CONS] Routine Consulting Provider: Natan Holder Courtesy Call Completed to Consulting Physician: Yes Reason for Consult: Single-chamber permanent pacemaker placement Hospital Course: Ms. Field is an 84-year-old woman who was admitted through the emergency department to observation status, for management of generalized weakness resulting in several recent falls. Over the last 2 weeks she has experienced 7 falls. 1 of which resulted in fractures of both pedicles at C5. This was felt to be a stable fracture and she is instructed to wear her soft cervical collar for a period of 3 months. She was hospitalized at this facility last week following a fall and was noted to have significant bradycardia when in the emergency department. She was hospitalized for 4 days, during that period of time her atenolol was discontinued and by the time of discharge heart rate was into the 60s and 70s. Despite this she has had ongoing weakness at home and yesterday experienced another fall and was unable to get up. She spent the night on the floor until EMS was called. On evaluation in the emergency department her CK level is within normal range and other labs are unremarkable. Heart rate is within acceptable range as is her blood pressure. She denies any other symptoms and there is no evidence of underlying infection. Admission she was placed on telemetry monitoring and by the following day she had been noted to have multiple episodes of severe bradycardia with heart rates dropping still into the low 30s. Blood sugars were monitored and remained stable throughout her hospitalization. Surgical consult was obtained with Dr. Holder and on the day prior to discharge a single chamber pacemaker was placed. By the following day patient was reporting feeling much better with increased strength and en ergy. She remains somewhat unstable with ambulation and [facility] be [facility] for [facility]orative physical therapy and Occupational Therapy. Prior to discharge she was seen by Dr. Teixeira and had her left lower leg venous stasis ulcer redressed, she will see Dr. Teixeira for follow-up again in a week. She will also be scheduled to see Dr. Holder for follow-up of her pacemaker in 1 week. Activity will be as tolerated and she will be on a low- sodium diabetic diet. - Patient Instructions Diet: Low Sodium, Diabetic Diet Activity: As Tolerated Other/Special Instructions: Please schedule follow-up appointment with Dr. Holder within 1 week. Please schedule follow-up with Dr. Teixeira next week. - Discharge Plan *PRESCRIPTION DRUG MONITORING PROGRAM REVIEWED*: Not Applicable *COPY OF PRESCRIPTION DRUG MONITORING REPORT IN PATIENT MARTINEZ: Not Applicable Home Medications: Home Meds Aspirin [Children's Aspirin] 81 mg PO DAILY 04/20/20 [History] Furosemide 40 mg PO BID 04/20/20 [History] Insuln Asp Prot/Insulin Aspart [NovoLOG Mix 70-30] 22 units SQ QPM 04/20/20 [History] Insuln Asp Prot/Insulin Aspart [NovoLOG Mix 70-30] 25 units SQ QAM 04/20/20 [History] Levothyroxine Sodium [Synthroid] 125 mcg PO DAILY 04/20/20 [History] Simvastatin 80 mg PO DAILY 04/20/20 [History] lisinopriL [Lisinopril] 40 mg PO DAILY 04/20/20 [History] Referrals: Natan Holder MD [Physician] - 05/17/20 (call for a time to be seen in clinic ) - Discharge Summary/Plan Comment DC Time >30 min.: No - Patient Data Vitals - Most Recent: Last Vital Signs Temp 97.4 F 05/11/20 11:00 Pulse 70 05/11/20 11:00 Resp 15 05/11/20 11:00 BP 139/50 L 05/11/20 11:00 Pulse Ox 94 L 05/11/20 11:00 Orthostatic Blood Pressure [ 239/116 Standing] Orthostatic Blood Pressure [ 210/114 Sitting] Orthostatic Blood Pressure [ 188/87 Supine] Weight - Most Recent: 245 lb 8 oz I&O - Last 24 hours: Intake & Output 05/10/20 05/11/20 05/11/20 22:59 06:59 14:59 Intake Total 240 866 Output Total 800 Balance 240 66 Med Orders - Current: Current Medications Acetaminophen (Tylenol) 650 mg PO Q4H PRN PRN Reason: Pain (Mild 1-3)/fever Aspirin (Aspirin) 81 mg PO DAILY [facility] Last Admin: 05/11/20 08:18 Dose: 81 mg Documented by: Dextrose (Glutose 15) 15 gm PO ONETIME PRN PRN Reason: Hypoglycemia Dextrose/Water (Dextrose 50% In Water) 50 ml IV ONETIME PRN PRN Reason: Hypoglycemia Furosemide (Lasix) 40 mg PO BIDDIURETIC [facility] Last Admin: 05/11/20 08:18 Dose: 40 mg Documented by: Dextrose/Lactated Ringer's (Dextrose 5%-Lactated Ringers) 1,000 mls @ 40 mls/hr IV ASDIRECTED [facility] Last Admin: 05/10/20 18:09 Dose: 40 mls/hr Documented by: Cefazolin Sodium/Dextrose 2 gm (/ Premix) 50 mls @ 100 mls/hr IV Q8H JULIANNE Stop: 05/11/20 14:59 Last Admin: 05/11/20 05:56 Dose: 100 mls/hr Documented by: Insulin Human Lispro (Humalog) 0 unit SUBCUT QIDACANDBED [facility]; Protocol Last Admin: 05/11/20 08:17 Dose: Not Given Documented by: Novolog Mix 70-30 (Ptom) 0 units SQ QPM [facility] Last Admin: 05/10/20 18:29 Dose: 22 units Documented by: Novolog Mix 70-30 (Ptom) 0 units SQ QAM [facility] Last Admin: 05/11/20 08:24 Dose: 25 units Documented by: Ondansetron HCl (Zofran) 4 mg IV Q4H PRN PRN Reason: Nausea/Vomiting Levothyroxine 125mcg (Ptom) 0 each PO DAILY@0730 [facility] Last Admin: 05/11/20 07:45 Dose: 1 each Documented by: Lisinopril 40mg (Ptom) 0 each PO DAILY [facility] Last Admin: 05/11/20 08:18 Dose: 1 each Documented by: Simvastatin 80mg (Ptom) 0 each PO BEDTIME [facility] Last Admin: 05/10/20 21:04 Dose: 1 each Documented by: Polyethylene Glycol (Miralax) 17 gm PO DAILY PRN PRN Reason: Constipation Last Admin: 05/10/20 21:06 Dose: 17 gm Documented by: Sodium Chloride (Saline Flush) 10 ml FLUSH ASDIRECTED PRN PRN Reason: Keep Vein Open Discontinued Medications Bupivacaine HCl (Marcaine 0.5%) Confirm Administered Dose 50 ml .ROUTE .STK-MED ONE Stop: 05/10/20 09:44 Last Admin: 05/10/20 16:05 Dose: 10 ml Documented by: Enoxaparin Sodium (Lovenox) 30 mg SUBCUT DAILY [facility] Last Admin: 05/08/20 22:27 Dose: 30 mg Documented by: Enoxaparin Sodium (Lovenox) 30 mg SUBCUT BEDTIME [facility] Fentanyl (Sublimaze) Confirm Administered Dose 100 mcg .ROUTE .STK-MED ONE Stop: 05/10/20 14:39 Furosemide (Lasix) 40 mg PO BID [facility] Last Admin: 05/08/20 22:33 Dose: Not Given Documented by: Sodium Chloride (Normal Saline) 1,000 mls @ 500 mls/hr IV ASDIRECTED [facility] Last Admin: 05/08/20 16:45 Dose: 500 mls/hr Documented by: Lactated Ringer's (Ringers, Lactated) 1,000 mls @ 125 mls/hr IV ASDIRECTED JULIANNE Cefazolin Sodium/Dextrose 2 gm (/ Premix) 50 mls @ 100 mls/hr IV ONCALL ONE Stop: 05/10/20 14:59 Last Admin: 05/10/20 13:41 Dose: 100 mls/hr Documented by: Linezolid (Zyvox) Confirm Administered Dose 300 mls @ as directed .ROUTE .STK- MED ONE Stop: 05/10/20 15:13 Labetalol HCl (Normodyne) Confirm Administered Dose 20 mg .ROUTE .STK-MED ONE Stop: 05/10/20 16:57 Lidocaine/Epinephrine (Xylocaine 1% With Epinephrine 1:100,000) Confirm Administered Dose 50 ml .ROUTE .STK-MED ONE Stop: 05/10/20 09:44 Last Admin: 05/10/20 16:05 Dose: 10 ml Documented by: Linezolid (Zyvox) 600 mg IV .STK-MED ONE Stop: 05/10/20 16:38 Last Admin: 05/10/20 16:37 Dose: 600 mg Documented by: Lisinopril (Prinivil) 40 mg PO ONETIME ONE Stop: 05/08/20 16:59 Last Admin: 05/08/20 17:43 Dose: 40 mg Documented by: Meropenem (Merrem) Confirm Administered Dose 500 mg .ROUTE .STK-MED ONE Stop: 05/10/20 09:44 Midazolam HCl (Versed 1 Mg/Ml) Confirm Administered Dose 2 mg .ROUTE .STK-MED ONE Stop: 05/10/20 14:39 Novolog Mix 70-30 (Ptom) 15 units SQ ONETIME ONE Stop: 05/10/20 09:31 Last Admin: 05/10/20 09:30 Dose: 15 units Documented by: Propofol (Diprivan 20 Ml) Confirm Administered Dose 200 mg .ROUTE .STK-MED ONE Stop: 05/10/20 14:39 - Exam Quality Assessment: Reports: DVT Prophylaxis General: Reports: Alert, Oriented, Cooperative, No Acute Distress Lungs: Reports: Clear to Auscultation, Normal Respiratory Effort Cardiovascular: Reports: Regular Rate, Regular Rhythm, No Murmurs GI/Abdominal Exam: Soft, Non-Tender, No Organomegaly, No Distention Extremities: Non-Tender, No Pedal Edema
--- NOTE | 2020-05-11 12:10 | OR ---
DATE OF PROCEDURE: 05/10/2020 SURGEON: Natan Holder MD PREOPERATIVE DIAGNOSIS: Symptomatic bradycardia associated with longstanding atrial fibrillation. POSTOPERATIVE DIAGNOSIS: Symptomatic bradycardia associated with longstanding atrial fibrillation. OPERATIVE PROCEDURE: Placement of a single-chamber transvenous ventricular pacemaker ([id number]). ANESTHESIA: Local plus IV sedation. INDICATIONS FOR PROCEDURE: This is an 84-year-old female, presenting with some syncopal episodes with longstanding atrial fibrillation, periods of heart rates in the 30s, which at this point appear to be probably symptomatic in terms of her episodes of hypotension and such. Plan is to proceed with a single-chamber transvenous ventricular pacemaker. Potential risks of the procedure were reviewed with the patient's including bleeding, infection, pneumohemothorax, vascular or cardiac injury, possibility of the pacemaker failing, as well as the possibility of cardiopulmonary, septic, or hemorrhagic complications leading to were all discussed, and the patient wishes to proceed. DETAILS OF PROCEDURE: The patient was taken to the operating room and placed in a supine position. The patient has a C5 fracture, so the cervical collar is left in place, and the upper chest and neck areas were prepped below that level. IV sedation was administered, and the left infraclavicular soft tissues were anesthetized with 1% lidocaine mixed with Marcaine and the left subclavian vein cannulated and the guidewire passed. Initially, the guidewire passed up into the jugular vein and was eventually manipulated down into the innominate vein and from there into the superior vena cava and right atrium. Some additional local was injected and transverse infraclavicular incision was made, carried down through the skin, subcutaneous tissue, down to the level of the pectoralis major fascia. Beyond the pectoralis fascia, then a pocket was constructed bluntly. An introducer and peel-away catheter were then placed over the guidewire, and a Medtronic lead, model number [id number] was used. This was a MRI compatible lead, given the patient's cervical and other bony abnormalities, which might require additional MRIs over time. This was eventually manipulated into the right ventricle and implanted over the intraventricular septum. The latter was chosen to optimize cardiac output. This was a screw-in lead and was screwed in without difficulty, and at that point, the introducer and peel-away catheter were removed. The patient was noted to have satisfactory redundancy within the lead system at this point. The stimulation threshold showed a stimulation threshold of 0.8 V, impedance of 868 ohms, and an R-wave sensing of 7.9 millivolts. The lead was stimulated with 10 V of current, and no diaphragmatic pacing was noted. At this point, the lead was sutured into pacemaker pocket with some 3-0 Vicryl stitch, and a pulse generator was then placed. This was Smartdate pulse generator, model number [id number]. Immediate accurate, adequate pacing and sensing functions were noted, and the lead and pulse generator were placed in the pocket. Throughout the procedure, the incision was intermittently irrigated with Zyvox-containing saline solution. Incision was closed in 2 layers of 3-0 Vicryl stitch deep and 5-0 Vicryl subcuticular stitch. Dressing was applied. The patient was taken to the recovery room in satisfactory condition. There were no evident complications. Of note, the patient's rate will be set at 70, since she is going to be largely pacemaker dependent and will likely do better with some higher baseline rate. Natan Holder MD /[id number]
== END 2020-05-11 14:36 | DRG 243 ==
LOC: JP.ED 14:56 → JP.MS 19:40 → OBSVTOIN 05-09 18:21
PROVIDERS: ADMIT Hospitalist; ATTEND Hospitalist
PROC: 0JH604Z Insertion of Pacemaker, Single Chamber into Chest Subcutaneous Tissue and Fascia, Open Approach (ICD-10-PCS; principal; 2020-05-10)
PROC: 02HK3JZ Insertion of Pacemaker Lead into Right Ventricle, Percutaneous Approach (ICD-10-PCS; 2020-05-10)
DX: R53.1 Weakness (principal); R29.6 Repeated falls; S12.400A Unspecified displaced fracture of fifth cervical vertebra, initial encounter for closed fracture; W19.XXXA Unspecified fall, initial encounter; Z91.81 History of falling; G47.30 Sleep apnea, unspecified; R00.1 Bradycardia, unspecified; S12.490A Other displaced fracture of fifth cervical vertebra, initial encounter for closed fracture; L97.829 Non-pressure chronic ulcer of other part of left lower leg with unspecified severity; M19.90 Unspecified osteoarthritis, unspecified site; E03.9 Hypothyroidism, unspecified; Z85.42 Personal history of malignant neoplasm of other parts of uterus; Z98.49 Cataract extraction status, unspecified eye; I48.20 Chronic atrial fibrillation, unspecified; N18.3 Chronic kidney disease, stage 3 (moderate); I12.9 Hypertensive chronic kidney disease with stage 1 through stage 4 chronic kidney disease, or unspecified chronic kidney disease; E11.22 Type 2 diabetes mellitus with diabetic chronic kidney disease; I83.028 Varicose veins of left lower extremity with ulcer other part of lower leg; Z91.030 Bee allergy status; Z88.2 Allergy status to sulfonamides; Z79.82 Long term (current) use of aspirin; Z79.4 Long term (current) use of insulin; Z79.890 Hormone replacement therapy; Z79.899 Other long term (current) drug therapy; G47.00 Insomnia, unspecified; Z79.01 Long term (current) use of anticoagulants; Z90.710 Acquired absence of both cervix and uterus
CPT/HCPCS: 36415; 71045 ×2; 80053; 82550 ×2; 82962; 84443; 85025; 96360; 96361; 97161; 97530; 99285; A9270 ×7; J1650; J7030; 71046; 94762; 96372; 97110-GP; 97116-GP; C1785; C1898; G0378; J0690; J1815; J2020; J2185; J2250; J2704; J3010; J3490; J7121

== ENCOUNTER 2020-05-14 11:34 | Emergency (ER) | payer MEDICARE, OTHER ==
--- NOTE | 2020-05-14 12:08 | EDM.PDOC ---
ED HPI GENERAL MEDICAL PROBLEM - General Chief Complaint: Neuro Symptoms/Deficits Stated Complaint: POSSIBLE STROKE Time Seen by Provider: 05/14/20 12:00 Source of Information: Reports: Patient, EMS History Limitations: Reports: No Limitations - History of Present Illness INITIAL COMMENTS - FREE TEXT/NARRATIVE: This 84 y/o female developed aphasia, confusion and right sided weakness at 0930 this morning. She lives at [facility] for short-term rehab following pacemaker implant. EMS transported her to the ER and during the transfer her speech and right arm weakness resolved (as did the confusion). She has persistent right leg weakness and ataxia. She has a history of a fib and takes an aspirin daily but no anticoags. She had a pacemaker implanted last week at this facility. She denies other symptoms. She has a history of frequent falls and a recent C5 pedicle fracture. - Related Data Allergies Allergy/AdvReac Type Severity Reaction Status Date / Time bee venom protein (honey bee) Allergy Severe Anaphylactic Verified 05/14/20 11:59 Shock Sulfa (Sulfonamide Allergy Hives Verified 05/14/20 11:59 Antibiotics) Home Meds: Home Meds Aspirin [Children's Aspirin] 81 mg PO DAILY 04/20/20 [History] Furosemide 40 mg PO BID 04/20/20 [History] Insuln Asp Prot/Insulin Aspart [NovoLOG Mix 70-30] 22 units SQ QPM 04/20/20 [History] Insuln Asp Prot/Insulin Aspart [NovoLOG Mix 70-30] 25 units SQ QAM 04/20/20 [History] Levothyroxine Sodium [Synthroid] 125 mcg PO DAILY 04/20/20 [History] Simvastatin 80 mg PO DAILY 04/20/20 [History] lisinopriL [Lisinopril] 40 mg PO DAILY 04/20/20 [History] Past Medical History HEENT History: Reports: Cataract Cardiovascular History: Reports: Arrhythmia (Symptomatic bradycardia), Hypertension Respiratory History: Reports: Sleep Apnea Other Respiratory History: Cpap at home Gastrointestinal History: Reports: None Genitourinary History: Reports: Renal Disease, Other (See Below) Other Genitourinary History: Stage 3 kidney disease [employer] [employer] History: Reports: Dysfunctional Uterine Bleeding Musculoskeletal History: Reports: Arthritis, Other (See Below) Other Musculoskeletal History: neck fx Neurological History: Reports: Concussion Endocrine/Metabolic History: Reports: Diabetes, Type II, Hypothyroidism Hematologic History: Reports: Anticoagulation Therapy Oncologic (Cancer) History: Reports: Uterine Dermatologic History: Reports: Other (See Below) Other Dermatologic History: Venous ulcer left leg - Infectious Disease History Infectious Disease History: Reports: Chicken Pox, Measles, Mumps - Past Surgical History HEENT Surgical History: Reports: Cataract Surgery, Tonsillectomy Female Surgical History: Reports: Hysterectomy Social & Family History - Family History Family Medical History: Noncontributory - Tobacco Use Smoking Status *Q: Never Smoker - Caffeine Use Caffeine Use: Reports: None - Recreational Drug Use Recreational Drug Use: No ED ROS GENERAL - Review of Systems Review Of Systems: See Below Constitutional: Reports: Weakness. Denies: Fever, Chills HEENT: Denies: Vertigo Respiratory: Denies: Shortness of Breath, Cough Cardiovascular: Denies: Chest Pain, Dyspnea on Exertion Musculoskeletal: Denies: Neck Pain, Shoulder Pain, Back Pain Skin: Denies: Bruising Neurological: Reports: Confusion, Headache, Weakness, Change in Speech Psychiatric: Reports: No Symptoms ED EXAM, NEURO - Physical Exam Exam: See Below Exam Limited By: No Limitations General Appearance: Alert, WD/WN, Obese Head Exam: Atraumatic, Normocephalic. No: Facial Swelling, Facial Tenderness Neck: Other (She is in a soft collar) Respiratory/Chest: No Respiratory Distress, Lungs Clear Cardiovascular: Irregularly Irregular Neurological: Alert, Normal Mood/Affect, Oriented x 3, Other (She has no diplopia, normal visual martin, normal cognition. She has normal strength arms, but is weak on the right leg. She has no ataxia with her arms. She has normal sensation. NIHSS is 3 with weak right leg with ataxia of right leg.) Skin Exam: Other (Bruising of lower extremities. ) Course - Vital Signs Text/Narrative:: This patient has acute right leg weakness and ataxia that began at 0930 this morning. She has a history of a fib and is on aspirin without anticoagulation. She had a recent pacemaker implanted last week. Her beside BS was 130. Her NIHSS was 3. She had a non acute NCCT of the head. Stroke neurologist, Dr Mireles at [facility] was consulted by phone. Her BP is okay at 160/75. TPA was given by bolus and infusion. She is accepted by Dr Mireles admission, evaluation and treatment. She is being sent to [place] by ground [facility]. She is a DNR/DNI. She agrees with this transport. EKG = A fib with normal rate. Critical Care time is 30 minutes. Last Recorded V/S: Last Vital Signs Temp 36.6 C 05/14/20 11:55 Pulse 70 05/14/20 11:55 Resp 18 05/14/20 11:55 BP 163/70 H 05/14/20 11:55 Pulse Ox 96 05/14/20 11:55 - Orders/Labs/Meds Orders: Active Orders 24 hr Category Date Time Status EKG Documentation Completion [RC] ASDIRECTED Care 05/14/20 12:02 Active Head wo Cont [CT] Stat Exams 05/14/20 Taken COMPREHENSIVE METABOLIC PN,CMP [CHEM] Stat Lab 05/14/20 12:01 Ordered INR,PT,PROTHROMBIN TIME [COAG] Stat Lab 05/14/20 12:02 Ordered Alteplase [Activase] Med 05/14/20 13:00 Once 9 mg IVPUSH ONETIME ONE Alteplase [Activase] 81 mg Med 05/14/20 13:00 Active Premix Bag 1 bag IV ONETIME EKG 12 Lead [EK] Routine Ther 05/14/20 12:02 Ordered Medication Orders Alteplase, Recombinant (Activase) 9 mg IVPUSH ONETIME ONE Stop: 05/14/20 13:01 Alteplase, Recombinant 81 mg/ (Premix) 81 mls @ 81 mls/hr IV ONETIME ONE Stop: 05/14/20 13:59 Labs: Laboratory Tests 05/14/20 Range/Units 12:41 WBC 10.9 (4.5-11.0) K/uL RBC 5.32 (3.30-5.50) M/uL Hgb 13.5 (12.0-15.0) g/dL Hct 44.9 (36.0-48.0) % MCV 84 (80-98) fL MCH 25 L (27-31) pg MCHC 30 L (32-36) % Plt Count 259 (150-400) K/uL Neut % (Auto) 77 H (36-66) % Lymph % (Auto) 12 L (24-44) % Harney % (Auto) 10 H (2-6) % Eos % (Auto) 1 L (2-4) % Baso % (Auto) 0 (0-1) % Meds: Medications Generic Name Dose Route Start Last Admin Trade Name [place] PRN Reason Stop Dose Admin Alteplase, Recombinant 9 mg 05/14/20 13:00 Activase IVPUSH 05/14/20 13:01 ONETIME ONE Alteplase, Recombinant 81 mg/ 81 mls @ 81 mls/hr 05/14/20 13:00 Premix IV 05/14/20 13:59 ONETIME ONE Departure - Departure Time of Disposition: 13:00 Disposition: DC/Tfer to Acute Hospital 02 Condition: Fair Clinical Impression: CVA (cerebral vascular accident) - Discharge Information *PRESCRIPTION DRUG MONITORING PROGRAM REVIEWED*: No *COPY OF PRESCRIPTION DRUG MONITORING REPORT IN PATIENT MARTINEZ: No Referrals: PCP,None [Primary Care Provider] - Forms: ED Department Discharge Additional Instructions: Transported to [place] by ground [facility] EMS. Sepsis Event Note (ED) - Evaluation Sepsis Screening Result: No Definite Risk - Focused Exam Vital Signs: Vital Signs Temp Pulse Resp BP Pulse Ox 05/14/20 11:55 36.6 C 70 18 163/70 H 96 - My Orders Last 24 Hours: My Active Orders 05/14/20 Head wo Cont [CT] Stat 05/14/20 12:01 COMPREHENSIVE METABOLIC PN,CMP [CHEM] Stat 05/14/20 12:02 EKG Documentation Completion [RC] ASDIRECTED INR,PT,PROTHROMBIN TIME [COAG] Stat EKG 12 Lead [EK] Routine 05/14/20 13:00 Alteplase [Activase] 9 mg IVPUSH ONETIME ONE Alteplase [Activase] 81 mg Premix Bag 1 bag IV ONETIME - Assessment/Plan Last 24 Hours: My Active Orders 05/14/20 Head wo Cont [CT] Stat 05/14/20 12:01 COMPREHENSIVE METABOLIC PN,CMP [CHEM] Stat 05/14/20 12:02 EKG Documentation Completion [RC] ASDIRECTED INR,PT,PROTHROMBIN TIME [COAG] Stat EKG 12 Lead [EK] Routine 05/14/20 13:00 Alteplase [Activase] 9 mg IVPUSH ONETIME ONE Alteplase [Activase] 81 mg Premix Bag 1 bag IV ONETIME
[2020-05-14] MEDS ORDERED: Alteplase 81 MG in Premix Bag 1 BAG IV ONE (13:00)
--- NOTE | 2020-05-15 06:44 | CRLCT ---
Final Report: INDICATION: Stroke. TECHNIQUE: Head CT without contrast. COMPARISON: 04/28/2020. FINDINGS: CSF spaces: Prominence of ventricles and sulci likely due to age related volume loss, similar to prior. Brain parenchyma: Mild patchy periventricular and subcortical white matter hypoattenuation is nonspecific but likely due to mild chronic small vessel ischemic changes, similar to prior. No sign of mass, hemorrhage, or midline shift. Skull base and calvarium: Mild mucosal thickening and frothy material in the left maxillary and sphenoid sinuses. The visualized orbits are grossly unremarkable. No skull fractures. IMPRESSION: : 1. No acute intracranial abnormality. 2. Mild chronic small vessel ischemic changes, similar prior 3. Left maxillary and sphenoid sinusitis. Please note that all CT scans at this facility use dose modulation, iterative reconstruction, and/or weight-based dosing when appropriate to reduce radiation dose to as low as reasonably achievable. Dictated by Shon Pruett MD @ May 14 2020 12:24PM Signed by: Shon Pruett MD @05/14/2020 12:28:33 PM (Electronic Signature) MTDD
== END 2020-05-14 13:39 ==
LOC: JP.ED 11:34
DX: I63.9 Cerebral infarction, unspecified (principal); I12.9 Hypertensive chronic kidney disease with stage 1 through stage 4 chronic kidney disease, or unspecified chronic kidney disease; N18.3 Chronic kidney disease, stage 3 (moderate); E11.22 Type 2 diabetes mellitus with diabetic chronic kidney disease; E03.9 Hypothyroidism, unspecified; M19.90 Unspecified osteoarthritis, unspecified site; I48.91 Unspecified atrial fibrillation; Z91.030 Bee allergy status; Z88.2 Allergy status to sulfonamides; Z79.82 Long term (current) use of aspirin; Z79.4 Long term (current) use of insulin; Z79.899 Other long term (current) drug therapy
CPT/HCPCS: 36415; 37195; 70450; 80053; 82962; 85025; 85610; 93005; 99285; J2997

== ENCOUNTER 2021-12-07 06:34 | Day surgery (SDC) | payer MEDICARE, OTHER ==
[2021-12-07] MEDS ORDERED: Sodium Tetradecyl Sulfate 1% 20 MG/2 ML SDV ONE (06:37)
[2021-12-07] MEDS ORDERED: Lidocaine 1% with EPINEPHrine 1:100,000 50 ML MDV ONE (06:37)
[2021-12-07] MEDS ORDERED: Sodium Chloride 0.9% 10 ML ONE (06:47)
[2021-12-07] MEDS ORDERED: fentaNYL 100 MCG/2 ML SDV ONE (07:16)
[2021-12-07] MEDS ORDERED: Midazolam 1 MG/ML 2 ML SDV ONE (07:16)
[2021-12-07] MEDS ORDERED: Propofol 200 MG/20 ML SDV ONE (07:16)
[2021-12-07] MEDS ORDERED: Sodium Chloride 0.9% 1,000 ML IV SCH (07:45)
[2021-12-07] MEDS ORDERED: Lidocaine 1% w/EPINEPHrine 50 ML, Sodium Bicarbonate 5 MEQ in Sodium Chloride 0.9% 950 ML INJECT SCH (08:15)
== END 2021-12-07 10:37 | disposition home or self-care (01) ==
LOC: JP.SDS 06:34
PROVIDERS: ATTEND Surgery
DX: I83.209 Varicose veins of unspecified lower extremity with both ulcer of unspecified site and inflammation (principal); E11.22 Type 2 diabetes mellitus with diabetic chronic kidney disease; I12.9 Hypertensive chronic kidney disease with stage 1 through stage 4 chronic kidney disease, or unspecified chronic kidney disease; N18.30 Chronic kidney disease, stage 3 unspecified; E66.01 Morbid (severe) obesity due to excess calories; E78.00 Pure hypercholesterolemia, unspecified; E03.9 Hypothyroidism, unspecified; G47.30 Sleep apnea, unspecified; I48.91 Unspecified atrial fibrillation; Z98.890 Other specified postprocedural states; Z88.8 Allergy status to other drugs, medicaments and biological substances; Z79.4 Long term (current) use of insulin; Z79.899 Other long term (current) drug therapy; Z88.2 Allergy status to sulfonamides; Z91.030 Bee allergy status
CPT/HCPCS: J1642; J2250; J2704; J3010

== ENCOUNTER 2023-09-16 17:35 | Emergency (ER) | payer MEDICARE, OTHER ==
[2023-09-16] MEDS ORDERED: Sodium Chloride 0.9% 10 ML Syringe FLUSH PRN (17:38)
[2023-09-16] MEDS ORDERED: Nystatin Topical Powder 15 GM Bottle TOP ONE (18:07)
[2023-09-16] MEDS ORDERED: Tranexamic Acid 1,000 MG in Sodium Chloride 0.9% 500 ML IV ONE (18:28)
[2023-09-16 18:42] LABS: APPEARANCE,URINE SLIGHTLY CLOUDY (CLEAR); BILIRUBIN,URINE NEGATIVE (NEGATIVE); COLOR,URINE YELLOW (YELLOW); GLUCOSE,URINE NEGATIVE (NEGATIVE); KETONES,URINE NEGATIVE (NEGATIVE); LEUKOCYTE ESTERASE,URINE SMALL (NEGATIVE); NITRITE,URINE NEGATIVE (NEGATIVE); OCCULT BLOOD,URINE TRACE-LYSED (NEGATIVE); PROTEIN,URINE NEGATIVE (NEGATIVE); UROBILINOGEN,URINE 0.2 EU/dL (0.2-1.0)
[2023-09-16 18:47] LABS: EPITHELIAL CELLS,URINE FEW; RBC,URINE 0-5 (0-5)
[2023-09-16 18:48] LABS: AMORPHOUS SEDIMENT,URINE NOT SEEN; BACTERIA,URINE MANY; MUCUS,URINE NOT SEEN
[2023-09-16 19:10] LABS: BASOPHILS ABSOLUTE AUTO 0.03 K/uL (0.00-0.10); BASOPHILS PERCENT AUTO 0.2 % (0.1-1.3); EOSINOPHILS ABSOLUTE AUTO 0.07 K/uL (0.00-0.40); EOSINOPHILS PERCENT AUTO 0.6 % (0.0-5.4); HEMOGLOBIN 13.5 g/dL (11.2-15.5); IMMATURE GRAN ABSOLUTE AUTO 0.06 K/uL (0.00-0.23); IMMATURE GRAN PERCENT AUTO 0.5 % (0.0-0.7); LYMPHOCYTES ABSOLUTE AUTO 1.33 K/uL (0.8-3.3); MEAN CORPUSCULAR HEMOGLOBIN 28.7 pg (31.6-35.5); MEAN CORPUSCULAR HGB CONC 32.9 g/dL (31.6-35.5); MONOCYTES ABSOLUTE AUTO 0.82 K/uL (0.20-0.90); MONOCYTES PERCENT AUTO 6.8 % (3.3-12.6); NEUTROPHILS ABSOLUTE AUTO 9.82 K/uL (1.0-7.6); NEUTROPHILS PERCENT AUTO 80.9 % (40.0-78.1); PLATELET COUNT,PLT 190 K/uL (130-375); RED BLOOD CELL COUNT 4.71 M/uL (3.77-5.24); WHITE BLOOD CELL COUNT,WBC 12.1 K/uL (3.2-11.0)
[2023-09-16] MEDS ORDERED: Sodium Chloride 0.9% 1,000 ML IV SCH (19:15)
[2023-09-16 19:25] LABS: CALCIUM 9.1 mg/dL (8.5-10.1); CREATININE 1.2 mg/dL (0.6-1.0); EST CRCL DRUG DOSING (CG) 26.81 mL/min; POTASSIUM,K 5.1 mmol/L (3.6-5.2)
[2023-09-16 19:26] LABS: ANION GAP 16.1 mmol/L (5.0-14.0)
== END 2023-09-16 20:20 ==
LOC: JP.ED 17:35
DX: S02.32XA Fracture of orbital floor, left side, initial encounter for closed fracture (principal); S01.112A Laceration without foreign body of left eyelid and periocular area, initial encounter; I48.91 Unspecified atrial fibrillation; B37.2 Candidiasis of skin and nail; I10 Essential (primary) hypertension; E11.9 Type 2 diabetes mellitus without complications; E03.9 Hypothyroidism, unspecified; Z91.030 Bee allergy status; Z88.2 Allergy status to sulfonamides; Z79.01 Long term (current) use of anticoagulants; Z79.82 Long term (current) use of aspirin; Z79.4 Long term (current) use of insulin; W18.30XA Fall on same level, unspecified, initial encounter; Y92.000 Kitchen of unspecified non-institutional (private) residence as the place of occurrence of the external cause
CPT/HCPCS: 36415; 51702; 70450; 70486; 72125; 76377; 80048; 81001; 83735; 85025; 96365; 99285; A9270; J7030; J7040

== ENCOUNTER 2023-10-07 09:43 | Emergency (ER) | payer MEDICARE, OTHER | END 2023-10-07 10:36 | disposition home or self-care (01) | LOC: JP.ED 09:43 | DX: R53.1 Weakness (principal); E11.22 Type 2 diabetes mellitus with diabetic chronic kidney disease; I12.9 Hypertensive chronic kidney disease with stage 1 through stage 4 chronic kidney disease, or unspecified chronic kidney disease; N18.30 Chronic kidney disease, stage 3 unspecified; E03.9 Hypothyroidism, unspecified; Z79.4 Long term (current) use of insulin; Z79.82 Long term (current) use of aspirin; Z79.899 Other long term (current) drug therapy; Z79.01 Long term (current) use of anticoagulants; Z88.2 Allergy status to sulfonamides; Z91.030 Bee allergy status; Z88.8 Allergy status to other drugs, medicaments and biological substances | CPT/HCPCS: 99285 ==